=== PATIENT | female | born 2000 | race Caucasian/White ===

== ENCOUNTER 2021-12-30 17:34 | Emergency (ER) | payer BC, SELFPAY ==
[2021-12-30 17:37] VITALS: BP 95/60; PULSE 93; RESP 16; TEMP 36.8; O2SAT 97; BMI 21.6
--- NOTE | 2021-12-30 17:56 | ED_ITS ---
HPI - General Adult General Time Seen by Provider: 17:58 Date Seen: 12/30/21 Chief complaint: Skin/Abscess/Foreign Body Stated complaint: Perianal Abcess Time Seen by Provider: 12/30/21 17:55 Source: patient and RN notes reviewed Mode of arrival: ambulatory Limitations: no limitations History of Present Illness HPI narrative: Patient is a 21-year-old female with Crohn's disease coming in with concern of a perianal cyst. She has been dealing with a hemorrhoid and has been using [id number] products. The hemorrhoid really is not bothering her that much. She started to feel some increased pain in the rectal area and started to feel around. She felt a small cyst area just to her right of the hemorrhoid. She states about 4 years ago she had to have a cyst drained that she let go for a while and was almost grapefruit size in the perineal area. She states this was a bit closer to the vaginal area. She has not had any fevers or chills. She is on the control patch and is currently menstruating. Related Data Home Medications Medication Instructions Recorded Confirmed cyanocobalamin (vitamin B-12) 1,000 mcg 12/30/21 1,000 mcg/mL injection solution ergocalciferol (vitamin D2) 1,250 50,000 unit 12/30/21 mcg (50,000 unit) capsule mercaptopurine 50 mg tablet 50 mg 12/30/21 norelgestromin 150 mcg-e.estradiol 1 patch 12/30/21 35 mcg/24 hr weekly transderm patch (Xulane) Allergies Allergy/AdvReac Type Severity Reaction Status Date / Time No Known Drug Allergies Allergy Verified 12/30/21 17:41 Review of Systems Status of ROS: Reports: 6 or more systems reviewed and unremarkable except as noted in History and below [facility] Medical History (Updated 12/30/21 @ 19:13 by Renate Sanchez MD) Crohn's disease Exam Const: Vital Signs, click to edit/add: Vital Signs - 24 hr 12/30/21 17:37 Temperature 98.2 F Pulse Rate [Right Pulse Oximeter] 93 Respiratory Rate 16 Blood Pressure [Ri ght Upper Arm] 95/60 Pulse Oximetry 97 Oxygen Delivery Me thod Room Air Documenting provider has reviewed patient's vital signs: yes Common normals: no apparent distress, average body habitus, oriented x3, no limitations, healthy appearing and alert General appearance: cooperative, comfortable and well kempt HENMT: Common normals: normocephalic, head/scalp atraumatic and hearing grossly normal bilaterally Head and scalp: normocephalic and atraumatic Eye: Common normals: PERRL, EOMs intact bilaterally, conjunctivae normal and no scleral icterus Conjunctiva: conjunctiva(e) normal Pupil: PERRL Resp: Common normals: normal respiratory effort, no retractions, no use of accessory muscles and clear to auscultation bilaterally Auscultation: clear to auscultation bilaterally Cardio: Common normals: regular rate, regular rhythm, S1 normal heart sound, S2 normal heart sound, no gallops, no clicks and no murmurs Rate: regular rate Rhythm: regular rhythm Heart sounds: S1 normal and S2 normal GI: Common normals: Normal to inspection, nondistended, normoactive bowel sounds present, soft to palpation, non-tender, no hepatosplenomegaly and no masses Palpation: soft and no hepatosplenomegaly : Other: Anus is visualized, erythematous hemorrhoid right about 12 o'clock position, no purplish discoloration, really is not that tender for patient. She states it is really not bothering her. Just to patient's right about 1/2 cm from the anal verge about 5 o'clock position is a small raised tender area. Neuro: Common normals: oriented x3 Sensorium/orientation: alert Psych: Appearance: well kempt Course Vital Signs Vital signs: Initial Vital Signs Temperature 98.2 F 12/30/21 17:37 Temperature Source Temporal Artery Scan 12/30/21 17:37 Pulse Rate 93 12/30/21 17:37 Respiratory Rate 16 12/30/21 17:37 Blood Pressure 95/60 12/30/21 17:37 Blood Pressure Mean 71 12/30/21 17:37 Blood Pressure Position Sitting 12/30/21 17:37 Pulse Oximetry 97 12/30/21 17:37 Oxygen Delivery Method 12/30/21 17:37 Vital Signs Temperature 98.2 F 12/30/21 17:37 Pulse Rate 93 12/30/21 17:37 Respiratory Rate 16 12/30/21 17:37 Blood Pressure 95/60 12/30/21 17:37 Pulse Oximetry 97 12/30/21 17:37 Oxygen Delivery Method 12/30/21 17:37 Temperature 98.2 F 12/30/21 17:37 Pulse Rate 93 12/30/21 17:37 Respiratory Rate 16 12/30/21 17:37 Blood Pressure 95/60 12/30/21 17:37 Pulse Oximetry 97 12/30/21 17:37 Oxygen Delivery Method 12/30/21 17:37 Critical Care Time Critical Care Time Critical Care Time: No Discharge Plan Discharge Clinical Impression: Abscess, perianal Condition: Stable Instructions: Sitz Bath (DC), Rectal Abscess (ED) Additional Instructions: Recommend sitting in the tub twice a day or as needed to help clean herself. Start Augmentin and take as prescribed. May need to use a pad is this may drain for a few days. Contact your neurocritical care physician tomorrow and let them know of your complication. Should you develop fever, have increasing swelling or pain in the perineum or perirectal area, do recommend re-evaluation. Activity Level: Activity as Tolerated Prescriptions: No Action mercaptopurine 50 mg tablet 50 mg ergocalciferol (vitamin D2) 1,250 mcg (50,000 unit) capsule 50,000 unit Label Comments: TAKE 1 CAPSULE BY MOUTH EVERY WEEK FOR 8 WEEKS cyanocobalamin (vitamin B-12) 1,000 mcg/mL solution 1,000 mcg Xulane 150-35 mcg/24 hr patch weekly 1 patch Label Comments: APPLY 1 PATCH BY TRANSDERMAL ROUTE EVERY WEEK Follow Up/Referrals: Provider,Not a Local [Primary Care Provider] - Stand Alone Forms: [facility] Info Instructions Procedures I/D Type: abscess (Perianal) Details: simple Site: josie-rectal Pre procedure diagnosis: Perianal abscess Post procedure diagnosis: Same Site marking: not applicable Verification/time out: correct patient, correct site, correct procedure and time out performed Name of person performing procedure: Renate Sanchez Local Anesthetic: lidocaine 1% and with epi Amount of anesthesia used (mL): 3 Technique: other (15 blade used for incision, as close to anal verge as possible) Amount of fluid expressed (mL): 2 Packing used?: none Estimated blood loss (if any): other (specify) (Minimal oozing of blood) Complications: pain Conclusion: patient tolerated procedure (Did review complication fistula was with these abscesses)
[2021-12-30] MEDS: lidocaine HCL 2 % JELLY (TOP) STERILE 6 ML TOPICAL (18:30)
== END 2021-12-30 19:30 | disposition home or self-care (01) ==
PROVIDERS: Emergency Provider Family Medicine
DX: K61.0 Anal abscess (principal)
CPT/HCPCS: 10060; 99283

== ENCOUNTER 2022-07-25 16:07 | Inpatient (IN) | payer BC, SELFPAY ==
--- NOTE | 2022-07-25 | CRLHL7_ITS ---
For Patients: As a result of the Century Cures Act, medical imaging exams and procedure reports are released immediately into your electronic medical record. You may view this report before your referring provider. If you have questions, please contact your health care provider. Indication: HIP GROIN PAIN LT SIDE Technique: Pelvis and left hip 3 views Comparison: None Findings: Bones: Alignment is normal. No fractures or bone lesions. Joint spaces: Joint spaces are preserved. No degenerative changes. Soft tissues: Unremarkable. Impression: No findings to explain pain. Dictated by Amilcar La MD @ 07/25/2022 7:48:20 PM (Electronically Signed)
[2022-07-25 16:45] VITALS: BP 92/62; PULSE 104; RESP 14; TEMP 36.8; O2SAT 97; BMI 17.9
--- NOTE | 2022-07-25 17:36 | ED_ITS ---
HPI - Extremity Injury (Lower) General Time Seen by Provider: 17:36 Date Seen: 07/25/22 Chief Complaint: Extremity Pain/Injury, Lower Stated Complaint: L thigh shooting pain, very painful Time Seen by Provider: 07/25/22 17:36 Source: patient, RN notes reviewed and old records reviewed Mode of arrival: ambulatory Limitations: no limitations History of Present Illness HPI Narrative: Patient is a very pleasant 21-year-old female with a history of malnutrition secondary to Crohn's disease who comes to the emergency room with complaints of left leg pain. Patient notes that in March of this year she began experiencing numbness on the outside of her left thigh. She notes that she was told that it would go way but it did not. She states over the past 2 weeks it has now changed in to pain and is quite intense. She notes that she cannot get comfortable. 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 She states that she has difficulty walking and driving. She has tried heat and ice but this only worsens the pain. She does not think there is any weakness on that side and she denies hip or back pain. She cannot recall any injury. In May patient was tapered off of steroids after a flare of her Crohn's. She was very anemic and malnourished at that time. And she was hospitalized. She normally sees Nini samaniego. She is due for ENTYVIO injection in August. She notes that she is also lactose tolerant is very limited on her food intake. She notes that her Crohn's is ?not doing well and ?. Patient denies any discomfort or numbness extending past the knee. Again, cannot recall any trauma. Has not used any pain medication for this. Related Data Home Medications Medication Instructions Recorded Confirmed cyanocobalamin (vitamin B-12) 1,000 mcg subcut .QMONTH 12/30/21 07/25/22 1,000 mcg/mL injection solution ergocalciferol (vitamin D2) 1,250 50,000 unit PO QWEEK 12/30/21 07/25/22 mcg (50,000 unit) capsule mercaptopurine 50 mg tablet 50 mg PO 12/30/21 Allergies Allergy/AdvReac Type Severity Reaction Status Date / Time No Known Drug Allergies Allergy Verified 12/30/21 17:41 Review of Systems Status of ROS: Reports: 10 or more systems reviewed and unremarkable except as noted in History and below Const: Reports: change in weight and fatigue; Denies: fever or chills Eyes: Denies: change in vision ENMT: Denies: throat pain, neck pain, throat swelling or difficulty swallowing Cardio: Denies: chest pain or shortness of breath with exertion Resp: Denies: shortness of breath or cough GI: Denies: abdominal pain, nausea, vomiting, diarrhea or difficulty swallowing : Denies: painful urination Musculo: Reports: extremity pain; Denies: back pain, neck pain, extremity swelling or joint pain Integ/Breast: Denies: rash Neuro: Denies: headache Endo: Reports: fatigue; Denies: excessive urination Allergy/Immuno: Denies: throat swelling PFSH PFSH Medical History (Updated 07/25/22 @ 22:10 by Gin Reynolds MD) Crohn's disease ?K50.90 - Crohn's disease, unspecified, without complications (ICD-10) Protein-calorie malnutrition, moderate ?E44.0 - Moderate protein-calorie malnutrition (ICD-10) Surgical History (Updated 07/25/22 @ 21:54 by Gin Reynolds MD) Do-rectal abscess ?K61.1 - Rectal abscess (ICD-10) H/O ileostomy ?Z98.890 - Other specified postprocedural states (ICD-10) Family History (Updated 07/25/22 @ 21:24 by Gin Reynolds MD) Other Do-rectal abscess Social History (Updated 07/25/22 @ 21:29 by Gin Reynolds MD) Narrative: lives in , single. Never . no children. vapes nicotine/THC. smokes THC prn nausea. no regular alcohol. Smoking Status: Never smoker Do you use any of these nicotine containing products: None Second hand tobacco smoke exposure: No How often do you have a drink containing alcohol: never How many standard drinks containing alcohol do you have on a typical day: 1 or 2 How often do you have six or more drinks on one occasion: Never AUDIT-C Alcohol total score: 0 Non-prescribed substance use: marijuana (any form) Caffeine: No service: No Exam Narrative: Exam Narrative: Patient is alert and oriented. Presents here with a family member I believe. She is pale in appearance. EOM is full. No respiratory distress. Palpation down lumbar spine and buttock including sciatic notch without discomfort. No pain over the greater trochanter. Pain appears to be left lateral thigh over the iliotibial tibial band. No evidence of asymmetry of thighs. Hip flexion knee extension and flexion as well abduction and adduction all within normal limits. Point tenderness noted over the iliotibial band. She is able to walk on her toes. When walking on her heels it seems like she has slight decreased ability to keep her foot up on the left. Plantar flexion bilaterally equal possibly subtle decreased dorsiflexion on the left. DTRs 0 on the left knee and 1+ on the right. Equal at the ankles. Const: Vital Signs, click to edit/add: Vital Signs - 24 hr 07/25/22 16:45 07/25/22 20:02 07/25/22 20:28 Temperature 98.3 F 98.5 F Pulse Rate [Left R adial] 82 Pulse Rate [Right Pulse Oximeter] 104 H 89 Respiratory Rate 14 18 20 Blood Pressure [Ri ght Arm] 103/50 L Blood Pressure [Ri ght Upper Arm] 92/62 89/56 L Pulse Oximetry 97 100 98 Oxygen Delivery Me thod Room Air Room Air Room Air 07/25/22 20:28 Temperature Pulse Rate [Left R adial] Pulse Rate [Right Pulse Oximeter] Respiratory Rate 18 Blood Pressure [Ri ght Arm] Blood Pressure [Ri ght Upper Arm] Pulse Oximetry 98 Oxygen Delivery Me thod Room Air Documenting provider has reviewed patient's vital signs: yes Course Course Hospital Course: Differential diagnosis includes ileal ability ill band injury, radicular pain, malnutrition. Will draw blood to include CBC, comprehensive, sed rate, CRP, magnesium, thigh min, B12. Will also obtain x-rays of the lumbar spine and femur. Reevaluation(s) Reevaluation #1: Patient noted to have a potassium of 2.7. Upon further discussion she notes that she has had increasing loose stools recently. States that she is unable to keep anything down. Will place an IV and give her 1 L of normal saline, 10 mEq bumps of potassium for a total of 4. Will also attempt p.o. replacement although this likely will induce diarrhea. Patient does not know of history of leukocytosis with her Crohn's in the past. Vital Signs Vital signs: Initial Vital Signs Temperature 98.3 F 07/25/22 16:45 Temperature Source Temporal Artery Scan 07/25/22 16:45 Pulse Rate 104 H 07/25/22 16:45 Respiratory Rate 14 07/25/22 16:45 Blood Pressure 92/62 07/25/22 16:45 Blood Pressure Mean 72 07/25/22 16:45 Blood Pressure Position Sitting 07/25/22 16:45 Pulse Oximetry 97 07/25/22 16:45 Oxygen Delivery Method Room Air 07/25/22 16:45 Vital Signs Temperature 98.3 F 07/25/22 16:45 Pulse Rate 104 H 07/25/22 16:45 Respiratory Rate 14 07/25/22 16:45 Blood Pressure 92/62 07/25/22 16:45 Pulse Oximetry 97 07/25/22 16:45 Oxygen Delivery Method Room Air 07/25/22 16:45 Temperature 98.5 F 07/25/22 20:28 Pulse Rate 82 07/25/22 20:28 Respiratory Rate 18 07/25/22 20:28 Blood Pressure 103/50 L 07/25/22 20:28 Pulse Oximetry 98 07/25/22 20:28 Oxygen Delivery Method Room Air 07/25/22 20:28 MDM - Extremity Injury (Lower) MDM Narrative Medical decision making narrative: 1. Left leg pain-x-rays do not show any abnormality. Will treat with Toradol 15 mg IV. 2. Crohn's with malnutrition -IV will be placed. Further medications per inpat ient physician. Leukocytosis noted but no significant pain with abdominal exam. Patient does note history of perirectal abscess and does have a C tongue in place at this time. She notes no increased problems with this or excessive discomfort. 3. Hypokalemia-oral potassium 50 mEq plus 10 mEq riders have been ordered. Patient does worn me that she may be able to drink potassium but it will ?go r ight through her?. Zofran 4 mg IV x1. 4. Relative hypomagnesemia-current value 1.8 but probably represents overall body depletion. 1 g ordered IV. 5. Disposition-admit to the floor under the care of Dr. Reynolds. Do not have all of our tests ordered nor results returned. Given high patient volume have expedited patient's moved to the floor. Medical Records Attestation: I reviewed the patient's medical records. Lab Data Attestation: I reviewed the patient's lab results. Labs: Lab Results 07/25/22 Range/Units 18:08 WBC 16.04 H (4.50-11.00) K/uL RBC 4.64 (4.00-5.20) m/uL Hgb 12.5 (12.0-16.0) gm/dL Hct 37.7 (33.0-51.0) % MCV 81 (80-100) fL MCH 27 (26-34) pg MCHC 33 (32-36) gm/dL RDW Coeff of Moises 15.1 (11.5-15.5) % Plt Count 562 H (140-440) K/uL Neut % (Auto) 78.9 H (42.0-72.0) % Lymph % (Auto) 12.7 L (20-44) % [place] % (Auto) 6.6 (0.0-11.0) % Eos % (Auto) 1.4 (0.0-7.0) % Baso % (Auto) 0.1 (0.0-3.0) % Neut # (Auto) 12.70 H (1.7-7.0) K/uL Lymph # (Auto) 2.00 (0.90-2.90) K/uL [place] # (Auto) 1.10 H (0.00-0.90) K/UL Eos # (Auto) 0.20 (0.00-0.50) K/uL Baso # (Auto) 0.00 (0.00-0.30) K/uL ESR 53 H (2-20) mm/hr Sodium 131 L (135-149) mmol/L Potassium 2.7 L* (3.6-5.1) mmol/L Chloride 95 L (96-114) mmol/L Carbon Dioxide 30 (20-32) mmol/L BUN 7 (5-24) mg/dL Creatinine 0.5 (0.5-1.5) mg/dL Estimated Creat Clear 128.72 Estimated GFR 137 ml/min Glucose 91 (60-115) mg/dL Calcium 8.1 L (8.4-10.6) mg/dL Phosphorus 3.7 (2.5-4.5) mg/dL Magnesium 1.8 (1.5-2.6) mg/dL Total Bilirubin 0.4 (0.1-1.5) mg/dL AST 19 (12-35) U/L ALT 13 (4-35) U/L Alkaline Phosphatase 139 (40-150) U/L C-Reactive Protein 8.7 H (0.5-1.0) mg/dL Total Protein 6.9 (6.0-8.3) g/dL Albumin 2.8 L (3.3-5.0) g/dL Vitamin B12 815 (243-894) pg/mL Procalcitonin 38.90 H (<0.50) ng/mL TSH 2.080 (0.270-4.20) uIU/mL Free T4 2.35 H (0.70-1.85) ng/dL Imaging Data Lumbar spine: Attestation: I have reviewed the pertinent imaging results. My impression: No obvious abnormalities Radiologist's impression: Bones: Alignment is normal.? No fractures or significant bone lesions. Joints: Disc spaces and facets are unremarkable. Soft tissues: Unremarkable. Femur x-ray: Attestation: I have reviewed the pertinent imaging results. My impression: No obvious abnormalities Radiologist's impression: Bones: Alignment is normal. No fractures or bone lesions. Joint spaces: Joint spaces are preserved. No degenerative changes. Soft tissues: Unremarkable. Impression: No findings to explain pain. Chest x-ray: Attestation: I have reviewed the pertinent imaging results. My impression: No infiltrates. Radiologist's impression: Cardiovascular and mediastinum:? Heart size and vasculature are normal in caliber and appearance.? Mediastinum is within normal limits.? Lungs and pleural spaces:? Lungs are clear.? No sign of infiltrate or mass. ?No sign of pleural effusion.? No pneumothorax.? Bones and soft tissues:? No significant findings. Discharge Plan Discharge Clinical Impression: Acute pain of left thigh, Crohn's disease, Hypokalemia Patient Disposition: Admitted As Inpatient Condition: Improved
--- NOTE | 2022-07-25 17:47 | CRLHL7_ITS ---
For Patients: As a result of the Cures Act, medical imaging exams and procedure reports are released immediately into your electronic medical record. You may view this report before your referring provider. If you have questions, please contact your health care provider. INDICATION: Left lateral leg pain. TECHNIQUE: Lumbar spine 2 view. COMPARISON: None. FINDINGS: Bones: Alignment is normal. No fractures or significant bone lesions. Joints: Disc spaces and facets are unremarkable. Soft tissues: Unremarkable. Dictated by Shravan Garcia MD @ 07/25/2022 7:44:30 PM (Electronically Signed)
--- NOTE | 2022-07-25 17:47 | CRLHL7_ITS ---
For Patients: As a result of the Cures Act, medical imaging exams and procedure reports are released immediately into your electronic medical record. You may view this report before your referring provider. If you have questions, please contact your health care provider. Indication: Left lateral leg pain, dorsiflexion weakness Technique: Two views Comparison: None Findings/Impression: Bones: Alignment is normal. No fractures or bone lesions. Joint spaces: Unremarkable. Soft tissues: Unremarkable. Dictated by Alden Solis MD @ 07/25/2022 7:47:08 PM (Electronically Signed)
[2022-07-25 18:17] LABS: Basophils Percent Auto 0.1 % (0.0-3.0); Eosinophils Percent Auto 1.4 % (0.0-7.0); Hematocrit 37.7 % (33.0-51.0); Hemoglobin* 12.5 gm/dL (12.0-16.0); Immature Granulocytes Pct Auto 0.3 %; Lymphocytes Percent Auto 12.7 % (20-44); Mean Corpuscular HGB Conc 33 gm/dL (32-36); Mean Corpuscular Hemoglobin 27 pg (26-34); Mean Corpuscular Volume 81 fL (80-100); Monocytes Percent Auto 6.6 % (0.0-11.0); Neutrophils Percent Auto 78.9 % (42.0-72.0); Platelet Count* 562 K/uL (140-440); RDW Coefficient of Variation % 15.1 % (11.5-15.5); Red Blood Count 4.64 m/uL (4.00-5.20); White Blood Count* 16.04 K/uL (4.50-11.00)
[2022-07-25 18:30] LABS: Albumin* 2.8 g/dL (3.3-5.0); Chloride* 95 mmol/L (96-114); Slide Review Reflex No; Sodium* 131 mmol/L (135-149)
[2022-07-25 18:32] LABS: Bilirubin Total* 0.4 mg/dL (0.1-1.5); Creatinine* 0.5 mg/dL (0.5-1.5); Est. Creatinine Clearance* 128.72; Estimated Glomerular Filt Rate 137 ml/min
[2022-07-25 18:33] LABS: Alanine Aminotransferase* 13 U/L (4-35); Alkaline Phosphatase* 139 U/L (40-150); Aspartate Amino Transferase* 19 U/L (12-35); Blood Urea Nitrogen* 7 mg/dL (5-24); Carbon Dioxide* 30 mmol/L (20-32); Glucose* 91 mg/dL (60-115); Total Protein* 6.9 g/dL (6.0-8.3)
[2022-07-25 18:34] LABS: Calcium* 8.1 mg/dL (8.4-10.6); Magnesium* 1.8 mg/dL (1.5-2.6)
[2022-07-25 18:35] LABS: Potassium* 2.7 mmol/L (3.6-5.1)
--- NOTE | 2022-07-25 18:35 | ED.NURSE ---
call from lab, winnie Wright MD notified.
[2022-07-25 18:36] LABS: C Reactive Protein* 8.7 mg/dL (0.5-1.0)
--- NOTE | 2022-07-25 18:44 | CRLHL7_ITS ---
For Patients: As a result of the Century Cures Act, medical imaging exams and procedure reports are released immediately into your electronic medical record. You may view this report before your referring provider. If you have questions, please contact your health care provider. Indication: Leukocytosis. Technique: Chest 2 views Comparison: None Findings/Impression: Cardiovascular and mediastinum: Heart size and vasculature are normal in caliber and appearance. Mediastinum is within normal limits. Lungs and pleural spaces: Lungs are clear. No sign of infiltrate or mass. No sign of pleural effusion. No pneumothorax. Bones and soft tissues: No significant findings. Dictated by Alden Solis MD @ 07/25/2022 7:46:08 PM (Electronically Signed)
[2022-07-25 19:22] LABS: Vitamin B12* 815 pg/mL (243-894)
[2022-07-25 19:26] LABS: Erythrocyte SedimentationRate* 53 mm/hr (2-20)
[2022-07-25] MEDS: 0.9 % SODIUM CHLORIDE 1000 ml 1,000 ML IV (19:43)
[2022-07-25] MEDS: KETOROLAC 15 MG/ML inj IVP (19:45)
[2022-07-25] MEDS: POTASSIUM CHLORIDE 10 MEQ/100 ML PIGGYBACK 100 MEQ IVPB ×2 (19:45→21:36)
[2022-07-25] MEDS: ONDANSETRON 2 MG/ML inj 4 MG IVP (19:45)
[2022-07-25 20:02] VITALS: BP 89/56; PULSE 89; RESP 18; O2SAT 100
--- OUTSIDE RECORDS SUMMARY | 2022-07-25 20:05 | XMS_ITS | Continuity of Care Document ---
Author Name Unknown Organization [facility] Address [address] [address] [place] [address] Phone Care Team Providers Care Certified Dialysis Technician Name Role Phone Patricio Velasco MD Unavailable Unavailable Allergies, Adverse Reactions, Alerts Substance Reaction Status Criticality No Known Allergies Active No Inform ation Medications Medication Instructions Dosage Effective Dates (start - stop) Status Comments mercaptopurine 50 mg tablet TAKE 1 TABLET BY MOUTH EVERY DAY - Active Entyvio 300 mg intravenous solution Administer Entyvio 300 mg every six weeks, infuse by IV route - Active syringe with needle 1 mL 25 gauge x 1 Use as directed for vitamin B12 injections. - Active Vitamin D2 1,250 mcg (50,000 unit) capsule take 1 capsule by oral route every week for 8 weeks - Active cyanocobalamin (vit B-12) 1,000 mcg/mL injection solution inject 1 milliliter by intramuscular route once a week for 4 weeks then once a month thereafter - Active Valtrex 500 mg tablet take 1 tablet by o ral route every day as needed 500 MG - Active Calcium 600 600 mg calcium (1,500 mg) tablet take 1 by oral route 2 times every day 1 - Active Chewable-Guy tablet take [address] e every day - Active iron 325 mg (65 mg iron) tablet take 3 tablet by ORAL route every day 975 MG - Active Vitamin D3 5,000 unit tablet take 1 Tablet by Oral route every day 1 Tablet - Active Procedures Procedure Date Offic/outpt E&m Estab Low-mod 3 Entyvio - vedolizumab Iv Infus Therap/dx-by Phys; To Routine Serum Collection Medical nutrition therapy, initial, each 15 minutes Entyvio - vedolizumab Iv Infus Therap/dx-by Phys; To 23 Offic/outpt E&m Estab Minor Offic/outpt E&m Estab Mod-hi 2 23 Routine Serum Collection Subsqt Hosp-da E&m Minr Compl 3 Subsqt Hosp-da E&m Minr Compl 3 Colonoscopy Flex; W/bx 1/mx Subsqt Hosp-da E&m Minr Compl 3 Init Inpt Cons New/est Mod-hi 3 Entyvio - vedolizumab Iv Infus Therap/dx-by Phys; To 23 Vit B-12 Cyanocobalamin -1000 M 023 Therap/dx Inj; Subq/im Offic/outpt E&m Estab Mod-hi 2 22 Entyvio - vedolizumab Iv Infus Therap/dx-by Phys; To 22 Routine Serum Collection Offic/outpt E&m Estab Mod-hi 2 22 Immuniz Admin; 1/combo Vacc/to Flucelvax Quad 0.5 ML Iv Infus Therap/dx-by Phys; To Entyvio - vedolizumab Offic/outpt E&m Estab Vit B-12 Cyanocobalamin -1000 M 022 Therap/dx Inj; Subq/im Offic/outpt E&m Estab Low-mod 2 Routine Serum Collection Iv Infus Therap/dx-by Phys; To Entyvio - vedolizumab Iv Infus Therap/dx-by Phys; To Entyvio - vedolizumab Routine Serum Collection Iv Infus Therap/dx-by Phys; To Entyvio - vedolizumab Iv Infus Therap/dx-by Phys; To Entyvio - vedolizumab Routine Serum Collection Offic/outpt E&m Estab Offic/outpt E&m Estab Low-mod 2 Routine Serum Collection Entyvio - vedolizumab Iv Infus Therap/dx-by Phys; To Iv Infus Therap/dx-by Phys; To Entyvio - vedolizumab Iv Infus Therap/dx-by Phys; To Entyvio - vedolizumab Routine Serum Collection Established Level 4 Routine Serum Collection Offic/outpt E&m Estab Mod-hi 2 Offic/outpt E&m Estab Low-mod 1 Routine Serum Collection Glutamyltransferase Gamma Hepatitis C Antibody; Hepatic Function Panel Routine Serum Collection Immuniz Admin; 1/combo Vacc/to Pneumococcal Polysacch Vac-aicha Bld Ct; Hg/pltlt Ct Auto/compl Iron Iron Binding Capacity Folic Acid; Serum Ferritin Cyanocobalamin Vitamin D; 25 Hydroxy Hepatic Function Panel Established Level 4 Immuniz Admin; 1/combo Vacc/to Hep A-hep B Vaccine Adult Dose Routine Serum Collection Immuniz Admin; 1/combo Vacc/to Hep A-hep B Vaccine Adult Dose FilmArray GI Panel Offic/outpt E&m Estab Mod-hi 2 Routine Serum Collection Immuniz Admin; 1/combo Vacc/to Influenza vaccine-quadrivalent 0.5 ML No Immuniz Admin; 2/> Sing/comb V [id number] Vaccine Ag-immunoassay; Hep B Surface 0 Gg; Iga, Igd, Igg, Igm, Ea Bld Ct; Hg/pltlt Ct Auto/compl Sed Rate, Erythrocyte; Auto C-reactive Prot Comp Metabolic Panel Ferritin Folic Acid; Serum Glutamyltransferase Gamma Hepatitis A Antibody; Igg & Ig Hep B Core Antibody Hepatitis B Surface Antibody Iron Iron Binding Capacity Cyanocobalamin Vitamin D; 25 Hydroxy Bilirubin; Direct Routine Serum Collection Offic/outpt E&m Estab Mod-hi 2 Sep-15-[address] Hg/pltlt Ct Auto/compl 20 C-reactive Prot Comp Metabolic Panel Cyanocobalamin Routine Serum Collection Hepatic Function Panel Routine Serum Collection Offic/outpt E&m Estab Mod-hi [address] Hg/pltlt Ct Auto/compl Prothrombin Time Hepatic Function Panel Routine Serum Collection Hepatic Function Panel Gg; Iga, Igd, Igg, Igm, Ea Routine Serum Collection Ag-immunoassay; Hep B Surface 0 Hepatitis C Antibody; Prothrombin Time Gg; Iga, Igd, Igg, Igm, Ea Routine Serum Collection Bld Ct; Hg/pltlt Ct Auto/compl 20 Sed Rate, Erythrocyte; Auto C-reactive Prot Hepatic Function Panel Routine Serum Collection Bld Ct; Hg/pltlt Ct Auto/compl 19 Sed Rate, Erythrocyte; Auto C-reactive Prot Comp Metabolic Panel Offic/outpt E&m Estab Low-mod 9 Immuniz Admin; 1/combo Vacc/to 19 Influenza vaccine-quadrivalent 0.5 ML No Routine Serum Collection Hepatic Function Panel Bld Ct; Hg/pltlt Ct Auto/compl 19 Routine Serum Collection Hepatic Function Panel Bld Ct; Hg/pltlt Ct Auto/compl 19 Routine Serum Collection Offic/outpt E&m Estab Mod-hi [address] Hg/pltlt Ct Auto/compl 19 C-reactive Prot Comp Metabolic Panel Ferritin Iron Iron Binding Capacity Cyanocobalamin Vitamin D; 25 Hydroxy Offic/outpt E&m Estab Iv Infus Therap/dx-by Phys; To 18 Stelara Infusion Routine Serum Collection Init Hosp-da E&m Mod Severity 8 Subsqt Hosp-da E&m Minr Compl 8 Subsqt Hosp-da E&m Minr Compl 8 Subsqt Hosp-da E&m Sig Compl 3 18 Routine Serum Collection Bld Ct; Hg/pltlt Ct Auto/compl 18 Comp Metabolic Panel Offic/outpt E&m Estab Mod-hi 2 18 Routine Serum Collection Bld Ct; Hg/pltlt Ct Auto/compl 18 Hepatic Function Panel Offic/outpt E&m Estab Low-mod 8 Routine Serum Collection C-reactive Prot Bld Ct; Hg/pltlt Ct Auto/compl 18 Sed Rate, Erythrocyte; Auto Comp Metabolic Panel Routine Serum Collection Phosphorus Inorganic Bilirubin; Direct Comp Metabolic Panel Bld Ct; Hg/pltlt Ct Auto/compl 18 Routine Serum Collection Phosphorus Inorganic Basic Metabolic Panel Routine Serum Collection Offic/outpt E&m Estab Mod-hi [address] Hg/pltlt Ct Auto/compl 18 Phosphorus Inorganic Cyanocobalamin C-reactive Prot Comp Metabolic Panel Routine Serum Collection Bld Ct; Hg/pltlt Ct Auto/compl 18 Sed Rate, Erythrocyte; Auto C-reactive Prot Vitamin D; 25 Hydroxy Comp Metabolic Panel Routine Serum Collection Bld Ct; Hg/pltlt Ct Auto/compl 18 Routine Serum Collection Routine Serum Collection Offic/outpt E&m Estab Mod-hi 2 18 Cyanocobalamin C-reactive Prot Comp Metabolic Panel Bld Ct; Hg/pltlt Ct Auto/compl 18 Sed Rate, Erythrocyte; Auto Routine Serum Collection C-reactive Prot Vitamin D; 25 Hydroxy Comp Metabolic Panel Bld Ct; Hg/pltlt Ct Auto/compl 17 Sed Rate, Erythrocyte; Auto Offic/outpt E&m Estab Low-mod 7 Routine Serum Collection Urea Nitro; Uziel Creatinine; Bld Ag-immunoassay; Hep B Surface 6 Hepatic Function Panel Bld Ct; Hg/pltlt Ct Auto/compl 16 Routine Serum Collection Offic/outpt E&m Estab Mod-hi [address] Hg/pltlt Ct Auto/compl 16 Comp Metabolic Panel Offic/outpt E&m Estab Mod-hi 2 16 Subsqt Hosp-da E&m Minr Compl 6 Subsqt Hosp-da E&m Minr Compl 6 Subsqt Hosp-da E&m Minr Compl 6 Subsqt Hosp-da E&m Minr Compl 6 Subsqt Hosp-da E&m Minr Compl 6 Subsqt Hosp-da E&m Minr Compl 6 Subsqt Hosp-da E&m Minr Compl 6 Subsqt Hosp-da E&m Minr Compl 6 Offic/outpt E&m Estab Mod-hi 2 15 Subsqt Hosp-da E&m Minr Compl 5 Init Hosp-da E&m Mod Severity 5 Subsqt Hosp-da E&m Minr Compl 5 C. Difficile Toxin Gene, SALINA Routine Serum Collection Bld Ct; Hg/pltlt Ct Auto/compl 15 C-reactive Prot Comp Metabolic Panel Offic/outpt E&m Estab Mod-hi 2 15 Offic/outpt E&m Estab Mod-hi 2 15 Offic/outpt E&m Estab Mod-hi 2 15 Offic/outpt E&m Estab Mod-hi 2 15 Offic/outpt E&m Estab Mod-hi 2 14 Routine Serum Collection Ua Dip Stik/tablet; Wo Micro A 14 Sed Rate, Erythrocyte; Auto Cyanocobalamin C-reactive Prot Comp Metabolic Panel Iron Iron Binding Capacity Bilirubin; Direct Bld Ct; Hg/pltlt Ct Auto/compl 14 Offic/outpt E&m Estab Mod-hi 2 13 Routine Serum Collection Bld Ct; Hg/pltlt Ct Auto/compl 13 Sed Rate, Erythrocyte; Auto Ag-immunoassay; Hep B Surface 3 C-reactive Prot Comp Metabolic Panel Offic/outpt E&m Estab Low-mod 2 Routine Serum Collection G8447 Bld Ct; Hg/pltlt Ct Auto/compl 12 Sed Rate, Erythrocyte; Auto Cyanocobalamin C-reactive Prot Comp Metabolic Panel Offic/outpt E&m Estab Mod-hi 2 12 [id number] Ugi Endo; W/bx 1/mx Colonoscopy Flex; W/bx 1/mx Offic Cons New/estab Mod Routine Serum Collection G8447 Bld Ct; Hgb Iron Iron Binding Capacity Advance Directives Directive Yes / No Effective Date File Name No Information Encounters Encounter Description Practice Location Reason(s) For Visit Diagnoses Date Provider Providers Copied on Encounter [facility], [address] [address], [facility] [place], [id number], [place] tel:[phone] [facility] Crohn's disease of small intestine without complications 3 Krista Curry. [address] [facility], [address], [id number], [place]. tel:[phone] Referring Provider: Referral Self. Offic/outpt E&m Estab Low-mod [facility], [address] [address], [place], [address], [place] tel:[phone] [facility] GI Symptoms or Concerns (chief complaint) Abnormal LFTs 3 Jessa Ellis. [address], [id number], [place]. tel:[phone] Referring Provider: Referral Self. [facility], [address] [address], [facility] [place], [address], [place] tel:[phone] [facility] Crohn's disease of small intestine without complications 3 Jessa Ellis. [address], [id number], [place]. tel:[phone] Referring Provider: Referral Self. [facility], [address] [address], [facility] [place], [address], [place] tel:[phone] [facility] Crohn's disease of small intestine without complications 3 Marianna Tran. [address] [facility], [address], [place], [address], [place]. tel:[phone] [facility], [address] [address], [place], [address], [place] tel:[phone] [facility] Crohn's disease of small intestine without complications 3 Marianna Tran. [address], [id number], [place]. tel:[phone] Referring Provider: Referral Self. [facility], [address] [address], [place], [address], [place] tel:[phone] [facility] GI Symptoms or Concerns (chief complaint) Weight lossFatty liver disease, nonalcoholicDi etary counseling and surveillance 3 Laney Loco. [address], [id number], [place]. tel:[phone] Referring Provider: Referral Self. [facility], [address] [address], [place], [address], [place] tel:[phone] [facility] Crohn's disease of small intestine without complications 3 Rishabh Adams. [address] [facility] [address], [place], [id number], [place]. tel:[phone] Referring Provider: Referral Self. Offic/outpt E&m Estab Minor [facility], [address] [address], [place], [address], [place] tel:[phone] [facility] GI Symptoms or Concerns (chief complaint) Fatty liver disease, nonalcoholicEl evated liver function tests 3 Marianna Tran. [facility] [address], [id number], [place]. tel:[phone] Referring Provider: Referral Self. [facility], [address] [address], [place], [address], [place] tel:[phone] [facility] Crohn's disease of small intestine without complication 3 Krista Curry. [address] [facility], [facility] [address], [place], [place], [address], [place]. tel:[phone] Offic/outpt E&m Estab Mod-hi 2 [facility], [address] [address], [place], [place], [address], [place] tel:[phone] [facility] Comment (chief complaint) Crohn's disease of small intestine without complicationPe rianal Crohn's disease, with fistulaStrictu re of small intestineLow serum albuminAbnorma l liver enzymesFatty liver disease, nonalcoholic 3 Krista Curry. [address] [facility], [facility], [place], [place], [address], [place]. tel:[phone] Referring Provider: Referral Self. [facility] [place], [address] [address], [place], [place], [address], [place] tel:[phone] [facility] No Information 3 Zachery Santamaria. [address] [facility], [facility], [place], [place], [address], [place]. tel:[phone] Subsqt Hosp-da E&m Minr Compl [facility], [address] [address], [place], [place], [address], [place] tel:[phone] [facility] No Information 3 Zachery VILLASEÑOR Hina. [address] [facility], [facility] [address], [place], [address], [place]. tel:[phone] Referring Provider: Patricio Velasco MD, [address] [facility] [address], [place], [address] . tel:[phone] Subsqt Hosp-da E&m Minr Compl [facility], [address] [address], [place], [place], [address], [place] tel:[phone] [facility] No Information 3 Art Katz. [address] [place] [address], [address], [id number], [place]. tel:[phone] Referring Provider: Sterling Cordova MD, [address] [facility] [address], [place], [address] . tel:[phone] Init Inpt Cons New/est Mod-hi [facility], [address] [address], [place], [address], [place] tel:[phone] [facility] No Information 3 Zachery Santamaria. [address] [facility], [address], [place], [place], [address], [place]. tel:[phone] Referring Provider: Sterling Cordova MD, [address] [facility] [address], [place], [address] . tel:[phone] [facility], [address] [address], [place], [address], [place] tel:[phone] [facility] Crohn's disease of small intestine without complicationsN ight sweatsWeight loss 3 Rishabh Adams. [address] [facility], [address], [place], [place], [address], [place]. tel:[phone] Referring Provider: Referral Self. [facility], [address] [address], [place], [address], [place] tel:[phone] [facility] Crohn's disease of small intestine with other complicationVi tamin B12 deficiency 3 Jacquie Gabriel. [address] [facility], [address], [place], [place], [address], [place]. tel:[phone] Referring Provider: Referral Self. [facility], [address] [address], [place], [address], [place] tel:[phone] [facility] Abnormal liver enzymesFatty liver disease, nonalcoholic 2 Marianna Tran. [address] [facility], [address], [place], [place], [address], [place]. tel:[phone] [facility], [address] [address], [place], [address], [place] tel:[phone] [facility] Crohn's disease of small intestine without complications 2 Marianna Tran. [address], [id number], [place]. tel:[phone] Offic/outpt E&m Estab Mod-hi 2 [facility], [address] [address], [place], [address], [place] tel:[phone] [facility] GI Symptoms or Concerns (chief complaint) Elevated alkaline phosphatase level 2 Marianna Tran. [address], [id number], [place]. tel:[phone] Referring Provider: Referral Self. [facility], [address] [address], [place], [address], [place] tel:[phone] [facility] Crohn's disease of small intestine without complications 2 Quique Morales. [address], [id number], [place]. tel:[phone] Referring Provider: Referral Self. [facility], [address] [address], [place], [id number], [place] tel:[phone] [facility] Crohn's disease of small intestine without complications 2 Krista Curry. [address], [id number], [place]. tel:[phone] Referring Provider: Referral Self. [facility], [address] [address], [place], [address], [place] tel:[phone] [facility] Crohn's disease of small intestine without complications 2 Krista Curry. [address], [id number], [place]. tel:[phone] Offic/outpt E&m Estab Mod-hi 2 [facility], [address] [address], [place], [id number], [place] tel:[phone] [facility] GI Symptoms or Concerns (chief complaint) Crohn's disease of small intestine without complicationsL ower abdominal painNausea and vomiting in adultHeartburn Constipation, unspecified constipation typeAlkaline phosphatase elevation 2 Krista Curry. [address] [facility], [address], [id number], [place]. tel:[phone] Referring Provider: Referral Self. [facility], [address] [address], [place], [address], [place] tel:[phone] [facility] No Information 2 Krista Curry. [address] [facility], [address], [id number], [place]. tel:[phone] [facility], [address] [address], [place], [id number], [place] tel:[phone] [facility] Crohn's disease of small intestine without complications 2 Krista Curry. [address] [facility], [facility] [address], [place], [address], [place]. tel:[phone] [facility], [address] [address], [place], [address], [place] tel:[phone] [facility] Crohn's disease of both small and lg int w/o complications 2 Rishabh Adams. [address] [facility], [facility] [address], [place], [address], [place]. tel:[phone] Referring Provider: Referral Self. Offic/outpt E&m Estab [facility], [address] [address], [place], [address], [place] tel:[phone] [facility] GI Symptoms or Concerns (chief complaint) Vitamin B12 deficiencyCroh n's disease of both small and large intestine without complication 2 Joel Ferguson. [address] [facility], [facility] [address], [place], [address], [place]. tel:[phone] Referring Provider: Referral Self. [facility], [address] [address], [place], [id number], [place] tel:[phone] [facility] Deficiency of other specified B group vitamins Nov-0 2 Krista Curry. [address] [facility], [place] [address], [place], [place], [address], [place]. tel:[phone] Referring Provider: Referral Self. [facility], [address] [address], [place], [id number], [place] tel:[phone] [facility] No Information Nov-0 [address]a Crury. [address] [place] [address], [address], [id number], [place]. tel:[phone] Offic/outpt E&m Estab Low-mod [facility], [address] [address], [place], [address], [place] tel:[phone] [facility] GI Symptoms or Concerns (chief complaint) Crohn's disease of small intestine without complicationsA lkaline phosphatase elevationVitam in B12 deficiency Nov-0 2 Krista Curry. [address] [place] [address], [address], [id number], [place]. tel:[phone] [facility], [address] [address], [place], [id number], [place] tel:[phone] [facility] Crohn's disease of both small and lg int w/o complications 2 Navi Ruano. [address] [facility], [address], [id number], [place]. tel:[phone] Referring Provider: Referral Self. [facility], [address] [address], [place], [id number], [place] tel:[phone] [facility] Crohn's disease of both small and lg int w/o complications 2 Jessa Ellis. [address] [facility], [address], [id number], [place]. tel:[phone] [facility], [address] [address], [place], [address], [place] tel:[phone] [facility] Crohn's disease of small intestine with other complicationAb normal levels of other serum enzymes 0 2 Jacquie Gabriel. [address], [id number], [place]. tel:[phone] Referring Provider: Referral Self. [facility], [address] [address], [place], [address], [place] tel:[phone] [facility] Crohn's disease of both small and lg int w/o complications 2 Marla Brandt. [address], [id number], [place]. tel:[phone] [facility], [address] [address], [place], [address], [place] tel:[phone] [facility] Abnormal liver enzymes 2 Rhoda Yeboah. [address], [id number], [place]. tel:[phone] [facility], [address] [address], [place], [address], [place] tel:[phone] [facility] Crohn's disease of both small and lg int w/o complications 2 Quique Moralse. [address] [facility], [address], [id number], [place]. tel:[phone] Referring Provider: Referral Self. [facility], [address] [address], [place], [address], [place] tel:[phone] [facility] Crohn's disease of small intestine with other complication 2 Jacquie Gabriel. [address] [facility], [address], [id number], [place]. tel:[phone] Referring Provider: Referral Self. Offic/outpt E&m Estab [facility], [address] [address], [place], [id number], [place] tel:[phone] [facility] B12 deficiency 2 Von VILLASEÑOR Gin. [address] [facility], [address], [id number], [place]. tel:[phone] Referring Provider: Referral Self. [facility], [address] [address], [place], [id number], [place] tel:[phone] [facility] Vitamin B12 deficiency 2 Renato Fisher. [address] [place] [address], [address], [address], [place]. tel:[phone] Offic/outpt E&m Estab Low-mod [facility], [address] [address], [place], [id number], [place] tel:[phone] [facility] GI Symptoms or Concerns (chief complaint) Crohn's disease of small intestine without complications 2 Renato Fisher. [address] [facility], [address], [id number], [place]. tel:[phone] Referring Provider: Referral Self. [facility], [address] [address], [place], [id number], [place] tel:[phone] [facility] No Information 1 John Serra. [address] [place] [address], [address], [id number], [place]. tel:[phone] Referring Provider: Referral Self. [facility], [address] [address], [place], [address], [place] tel:[phone] [facility] Crohn's disease of both small and lg int w/o complications 1 Marianna Guerrier. [address] [facility], [address], [id number], [place]. tel:[phone] Referring Provider: Referral Self. [facility], [address] [address], [place], [address], [place] tel:[phone] [facility] Crohn's disease of both small and lg int w/o complications 1 Marianna Guerrier. [address] [facility], [address], [place], [place], [address], [place]. tel:[phone] Referring Provider: Referral Self. [facility], [address] [address], [place], [id number], [place] tel:[phone] [facility] Crohn's disease of small intestine with other complication 1 Jacquie Gabriel. [address] [facility], [facility] [address], [place], [address], [place]. tel:[phone] Referring Provider: Referral Self. Established Level 4 [facility], [address] [address], [place], [id number], [place] tel:[phone] [facility] GI Symptoms or Concerns (chief complaint) Crohn's disease of small intestine with other complication 1 Jacquie Gabriel. [address] [facility] [address], [place], [id number], [place]. tel:[phone] Referring Provider: Referral Self. [facility], [address] [address], [place], [id number], [place] tel:[phone] [facility] No Information 1 Nuzhat Hurst. [address] [facility] [address], [place], [id number], [place]. tel:[phone] Offic/outpt E&m Estab Mod-hi 2 [facility], [address] [address], [place], [id number], [place] tel:[phone] [facility] GI Symptoms or Concerns (chief complaint) Crohn's disease of both small and large intestine without complication 1 Nuzhat Hurst. [address] [facility], [place], [place], [id number], [place]. tel:[phone] Referring Provider: Referral Self. [facility], [address] [address], [place], [id number], [place] tel:[phone] [facility] No Information Nov-0 1 Marianna CHARLEEN Chelsea. [address], [id number], [place]. tel:[phone] Offic/outpt E&m Estab Low-mod [facility], [address] [address], [place], [id number], [place] tel:[phone] [facility] GI Symptoms or Concerns (chief complaint) Elevated alkaline phosphatase level 1 Marianna CHARLEEN Chelsea. [address] [place] [address], [id number], [place]. tel:[phone] Referring Provider: Referral Self. [facility], [address] [address], [place], [id number], [place] tel:[phone] [facility] No Information 1 Krista Curry. [address] [place] [address], [id number], [place]. tel:[phone] [facility], [address] [address], [place], [id number], [place] tel:[phone] [facility] Crohn's disease of small intestine without complicationsI raymond deficiency anemia, unspecified iron deficiency anemia typeVitamin B12 deficiency Jun- 1 Krista Curry. [address] [place] [address], [id number], [place]. tel:[phone] [facility], [address] [address], [place], [id number], [place] tel:[phone] [facility] Crohn's disease of small intestine without complications Jun- 1 Krista Curry. [address] [place] [address], [id number], [place]. tel:[phone] Referring Provider: Referral Self. Established Level 4 [facility], [address] [address], [place], [id number], [place] tel:[phone] [facility] GI Symptoms or Concerns (chief complaint) Crohn's disease of small intestine without complicationsD iarrhea, unspecified typeAlkaline phosphatase elevation May-0 9202 1 Krista Curry. [address], [id number], [place]. tel:[phone] Referring Provider: Referral Self. [facility], [address] [address], [place], [id number], [place] tel:[phone] [facility] No Information 6-202 0 Olga Ferguson. [address] [place] [address], [id number], [place]. tel: [phone] [facility], [address] [address], [place], [address], [place] tel:[phone] [facility] Alkaline phosphatase elevation Dec- 0-202 0 Krista Curry. [address] [place] [address], [id number], [place]. tel:[phone] [facility], [address] [address], [place], [address], [place] tel:[phone] [facility] No Information 0 9 0 Krista Curry. [address] [place] [address], [id number], [place]. tel:[phone] Referring Provider: Referral Self. [facility], [address] [address], [place], [id number], [place] tel:[phone] [facility] No Information 0 8-202 0 Krista Curry. [address] [place] [address], [id number], [place]. tel: [phone] [facility], [address] [address], [place], [address], [place] tel:[phone] [facility] Abnormal levels of other serum enzymes 1-202 0 Krista Curry. [address] [place] [address], [id number], [place]. tel:[phone] Referring Provider: Referral Self. [facility], [address] [address], [place], [place], [id number], [place] tel:[phone] [place] [address] Alkaline phosphatase elevation Nov- 0-202 0 Krista Curry. [address], [id number], [place]. tel:[phone] [facility], [address] [address], [place], [place], [id number], [place] tel:[phone] [place] [address] No Information 4-202 0 Krista Curry. [address], [id number], [place]. tel:[phone] Referring Provider: Referral Self. Offic/outpt E&m Estab Mod-hi 2 [facility], [address] [address], [place], [place], [id number], [place] tel:[phone] [place] [address] GI Symptoms or Concerns (chief complaint) Crohn's disease of small intestine without complicationsD iarrhea, unspecified typeLower abdominal painCrohn's disease of small intestine with other complication 3 0 Krista Curry. [address], [id number], [place]. tel:[phone] [facility], [address] [address], [place], [place], [address], [place] tel:[phone] [place] [address] No Information 2-202 0 Olga Ferguson. [address], [id number], [place]. tel:[phone] Offic/outpt E&m Estab Mod-hi 2 [facility], [address] [address], [place], [place], [address], [place] tel:[phone] [facility] GI Symptoms or Concerns (chief complaint) Additional Narrative (chief complaint) Crohn's disease of both small and lg int w/o complicationsN onspec elev of levels of transamns & lactic acid dehydrgnse 0 No Information Referring Provider: Referral Self. [facility], [address] [address], [place], [id number], [place] tel:[phone] [facility] Crohn's disease of small intestine with other complication 0 No Information [facility], [address] [address], [place], [id number], [place] tel:[phone] [facility] Crohn's disease of small intestine with other complicationNo nspec elev of levels of transamns & lactic acid dehydrgnse 0 No Information [facility], [address] [address], [place], [address], [place] tel:[phone] [facility] Nonspec elev of levels of transamns & lactic acid dehydrgnse 0 No Information Offic/outpt E&m Estab Mod-hi 2 [facility], [address] [address], [place], [id number], [place] tel:[phone] [facility] GI Symptoms or Concerns (chief complaint) Additional Narrative (chief complaint) Nonspec elev of levels of transamns & lactic acid dehydrgnseCroh n's disease of small intestine without complications 0 No Information [facility], [address] [address], [place], [id number], [place] tel:[phone] [facility] Crohn's disease of small intestine with other complication 0 No Information [facility], [address] [address], [place], [address], [place] tel:[phone] [facility] Nonspec elev of levels of transamns & lactic acid dehydrgnse 0 No Information [facility], [address] [address], [place], [id number], [place] tel:[phone] [facility] Elevated ALT measurement 0 No Information [facility], [address] [address], [place], [address], [place] tel:[phone] [facility] GI Symptoms or Concerns (chief complaint) Additional Narrative (chief complaint) Crohn's disease of small intestine with other complicationEl evated ALT measurement 0- 0 No Information [facility], [address] [address], [place], [id number], [place] tel:[phone] [facility] Crohn's disease of both small and large intestine w abscess 0 Darren CLINIC BUSINESS MANAGER Nilsa. [address], [id number], [place]. tel:[phone] Referring Provider: Referral Self. [facility], [address] [address], [place], [id number], [place] tel:[phone] [facility] Crohn's disease of both small and large intestine w abscess 9 Darren AMOR Nilsa. [address], [id number], [place]. tel:[phone] [facility], [address] [address], [place], [id number], [place] tel:[phone] [facility] Crohn's disease of small intestine with other complication 9 Darren AMOR Nilsa. [address], [id number], [place]. tel:[phone] Referring Provider: Referral Self. Offic/outpt E&m Estab Low-mod [facility], [address] [address], [place], [id number], [place] tel:[phone] [facility] GI Symptoms or Concerns (chief complaint) Additional Narrative (chief complaint) Crohn's disease of small intestine with other complication 9 Darren CLINIC BUSINESS MANAGER Nilsa. [address], [id number], [place]. tel:[phone] [facility], [address] [address], [place], [id number], [place] tel:[phone] [facility] Crohn's disease of both small and lg int w/o complications 9 No Information [facility], [address] [address], [place], [id number], [place] tel:[phone] [facility] Crohn's disease of both small and lg int w/o complications 9 No Information [facility], [address] [address], [place], [id number], [place] tel:[phone] [facility] Crohn's disease of small intestine without complications 9 No Information Referring Provider: Referral Self. Offic/outpt E&m Estab Mod-hi 2 [facility], [address] [address], [place], [id number], [place] tel:[phone] [facility] GI Symptoms or Concerns (chief complaint) Additional Narrative (chief complaint) Crohn's disease of small intestine without complications 9 No Information Offic/outpt E&m Estab [facility], [address] [address], [place], [id number], [place] tel:[phone] [facility] GI Symptoms or Concerns (chief complaint) Additional Narrative (chief complaint) Crohn's disease of both small and large intestine w abscess 9 No Information [facility], [address] [address], [place], [id number], [place] tel:[phone] [facility] Crohn's disease of small intestine with other complication 8 Wm Cardona. [address] [facility] [address], [place], [place], [address], [place]. tel:[phone] [facility], [address] [address], [place], [id number], [place] tel:[phone] [facility] Crohn's disease of both small and lg int w/o complications 8 No Information Referring Provider: Referral Self. [facility], [address] [address], [place], [id number], [place] tel:[phone] [facility] Crohn's disease of small intestine with other complication 8 No Information Init Hosp-da E&m Mod Severity [facility], [address] [address], [place], [id number], [place] tel:[phone] [facility] No Information 8 Jluis Chanel. [address] [facility] [address], [place], [place], [address], [place]. tel:[phone] Offic/outpt E&m Estab Mod-hi 2 [facility], [address] [address], [place], [id number], [place] tel:[phone] [facility] GI Symptoms or Concerns (chief complaint) Additional Narrative (chief complaint) Crohn's disease of small intestine with other complication 8 No Information [facility], [address] [address], [place], [id number], [place] tel:[phone] [facility] Crohn's disease of small intestine without complications 8 No Information [facility], [address] [address], [place], [address], [place] tel:[phone] [facility] Crohn's disease of both small and large intestine w abscess 8 Darren Ash. [address] [facility] [address], [place], [place], [id number], [place]. tel:[phone] Offic/outpt E&m Estab Low-mod [facility], [address] [address], [place], [address], [place] tel:[phone] [facility] GI Symptoms or Concerns (chief complaint) Crohn's disease of both small and large intestine w abscess 8 Darren Ash. [address] [address], [place], [place], [id number], [place]. tel:[phone] [facility], [address] [address], [place], [address], [place] tel:[phone] [facility] Crohn's disease of both small and lg int w/o complications 8 No Information [facility], [address] [address], [place], [id number], [place] tel:[phone] [facility] Crohn's disease of small intestine without complicationsC rohn's disease of both small and lg int w/o complications 8 No Information [facility], [address] [address], [place], [id number], [place] tel:[phone] [facility] Crohn's disease of both small and lg int w/o complications 8 No Information Offic/outpt E&m Estab Mod-hi 2 [facility], [address] [address], [place], [id number], [place] tel:[phone] [facility] GI Symptoms or Concerns (chief complaint) Crohn's disease of small intestine without complications 8 No Information [facility], [address] [address], [place], [id number], [place] tel:[phone] [facility] Crohn's disease of both small and large intestine w abscess 8 No Information [facility], [address] [address], [place], [id number], [place] tel:[phone] [facility] Crohn's disease of small intestine without complications 8 No Information [facility], [address] [address], [place], [id number], [place] tel:[phone] [facility] Crohn's disease of both small and large intestine w abscess 8 Rodolfo Silver. [address] [facility] [address], [place], [place], [id number], [place]. tel:[phone] [facility], [address] [address], [place], [id number], [place] tel:[phone] [facility] Crohn's disease of both small and lg int w/o complications 8 No Information [facility], [address] [address], [place], [id number], [place] tel:[phone] [facility] Crohn's disease of small intestine without complications 0 8 No Information Offic/outpt E&m Estab Mod-hi 2 [facility], [address] [address], [place], [id number], [place] tel:[phone] [facility] GI Symptoms or Concerns (chief complaint) Crohn's disease of small intestine without complications 8 No Information Referring Provider: Referral Self. [facility], [address] [address], [place], [id number], [place] tel:[phone] [facility] Crohn's disease of both small and large intestine w abscess 7 Eric Millan. [address] [facility] [address], [place], [place], [address], [place]. tel:[phone] [facility], [address] [address], [place], [id number], [place] tel:[phone] [facility] Crohn's disease of both small and large intestine with abscess 7 No Information [facility], [address] [address], [place], [id number], [place] tel:[phone] [facility] Crohn's disease of both small and lg int w/o complications 7 No Information Offic/outpt E&m Estab Low-mod [facility], [address] [address], [place], [id number], [place] tel:[phone] [facility] GI Symptoms or Concerns (chief complaint) Crohn's disease of small intestine without complications 7 No Information Referring Provider: Referral Self. [facility], [address] [address], [place], [id number], [place] tel:[phone] [facility] Crohn's disease of both small and lg int w/o complicationsC rohn's disease of small intestine without complications 6 No Information [facility], [address] [address], [place], [address], [place] tel:[phone] [facility] Crohn's disease of small intestine without complications 6 No Information [facility], [address] [address], [place], [id number], [place] tel:[phone] [facility] Crohn's disease of both small and large intestine without complication 6 No Information Offic/outpt E&m Estab Mod-hi 2 [facility], [address] [address], [place], [id number], [place] tel:[phone] [facility] GI Symptoms or Concerns (chief complaint) Crohn's disease of both small and large intestine without complication 6 No Information Offic/outpt E&m Estab Mod-hi 2 [facility], [address] [address], [place], [id number], [place] tel:[phone] [facility] GI Symptoms or Concerns (chief complaint) Additional Narrative (chief complaint) Crohn's disease of both small and large intestine without complication 6 No Information Subsqt Hosp-da E&m Minr Compl [facility], [address] [address], [place], [id number], [place] tel:[phone] [facility] No Information 6 Benoit Dunn. [address], [id number], [place]. tel:[phone] Subsqt Hosp-da E&m Minr Compl [facility], [address] [address], [place], [id number], [place] tel:[phone] [facility] No Information 6 Benoit Dunn. [address], [id number], [place]. tel:[phone] Subsqt Hosp-da E&m Minr Compl [facility], [address] [address], [place], [id number], [place] tel:[phone] [facility] No Information 6 No Information [facility], [address] [address], [place], [id number], [place] tel:[phone] [facility] Crohn's disease of both small and large intestine with abscess 5 No Information Offic/outpt E&m Estab Mod-hi 2 [facility], [address] [address], [place], [id number], [place] tel:[phone] [facility] GI Symptoms or Concerns (chief complaint) Additional Narrative (chief complaint) Crohn's disease of both small and large intestine with abscessCrohn's disease of both small and large intestine without complication 5 No Information Subsqt Hosp-da E&m Minr Compl [facility], [address] [address], [place], [id number], [place] tel:[phone] [facility] No Information 5 Serjio Burgess. [address], [id number], [place]. [phone] Init Hosp-da E&m Mod Severity [facility], [address] [address], [place], [id number], [place] tel:[phone] [facility] No Information 5 Rodolfo Silver. [address] [facility] [address], [place], [id number], [place]. tel:[phone] [facility], [address] [address], [place], [address], [place] tel:[phone] [facility] No Information Nov-2 5 No Information [facility], [address] [address], [place], [id number], [place] tel:[phone] [facility] No Information Nov- 5 No Information [facility], [address] [address], [place], [id number], [place] tel:[phone] [facility] Crohn's IleitisCrohn's disease of small intestine without complications 5 No Information Offic/outpt E&m Estab Mod-hi 2 [facility], [address] [address], [place], [id number], [place] tel:[phone] [facility] GI Symptoms or Concerns (chief complaint) Crohn's Ileitis 5 Darren Ash. [address] [facility] [address], [place], [place], [id number], [place]. tel:[phone] Offic/outpt E&m Estab Mod-hi 2 [facility], [address] [address], [place], [id number], [place] tel:[phone] [facility] GI Symptoms or Concerns (chief complaint) Crohn's Ileitis 5 No Information Referring Provider: Referral Self. [facility], [address] [address], [place], [id number], [place] tel:[phone] [facility] Crohn's Ileitis 5 No Information [facility], [address] [address], [place], [id number], [place] tel:[phone] [facility] Crohn's Ileitis 5 No Information [facility], [address] [address], [place], [id number], [place] tel:[phone] [facility] Crohn's Ileitis 5 No Information Offic/outpt E&m Estab Mod-hi 2 [facility], [address] [address], [place], [id number], [place] tel:[phone] [facility] GI Symptoms or Concerns (chief complaint) Crohn's Ileitis 5 No Information [facility], [address] [address], [place], [id number], [place] tel:[phone] [facility] Crohn's Ileitis 5 No Information Offic/outpt E&m Estab Mod-hi 2 [facility], [address] [address], [place], [id number], [place] tel:[phone] [facility] GI Symptoms or Concerns (chief complaint) Crohn's IleitisCrohn's disease of small intestine without complications 5 No Information Referring Provider: Referral Self. Offic/outpt E&m Estab Mod-hi 2 [facility], [address] [address], [place], [id number], [place] tel:[phone] [facility] GI Symptoms or Concerns (chief complaint) Crohn's IleitisDiarrhe a 4 Rodolfo Silver. [address] [place] [address], [facility] [address], [place], [address], [place]. tel:[phone] Referring Provider: Referral Self. [facility], [address] [address], [place], [id number], [place] tel:[phone] [facility] Crohn's Ileitis 4 Rodolfo Silver. [address] [place] [address], [place], [id number], [place]. tel:[phone] [facility], [address] [address], [place], [id number], [place] tel:[phone] [facility] Abd Pain Generalized 4 No Information [facility], [address] [address], [place], [id number], [place] tel:[phone] [facility] Crohn's Ileitis 4 No Information Offic/outpt E&m Estab Mod-hi 2 [facility], [address] [address], [place], [id number], [place] tel:[phone] [facility] Crohn's IleitisFailure To Thrive Pediatrics 3 No Information Offic/outpt E&m Estab Low-mod [facility], [address] [address], [place], [id number], [place] tel:[phone] [facility] Crohns (chief complaint) Crohn's Ileitis 2 No Information Offic/outpt E&m Estab Mod-hi 2 [facility], [address] [address], [place], [id number], [place] tel:[phone] [facility] Crohns (chief complaint) Crohn's Ileitis 2 No Information [facility], [address] [address], [place] [place], [id number], [place] tel:[phone] [facility] Procedures No Information 2 No Information Offic Cons New/estab Mod [facility], [address] [address], [place], [id number], [place] tel:[phone] [facility] Diarrhea (chief complaint) Abnormal lab values (chief complaint) DiarrheaAbd Pain GeneralizedIro n Deficiency AnemiaFailure To Thrive Pediatrics 2 No Information Family History Family Member Type Diagnosis Age At Onset Half brother (P) Problem (finding) asthma Half brother (M) Problem (finding) Alive and well Half sister (P) Problem (finding) Alive and well Mother Problem (finding) Alive and well Maternal grandmother Problem (finding) Thyroid disorde r Father Problem (finding) Alive and well Half brother (P) Problem (finding) Alive and well Paternal grandfather Problem (finding) Liver Gallbladd er Disease Problem (finding) Family history of colit is Immunizations Vaccine Date Status Comments Influenza, injectable, [place] Canine Kidney, preservative free, quadrivalent administered Note: [facility] bi-direct ional interface ; Source: Other Registry Influenza, injectable, quadrivalent, MDCK, preservative and antibiotic free, 0.5 mL dosage, Flucelvax Quad administered Source: New Imm unization Record Pneumovax 23 administered Note: [facility] bi-d irectional interface ; Source: Other Registry Pneumo (2 yrs or older)(PPV) administered Source: New Immunization Record Twinrix administered Note: [facility] bi-d irectional interface ; Source: Other Registry Hep A and Hep B administered Source: New Immunization Record Twinrix administered Note: [facility] bi-d irectional interface ; Source: Other Registry Hep A and Hep B administered Source: New Immunization Record Influenza, injectable, MDCK, preservative free Flucelvax Quad Y not administered Source: New Immuniza tion Record Afluria Qd administered Note: M [facility] bi-directional interface ; Source: Other Registry Afluria Qd administered Source: New Immunization Record Pneumococcal conjugate PCV 13 administere d Source: New Immunization Record Afluria Qd administered Note: M [facility] bi-directional interface ; Source: Other Registry Afluria Qd administered Note: M [facility] bi-directional interface ; Source: Other Registry Fluzone Quad 6mo or older administered Source: New Immuniza tion Record Influenza, injectable, MDCK, preservative free Flucelvax Quad Y administered Source: Other Provid er meningococcal polysaccharide (groups A, C, Y and W-135) diphtheria toxoid conjugate vaccine (MCV4P) administered Note: [facility] bi-direct ional interface ; Source: Other Registry varicella virus vaccine administered Note : [facility] bi-directional interface ; Source: Other Registry tetanus toxoid, reduced diphtheria toxoid, and acellular pertussis vaccine, adsorbed administered Note: [facility] bi-direct ional interface ; Source: Other Registry diphtheria, tetanus toxoids and acellular pertussis vaccine administered Note: [facility] bi-direct ional interface ; Source: Other Registry measles, mumps and rubella virus vaccine administered Note: [facility] bi-direct ional interface ; Source: Other Registry varicella virus vaccine administered Note : [facility] bi-directional interface ; Source: Other Registry measles, mumps and rubella virus vaccine administered Note: [facility] bi-direct ional interface ; Source: Other Registry poliovirus vaccine, inactivated administered Note: [facility] bi-direct ional interface ; Source: Other Registry Pneumovax administered Note: [facility] bi-d irectional interface ; Source: Other Registry diphtheria, tetanus toxoids and acellular pertussis vaccine administered Note: [facility] bi-direct ional interface ; Source: Other Registry Haemophilus influenzae type b vaccine, PRP-T conjugate administered Note: [facility] bi-d irectional interface ; Source: Other Registry Energix Pediatric administered Note: [facility] bi-directional interface ; Source: Other Registry poliovirus vaccine, inactivated administered Note: [facility] bi-direct ional interface ; Source: Other Registry Pneumovax administered Note: [facility] bi-d irectional interface ; Source: Other Registry diphtheria, tetanus toxoids and acellular pertussis vaccine administered Note: [facility] bi-direct ional interface ; Source: Other Registry Haemophilus influenzae type b vaccine, HbOC conjugate administered Note: [facility] bi-di rectional interface ; Source: Other Registry Energix Pediatric administered Note: [facility] bi-directional interface ; Source: Other Registry diphtheria, tetanus toxoids and acellular pertussis vaccine administered Note: [facility] bi-direct ional interface ; Source: Other Registry poliovirus vaccine, inactivated administered Note: [facility] bi-direct ional interface ; Source: Other Registry Haemophilus influenzae type b vaccine, HbOC conjugate administered Note: [facility] bi-di rectional interface ; Source: Other Registry Pneumovax administered Note: [facility] bi-d irectional interface ; Source: Other Registry Energix Pediatric administered Note: [facility] bi-directional interface ; Source: Other Registry poliovirus vaccine, inactivated administered Note: [facility] bi-direct ional interface ; Source: Other Registry diphtheria, tetanus toxoids and acellular pertussis vaccine administered Note: [facility] bi-direct ional interface ; Source: Other Registry Pneumovax administered Note: [facility] bi-d irectional interface ; Source: Other Registry Haemophilus influenzae type b vaccine, HbOC conjugate administered Note: [facility] bi-di rectional interface ; Source: Other Registry Payers Payer name Insurance type Covered republican ID Authoriza tion(s) [employer] [place] [id number] [employer] [place] [id number] [employer] [place] [id number] [employer] [place] [id number] [employer] [place] BL [id number] [employer] [place] [id number] [employer] CI [id number] [employer] [id number] Social History Type Description Quantity Date Captured Comments Alcohol Use Details Unknown Caffeine Use Details Unknown Tobacco Use Status No Information Smoking Status No Information Sex Female Chief Complaint And Reason For Visit No Information Reason For Referral Reason For Referral No Information Plan Of Treatment Date Type Action Status Referral Ordered: referred to Oncology night sweats, cough, weight loss, dec ap Appointment date/timeframe: 04/23/2022 ordered Referral Ordered: referred to Infectious Disease night sweats, cough, weight loss, dec ap Appointment date/timeframe: 04/23/2022 ordered Referral Ordered: FibroScan With CAP Appointment date/timeframe: 02/28/2023 ordered Referral Ordered: Liver Biopsy With Ultrasound Guidance Appointment date/timeframe: 02/15/2022 ordered Referral Ordered: CT Enterography WITH Contrast Appointment date/timeframe: 01/31/2022 ordered Referral Ordered: CT Abdomen And Pelvis WITH Contrast Appointment date/timeframe: 01/02/2021 ordered Referral Ordered: Administer 2 doses of 750mg Injectafer by IV route at least 7 days apart over at least 15 minutes ordered Referral Ordered: Vit B-12 Cyanocobalamin -1000 M Appointment date/timeframe: -today ordered Referral Ordered: Iron/TIBC Appointment date/timeframe: 06/28/2020 ordered Referral Ordered: Stool Test Panel, Comprehensive Appointment date/timeframe: 07/12/2020 ordered Referral Ordered: Folic Acid Appointment date/timeframe: 06/28/2020 ordered Referral Ordered: Ferritin Appointment date/timeframe: 06/28/2020 ordered Referral Ordered: follow-up visit with Rhonda Germain MD ordered Referral Ordered: MRCP Biliary/Pancreatic Ducts WITHOUT Contrast Appointment date/timeframe: 02/23/2020 ordered Referral Ordered: Antimitochondrial Ab (AMA), Qn Appointment date/timeframe: 01/26/2020 ordered Referral Ordered: Administer Stelara 90mg/mL every 4 weeks by subcutaneous route ordered Referral Ordered: Hep B Core Ab, Tot Appointment date/timeframe: -today ordered Referral Ordered: MRCP Biliary/Pancreatic Ducts WITH Contrast Appointment date/timeframe: 04/09/2019 ordered Referral Ordered: Xray Abdomen Complete Appointment date/timeframe: 03/18/2015 ordered Referral Ordered: CBC Appointment date/timeframe: 12/23/2014 ordered Referral Ordered: MRI Enterography WITH Contrast Appointment date/timeframe: 12/23/2014 ordered Referral Ordered: follow-up visit with Marcelina Frazier MD 3 Months Appointment date/timeframe: 3 Months ordered Appointment Surekha Briseno BOOKED Appointment Surekha Briseno BOOKED Future Order: Lab Order Antimito chondrial Ab (AMA), Qn ([id number]), Body Site: Right Arm, Ordered on: Ordered Future Order: Lab Order Antimito chondrial Ab (AMA), Qn ([id number]), Body Site: Left Antecubital Fossa, Appointment on: Ordered History Of Present Illness Encounter Date Complaint History Of Prese nt Illness GI Symptoms or Concerns Surekha Briseno is a 21-year-old female who presents for followup regarding elevated alkaline phosphatase level. Please refer to prior note for further details. The patient has been managed by Dr. Velsaco for history of Crohn's ileocolitis, which was initially diagnosed in 2011. She has been maintained on 6-mercaptopurine and Entyvio. She did have surgery in 2017 for treatment of an abscess and had an ileocecectomy at that time. Dating back to 2018, the patient was found to have an elevated alkaline phosphatase level. Her other liver function tests have mostly been within normal limits until early 2021, and early 2012 when she has been found to have an elevated ALT level x2-3 ULN. Interestingly, most recent labs 05/2022 showed normal LFT's with AST 10, ALT 11, and ALK 124. She did have fractionated alkaline phosphatase in January 2020, which showed an alkaline phosphatase of 201, bone fraction of 43, intestinal fraction of 4, and liver fraction of 53. Complete serology work up of chronic liver disease negative. An MRCP was completed in February 2020, which was normal with no evidence of primary sclerosing cholangitis. A liver biopsy was completed on February 20, 2022. That showed small to intermediate sized droplet steatosis characterized by moderate 50% steatosis, no inflammatory activity and no abnormal fibrosis. The path was negative for any biliary tract disease or autoimmune hepatitis.The patient reports that she is overall feeling well. Her appetite is good and her weight has been stable. She does not have any icterus or jaundice, or pruritus. There is no known family history of liver disease. She rarely drinks alcohol. GI Symptoms or Concerns Nutritio n Assessment - New patientAnthropometric dataCBW 113.8 lbUBW 125-130 lbHospital weight 101 lbOther Supplementscalcium, vitamin D, B12 injectionsEnsure Clear (180 kcal/8 gm pro); twice daily Food/Exercise HistorySurekha shares her recent weight loss of 20 lb over a 1 month period, during this time a week long hospital stay with extensive IVF and is currently on prednisone with 2 weeks left of prescription. Overall she is feeling okay, she eats a very well balanced diet, most meals prepared from scratch, she limited highly processed foods, limits high sugary foods and beverages. She has some lactose intolerance but does use Lactaid milk. She stays hydrated. She admits high fiber foods tend to cause her GI symptoms to increase, she can handle small amounts of brown rice, regular breads/pastas, she has found which fruits/vegetables are tolerated. 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 She has been able to about 13 pounds since her hospital admission and would like to gain at least 10+ more. She has been tolerated the Ensure Clear better than the chalkier/milky versions and continues to have one twice daily.Diet Recall:B: slovak muffin w/jam, pork sausage, hard boiled egg, lactaid milk, fruitSnack: pretzels or carrots/hummus, Ensure ClearL: sandwich (ham/cheese, chx salad) or veggie chicken nuggetsSnack: Ensure ClearD: variety of protein (chicken, salmon, tilapia, turkey burger), stir bowling (carrots/zucch/chx), homemade noodles, hard boiled eggBev: water, gatorade Estimated Energy and Nutrient [id number] kcal/kg1.0-1.3 gm/kgNutrition DiagnosisInadequate energy intake related to inability to consume enough calories as evidenced by 20% wt loss in 1 monthNutrition Discussion and EducationSince she has found what foods she tolerates in reference to her Crohns and in general unable to tolerate much in the form of fiber, reinforced an overall healthy well balanced diet, continue to limit highly processed foods/high sugary foods/beverages, continue to eat regular meals and snacks; suggested additional of a healthy fat/protein with carb snacks, encouraged her to continue with nutritional supplement drink of choice (2-3x daily) for additional calories/protein to help with weight gain. In regards to fatty liver, she is clearly eating a healthy diet, stays active at work (could incorporate strength training in a few times weekly) and she actually is requiring some weight gain. Suggested adding a moderate calories to each meal/snack and/or add another supplement drink until UBW is maintained. Overall she is doing well, encouraged to reach out with any additional questions as needed.Note: patient was scheduled for a virtual visit, did not log on, contacted patient, she was unable to get link to work even after it was resent so visit continued as a televisit. GI Symptoms or Concerns Surekha Briseno is a 21-year-old female who presents for followup regarding elevated alkaline phosphatase level. The patient has been managed by Dr. Velasco for history of Crohn's ileocolitis, which was initially diagnosed in 2011. She has been maintained on 6-mercaptopurine for many years and is currently on Entyvio. She did have surgery in 2017 for treatment of an abscess and had an ileocecectomy at that time. I last saw the patient in January 2022 for the same complaint.Dating back to 2018, the patient was found to have an elevated alkaline phosphatase level. Her other liver function tests have mostly been within normal limits until recently when she has been found to have an elevated ALT level of 61 on March 25, 2022 laboratories. Her alkaline phosphatase at that time was 228. Of note, she also had low albumin of 2.2. She did have fractionated alkaline phosphatase in January 2020, which showed an alkaline phosphatase of 201, bone fraction of 43, intestinal fracti Comment The patient is a 21-year-old female who had a in-person visit today for followup of Crohn's disease. I last saw the patient in GI Clinic on January 21, 2022. She was diagnosed with Crohn's disease involving the terminal ileum in 2011. She has a history of prior perianal abscess as well. She had a prior perianal abscess approximately 2 years ago that was treated with surgical drainage. She subsequently developed another perineal abscess a couple of months ago and this was drained in the ER at [facility]. She subsequently was admitted to the hospital in March. She has had a perianal fistula and a seton was placed by the colorectal surgeon. She thinks was Dr. Arvizu who placed the seton. The patient had a colposcopy on March 30 in the hospital. This showed an ulceration at the ileocolonic anastomosis and inflammation throughout the colon. Biopsies revealed mild inflammation throughout the colon. She was started on IV steroids in the hospital and is currently on a pre GI Symptoms or Concerns Surekha Briseno is a 21-year-old female who presents for followup regarding elevated alkaline phosphatase level. The patient has been managed by Dr. Velasco for history of Crohn's ileocolitis, which was initially diagnosed in 2011. She was started on Stelara in 2017 and remains on that medication at this time. She has also been maintained on 6-mercaptopurine for many years. She did have surgery in 2016 for treatment of an abscess and had an ileocecectomy at that time. I last saw the patient in July 2020 for the same complaint.Dating back to 2018, the patient was found to have an elevated alkaline phosphatase level. Her other liver function tests have been within normal limits. Most recent blood work on January 24 showed an alkaline phosphatase of 174. She did have a fractionated alkaline phosphatase in January 2020 which showed an alkaline phosphatase of 201, bone fraction of 43, intestinal fraction of 4, and liver fraction of 53. She has previously been tested for a GI Symptoms or Concerns The kalina cervantes is a 21-year-old female who had an in-person visit today for followup of Crohn's ileitis diagnosed in 2011. I last saw the patient on November 18 of this year. She had been on prior Pentasa, Remicade, Humira, mercaptopurine and Stelara and eventually switched to Entyvio and mercaptopurine 50 mg daily. She had an MR enterography in November that revealed moderate to severe inflammation involving 30 cm of terminal ileum, not significantly changed in her prior scan. We started the process to increase the Entyvio to 300 mg every 4 weeks, but her insurance would only want us increase it to 300 mg every 6 weeks. This was approved on January 08. She has not yet received the every 6-week dosing interval. She is due for this as soon as possible. I reviewed her laboratories from November 21. These were significant for a low vitamin B12 and a low vitamin D. On December 30, she developed some perianal pain and went to the ER, was found to have a perianal abscess that was GI Symptoms or Concerns Surekha Briseno is a 21-year-old female who presented today for teaching on her vitamin B12 injections. The patient has a history of Crohn's ileitis that was diagnosed in 2011, and is a patient of Dr. Velasco. The patient is currently on Entyvio and mercaptopurine 50 mg daily. The patient reports that her last vitamin B was low and this was due to a lapse in her prescription refill. Vitamin B12 from 04/11/2021 was 199, from 11/21/2021 level was 141. The patient has been prescribed to restart on vitamin B12 injection replacements at 1 ml intramuscular weekly x4 and then switching to monthly after that. GI Symptoms or Concerns The kalina cervantes is a 21-year-old female who had an in-person visit today for followup of Crohn's ileitis diagnosed in 2011. She had been on prior Pentasa and Remicade, Humira and 6-MP and Stelara. She continued to have active inflammation on her most recent CT scan in December 2020, which showed approximately 30 cm of joseluis TI inflammation. She was eventually switched to Entyvio and mercaptopurine 50 mg daily. She is currently on those treatments now. She does have a history of an ileocecectomy in the past. She was last seen in GI Clinic by Dr. Gross in March of this year and was doing overall well. She reports overall she has continued to do well. She reports that she had a couple of days about a month ago where she thinks she had food poisoning and had 2 days of diarrhea and rectal bleeding, but this subsequently resolved and now she is feeling back to normal. She denies any current diarrhea or abdominal pain or rectal bleeding or nausea. She reports 3 formed bowel movements per day. 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 She was seen in Liver Clinic for elevated alkaline phosphatase, but has not followed up with them. GI Symptoms or Concerns GI Symptoms or Concerns Ms. Eri masters presents for followup of her ileal Crohn's disease that was diagnosed in 2011. Off therapy, she had a flare of her Crohn's and was started on Entyvio and mercaptopurine a few months ago. She reports that this combination has been working very well for her. She typically has 2 stools daily. Her abdomen feels much less active and is only a little bit uncomfortable. This discomfort tends to go away after she has a stool in the evening. She also feels less bloated. She has changed her diet and is eating less red meat and fewer foods that have seeds. She does not have to get up in the middle of the night to have a bowel movement. She is having no fevers or night sweats. Associated with the 1st Entyvio infusion, she had some upper respiratory or cold-type symptoms. This has not happened again. She also has restarted taking vitamin B12 monthly. GI Symptoms or Concerns This is a 20-year-old female with a significant flare of Crohn's ileitis that she has had since February 2012 with previous ileal cecal resection in 2017 for abscess. She was seen in clinic last week after being off Stelara for 9 months, was having a severe flare requiring prednisone. We have been trying to get her back on Stelara, but in review even when she was on the Stelara every 4 weeks, she was having significant symptoms and the Stelara was only lasting about 2 weeks. Initially when she started Stelara back in 2018, it was working well, but it lost effectiveness over time and she bumped up the timing of the dose a few times. Recently, she has had nausea, vomiting, and diarrhea 6 times a day or more plus nocturnal stooling and about 10 pounds weight loss. She comes in to discuss options.In the past, she has been on Pentasa, Remicade worked for a few years and then stopped, Humira worked for a few years, but eventually stopped after increasing doses. The 6-MP was mell GI Symptoms or Concerns Surekha Briseno is a 19-year-old female who presents to clinic for evaluation of diarrhea and vomiting.Surekha has had a 1 week history of vomiting and diarrhea. She is having approximately 2-3 episodes of vomiting and at least 6 diarrhea episodes daily. She has had nocturnal fecal incontinence episodes for the past three nights. Associated symptoms include headache, fatigue, right sided abdominal pain, and hot/cold flashes. She has been following a bland diet and trying to stay hydrated, however will often vomit within a hour of eating. She reports her symptoms feel similar to when she has had a Crohn's flare in the past. She denies fevers, joint pain, rash, or blood in the stool. She has no recent sick contacts.The patient has been followed by Dr. Velasco for a history of Crohn's disease. She was initially diagnosed with Crohn's ileitis in 2011. She was previously followed by [facility]. She was started on Stelara in 2017, however stopped taking in March 2020 due to changes in her insurance. She did have surgery in 2016 for treatment of an abscess and had an ileocecectomy. MR enterography in December 2019 revealed [id number] Crohn's disease involving 30 cm of the terminal ileum. GI Symptoms or Concerns Surekha Briseno is a 19-year-old female who presents to clinic for consultation regarding elevated alkaline phosphatase. The patient is managed by Dr. Velasco for a history of Crohn's disease. She was initially diagnosed with Crohn's ileitis in 2011. She was previously followed by [facility]. She was started on Stelara in 2017 and remains on that medication at this time. She did have surgery in 2016 for treatment of an abscess and had an ileocecectomy. MR enterography in December 2019 revealed [id number] Crohn's disease involving 30 cm of the terminal ileum.Dating back to 2018, the patient was found to have an elevated alkaline phosphatase level. Her other liver function tests are within normal limits. Most recent blood work on June 28 showed an alkaline phosphatase of 146. Upper limit of normal is 116. She did have a fractionated alkaline phosphatase in January 2020, which showed an alkaline phosphatase of 201, bone fraction of 43, intestinal fraction of 4, GI Symptoms or Concerns The kalina ent is a 19-year-old female who had a virtual visit performed today for followup of Crohn's ileitis diagnosed in 2011. Patient was previously followed by Dr. Ronnell Frazier in Pediatrics. I last saw her on January 18, 2020. She has been on prior Pentasa and Remicade and Humira and mercaptopurine. She had surgery in 2016 for an abscess and had an ileocecectomy. She was switched to Stelara after hospitalization in 2017. She had an MR enterography in December that revealed [id number] Crohn's disease involving 30 cm of the terminal ileum. At our last GI visit in January, we decided to increase her Stelara to every 4 weeks. She reports she has overall been doing Stelara every 4 weeks, but did miss one dose due to some coverage issues with her mother's insurance. She reports her mother is currently paying around $7000 out of pocket for the monthly Stelara. It appears our biologic counselors are working on this issue. I reviewed her labs from January 17. She had a hem GI Symptoms or Concerns The kalina ent is a 19-year-old female who had an in-person visit today for followup of Crohn's ileitis diagnosed in 2011. The patient has previously been followed by Dr. Marcelina Frazier in our pediatric GI clinic. She was last seen by Dr. Frazier on November 30, 2019. The patient was diagnosed with Crohn's ileitis in 2011. She has been on prior Pentasa and budesonide and Remicade and Humira. She was switched to Stelara after hospitalization in January 2018. She did have surgery in March 2016 for an abscess and had an ileocecectomy at that time. She was also on prior mercaptopurine. Her Stelara was increased to every 6 weeks in May 2019. She reports that she has not really noticed much of an improvement after switching to every 6-week frequency dosing of Stelara. The patient reports that she typically has 6 to 7 bowel movements per day, which are typically watery to loose. She reports intermittent lower abdominal cramping. She reports rare blood in her stool. She reports Additional Narrative 1. Diagnosis: diagnosed with terminal ileal Crohns in 2011 after presenting with abdominal pain, weight loss and diarrhea and poor growth.2. Treatment:--2011: Pentasa and budesonide--01/2013: remicade started due to increased symptoms--01/2014: increased frequency of remicade to q4 weeks and 10/kg--09/2014: ongoing symptoms, low ifx level and increased ab so changed to humira--11/2015: hospitalized with increased TI disease and humira moved to qweek--03/2016: hospitalized with abscess, abx and ileocecectomy, continued humira--2017: increased ab's to humira so 6MP added at 25 mg--05/2017: continued humira but increased 6MP to 50 mg due to flare requiring hospitalization (low Ca/low Mg)--08/2017: reinduced Humira stayed at qweek--01/2018 started Stellara after hospitalization for perianal abscess with poorly controlled disease. She was at every 8 weeks, but with breakthrough symptoms, increased to every 6 weeks on . Procedure hx--EGD/colonoscopy at diagnosis in 2011--ileocecectomy 03/2016--drainage of perianal abscess with seton placement ([facility]) 01/2018)4. 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 Healthcare:--elevated transaminases associated with hospitalization in 08/2017--normalized--again elevated early 2019.--02/2016: negative quantiferon--10/2015: negative Hep B--02/02-Elevated transaminases--started to decrease at the beginning of Apr 2019--TPMT 01/2013 normal--recurrent cold sore started prophylactic valtrex 04/2019 GI Symptoms or Concerns Surekha is unaccompanied today. She is a 19-year-old, seen for followup of Crohn''s disease. Her last office visit was in April. At that time, we discussed increasing her Stelara to every 6 weeks. She had been having a low-grade chronic flare with occasional increases in symptoms at that time. Since increasing her Stelara to every 6 weeks, she feels that things are overall better. She still has occasional stomach cramping. This is across her upper abdomen. She is stooling about 3 to 4 times daily. She is waking once at night to stool. Stools are loose. She has tried cleaning up her diet thinking that this may help. Unfortunately, it has not changed her stooling. Her weight has been stable at 119 pounds. She is otherwise well. She is making it to work daily. She works at [employer] as well as [employer].She has a history of chronic recurrent oral herpes. She was on Valtrex intermittently for several months. She has been off of this for the last month or so, and her symptoms hav GI Symptoms or Concerns Surekha is unaccompanied today. She is an 18-year-old, seen for followup of Crohn's disease. She was last seen in the office about 1 month ago. We have been following closely as her disease seems poorly controlled as suggested by right lower quadrant tenderness on exam in March and an MRI in February showing inflammation at her anastomotic site. We had proposed increasing her Stelara to every 6 weeks. Her insurance company is asking for a Stelara trough level before considering this dose change. We are thus waiting till her next dose is due in May to obtain this level.Additionally, her transaminases have been elevated at least to some degree since December 2018 when her ALT was 108. It peaked in March at 300 and at the end of March it was down to 215. Other laboratory studies included a negative hepatitis B and C. Her total IgG level is only mildly elevated at 1701. LKM antibody is 1.1. Her EBV titers showed previous disease. CMV was negative. Ceruloplasmin was 36. Additional Narrative 1. Diagnosis: diagnosed with terminal ileal Crohns in 2011 after presenting with abdominal pain, weight loss and diarrhea and poor growth.2. Treatment:--2011: Pentasa and budesonide--01/2013: remicade started due to increased symptoms--01/2014: increased frequency of remicade to q4 weeks and 10/kg--09/2014: ongoing symptoms, low ifx level and increased ab so changed to humira--11/2015: hospitalized with increased TI disease and humira moved to qweek--03/2016: hospitalized with abscess, abx and ileocecectomy, continued humira--2016: increased ab's to humira so 6MP added at 25 mg--05/2017: continued humira but increased 6MP to 50 mg due to flare requiring hospitalization (low Ca/low Mg)--08/2017: reinduced Humira stayed at qweek--01/2018 started Stellara after hospitalization for perianal abscess with poorly controlled disease. Currently at every 8 weeks injection3. Procedure hx--EGD/colonoscopy at diagnosis in 2011--ileocecectomy 03/2016--drainage of perianal abscess with seton placement ([facility]) 01/2018)4. Imaging:--MRE 08/2017 with long segment terminal ileal inflammation--03/0411-UAM-qnxugbhph inflammation at the anastamotic site5. Healthcare:--elevated transaminases associated with hospitalization in 08/2017--normalized--02/2016: negative quantiferon--10/2015: negative Hep B--02/02-Elevated transaminases--started to decrease at the beginning of Apr 2019--TPMT 01/2013 normal--recurrent cold sore started prophylactic valtrex 04/2019 Additional Narrative 1. Diagnosis: diagnosed with terminal ileal Crohns in 2011 after presenting with abdominal pain, weight loss and diarrhea and poor growth.2. Treatment:2011: Pentasa and qjskpuizsl94/2013: remicade started due to increased gkbrelgv46/2014: increased frequency of remicade to q4 weeks and 10/kg09/2014: ongoing symptoms, low ifx level and increased ab so changed to humira11/2015: hospitalized with increased TI disease and humira moved to qweek03/2016: hospitalized with abscess, abx and ileocecectomy, continued [id number]: increased ab's to humira so 6MP added at 25 mg05/2017: continued humira but increased 6MP to 50 mg due to flare requiring hospitalization (low Ca/low Mg)08/2017: reinduced Humira stayed at qweek01/2018 started Stellara after hospitalization for perianal abscess with poorly controlled disease3. Procedure hxEGD/colonoscopy at diagnosis in 2011ileocecectomy 03/2016drainage of perianal abscess with seton placement ([facility]) 01/2018)4. 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 Healthcare:elevated transaminases associated with hospitalization in 08/2017--hoytgfsvbo37/2016: negative quantiferon10/2015: negative Hep B104/04-Elevated transaminasesTPMT 01/2013 normal GI Symptoms or Concerns Surekha is unaccompanied to the office today, though mother attends the visit by speakerphone. She is an 18 year old with Crohns Disease seen for follow up of MRE with inflammation and with recently noted elevated transaminases. She reports feeling quite well. There is no abdominal pain. She is stooling three times daily without blood. She denies joint pain, mouth sores or perianal pain. She has a perianal tract from a previous seton but there is no pain or drainage from that site. There is no nausea. Her energy level is good. She is currently working two jobs ([employer] and [employer]). She is planning on attending [employer] in the Fall to get her generals and then plans on applying to college to study nursing. GI Symptoms or Concerns Surekha is an 18-year-old, who presents alone to clinic today. She is here today for followup regarding her Crohn's diagnosis.Surekha is followed through this clinic for her Crohn's diagnosis typically by Dr. Frazier. She is here today for followup. She is currently on Stelara every 8 weeks for management of her disease. She has been doing relatively well since she started this a year ago. Her laboratory screenings more recently have shown elevated transaminases. This is continuing to be trended and there has been some decrease in the ALT over time. She denies any significant abdominal pain, although on exam today, she has some tenderness in her lower quadrants. She is stooling twice a day and is typically diarrhea, which is her normal. She denies any blood in her stool. She will often wake at least one time at night to pass stool. Her growth has been stable. She is taking a gap year between high school and college to work at [employer]. She denies any reflux, nausea, or vomi Additional Narrative 1. Diagnosis: diagnosed with terminal ileal Crohns in 2011 after presenting with abdominal pain, weight loss and diarrhea and poor growth.2. Treatment:2011: Pentasa and symiidxhvl23/2013: remicade started due to increased nzwhdajj87/2014: increased frequency of remicade to q4 weeks and 10/kg09/2014: ongoing symptoms, low ifx level and increased ab so changed to humira11/2015: hospitalized with increased TI disease and humira moved to qweek03/2016: hospitalized with abscess, abx and ileocecectomy, continued [id number]: increased ab's to humira so 6MP added at 25 mg05/2017: continued humira but increased 6MP to 50 mg due to flare requiring hospitalization (low Ca/low Mg)08/2017: reinduced Humira stayed at qweek01/2018 started Stellara after hospitalization for perianal abscess with poorly controlled disease3. Procedure hxEGD/colonoscopy at diagnosis in 2011ileocecectomy 03/2016drainage of perianal abscess with seton placement ([facility]) 01/2018)4. Imaging:MRE 08/2017 with long segment terminal ileal issoqxujdsto25/19-MRE-5. Healthcare:elevated transaminases associated with hospitalization in 08/2017--bzlaqmlpdr62/2016: negative quantiferon10/2015: negative Hep B104/04-Elevated transaminases GI Symptoms or Concerns Surekha is accompanied by her mother. She is a 17-year-old, seen for follow up of ileal Crohn's disease. She was last seen in the office in December, but had a subsequent hospitalization in January. At that time, she was noted to have quite active disease with perianal disease requiring drainage of a perianal abscess and seton placement. She was subsequently switched from Humira to Stelara. She tells me that she feels much better on the Stelara. She did not realize how ill she felt on chronic basis prior to initiating the Stelara. She offers no complaints today. She denies abdominal pain, diarrhea, or perianal pain. She tells me that her seton was removed 3 to 4 weeks ago, and she has had no recurrence of her abscess. She is paying more attention to her diet and is eating healthier foods with less fast food and less sugar. She offers no complaints today. Additional Narrative 1. Diagnosis: diagnosed with terminal ileal Crohns in 2011 after presenting with abdominal pain, weight loss and diarrhea and poor growth.2. Treatment:2011: Pentasa and fjdykbixxy35/2013: remicade started due to increased zjafsrek09/2014: increased frequency of remicade to q4 weeks and 10/kg09/2014: ongoing symptoms, low ifx level and increased ab so changed to humira11/2015: hospitalized with increased TI disease and humira moved to qweek03/2016: hospitalized with abscess, abx and ileocecectomy, continued [id number]: increased ab's to humira so 6MP added at 25 mg05/2017: continued humira but increased 6MP to 50 mg due to flare requiring hospitalization (low Ca/low Mg)08/2017: reinduced Humira stayed at qweek01/2018 started Stellara after hospitalization for perianal abscess with poorly controlled disease3. Procedure hxEGD/colonoscopy at diagnosis in 2011ileocecectomy 03/2016drainage of perianal abscess with seton placement ([facility]) 01/2018)4. Imaging:last MRE 08/2017 with long segment terminal ileal inflammation5. Healthcare:elevated transaminases associated with hospitalization in 08/2017--xcirkepouz34/2016: negative quantiferon10/2015: negative Hep B GI Symptoms or Concerns Additional Narrative Surekha is here today accompanied by her mother for instruction on the Stelara injections. She received her initial infusion 8 weeks ago. They report that she is asymptomatic at this time since receiving the infusions. Surekha has been on Humira previous for her IBD so she feels comfortable with injections. The step by strep process was both discussed and demonstrated today in detail. The patient was able to administer the injection without difficulty.She was monitored in clinic for 15 minutes following injection without difficulty.The patient and mother are aware she is due for her maintenance dose every 8 weeks. Suggested setting a calander reminder as it may be easy to forget given the length in between injections. She will follow the lab protocol for Stelara. Suggested follow up with Dr. Frazier in 2-3 months. Additional Narrative 1. Diagnosi s: diagnosed with terminal ileal Crohns in 2011 after presenting with abdominal pain, weight loss and diarrhea and poor growth.2. Treatment:2011: Pentasa and ezwisikszs38/2013: remicade started due to increased veujnzxc39/2014: increased frequency of remicade to q4 weeks and 10/kg09/2014: ongoing symptoms, low ifx level and increased ab so changed to humira11/2015: hospitalized with increased TI disease and humira moved to qweek03/2016: hospitalized with abscess, abx and ileocecectomy, continued [id number]: increased ab's to humira so 6MP added at 25 mg05/2017: continued humira but increased 6MP to 50 mg due to flare requiring hospitalization (low Ca/low Mg)08/2017: reinduced Humira stayed at qweek3. Procedure hxEGD/colonoscopy at diagnosis in 2011ilececectomy 03/20164. Imaging:last MRE 08/2017 with long segment terminal ileal inflammation5. Healthcare:elevated transaminases associated with hospitalization in 08/2017--qaftqsazwz14/2016: negative quantiferon10/2015: negative Hep B GI Symptoms or Concerns Surekha is accompanied by her mother. She is a 17 year old see for follow up of ileal Crohns Disease. She tells me that she is currently feeling well, but had abdominal and perianal pain about 3-4 weeks ago. She was started on hydrocortisone supps at that time which she feels helped. She is stooling 4-5 times daily with one of those often being nocturnal. She is frequently seeing blood in her stool. After her Humira was reinduced over the summer, she felt that she improved. She gained good weight but still has frequent stooling. She remains on weekly Humira. There have been issues with compliance in the past, but she feels that she is doing better with regards to this at the present time.She denies fevers, joint pain, or mouth sores. There is no vomiting. She and her mother feel she is eating fairly well. GI Symptoms or Concerns Surekha is a 16-year-old accompanied to clinic today by her mother. She is here today for a followup regarding her Crohn's disease diagnosis.Surekha is followed by Dr. Frazier for her Crohn's disease. It was diagnosed initially in 2011 with predominantly ileal disease. She also had gastritis and duodenitis. She was put on Remicade in 2013 due to increased symptoms. She had acceleration of symptoms in 2014 and was switched to Humira. At that point, she had active terminal ileal disease and developed an intraabdominal abscess and underwent an ileal cecectomy in March of 2015. Her last visit was in June of 2017. There was some question about compliance with Humira. She has been in a flare with abdominal pain, cramping, and diarrhea for several months. She had lost quite a bit of weight as well starting in February 2017. She was restarted on Entocort and she had elevated antibodies to Humira and her Humira level was quite low. She was started on 6-MP at 25 mg daily and thi GI Symptoms or Concerns Surekha is accompanied by her mother. She is a 16-year-old, seen for followup of Crohn's disease. Surekha was diagnosed with Crohn's disease in 2011 with predominantly ileal disease. There was also gastritis and duodenitis. She was started on Remicade in 2013 due to increased symptoms. With accelerating symptoms in 2014, she was switched to Humira. At that point, her terminal ileal disease remained quite active, she developed an intra-abdominal abscess and underwent ileocecectomy in March 2015. At the time of her last visit in March, mother wondered if Surekha was compliant with her Humira injections. She had developed a flare characterized by abdominal pain, cramping, and diarrhea several months prior to that visit. She was started on Entocort, but did not continue taking this. At the time of our last visit, she had lost about 10 pounds. We restarted the Entocort and checked Humira levels and antibodies. Her antibodies were elevated and her Humira level was low. She was GI Symptoms or Concerns Surekha is accompanied by her mother. She is a 16-year-old, seen for followup of Crohn's disease. Surekha was diagnosed with Crohn's disease in 2011 with predominantly terminal ileal disease. There was also some gastritis and duodenitis. She was started on Remicade in 2013 due to increased symptoms. She continued to have symptoms intermittently particularly in 2014 when she was switched to Humira. At that point, her terminal ileal disease remained quite active based on symptoms, laboratory studies, and she ultimately developed an intra-abdominal abscess and underwent ileocecal checked me in March 2015. She is supposed to be on Humira 40 mg every other week. She does these injections herself and notes that she has only missed one injection. However, mother is not so sure that she remembers her injections on time or at all at some points. This past fall, Surekha developed flare symptoms including abdominal cramping and diarrhea. She was started on Entocort 9 mg daily and was GI Symptoms or Concerns Surekha is accompanied by her mother. She is a 15-year-old seen for followup of Crohn's disease. Surekha was diagnosed with Crohn's disease in 2011. At that time, she had predominantly terminal ileal disease, but also had gastritis and duodenitis. Due to increasing symptoms at the beginning of 2013, she was started on Remicade. Her disease persisted intermittently symptomatic throughout 2014. She was switched to Humira in the summer of 2014 as her terminal ileal disease remained active based on symptoms and laboratory studies showing a persistently elevated sedimentation rate and CRP. Her albumin was also chronically low. She ultimately developed intra-abdominal abscess formation and underwent ileocecectomy in March of 2015. She has done well since her surgery. She continues on Humira 40 mg every two weeks.She currently offers no complaints. She has started doing her Humira by herself. She has only rarely done her injection late. She has not noticed any changes in her s GI Symptoms or Concerns Surekha is accompanied by her mother. She is a 14-year-old seen for followup of Crohn's disease. She was last seen in the office in April. She is currently on Humira taking 40 mg every two weeks. She reports feeling very well. She denies abdominal pain, diarrhea, constipation, vomiting, or loud stomach noises. Her energy level is good. She has just finished school for the year. She does not have any specific summer plans.Rosenda Crohn's disease was diagnosed in late 2011 with predominantly terminal ileal disease. She also had gastritis and duodenitis. Due to increasing symptoms at the beginning of 2013, she was started on Remicade. Her disease persisted intermittently symptomatic through 2014. She was subsequently switched to Humira in the summer of 2014 due to ongoing terminal ileal disease. She was hospitalized in March of 2015 with abscess formation at the terminal ileum, which required drain and subsequently ileocecectomy. She has been doing quite well since he Additional Narrative Crohn's dis ease was diagnosed in late 2011. She was noted to have predominantly terminal ileal disease, but also gastritis and duodenitis with some blunting of villi. She was started on Pentasa and budesonide initially. With an increase in symptoms at the beginning of 2013, she was started on Remicade. She did well for about the first six months on Remicade. MRE showed long segment TI disease at the end of 2013. It appears the Remicade was stopped and she went back on Pentasa and budesonide. Due to ongoing issues in early 2014, Remicade was restarted at a dose of 10 mg per kg monthly. Due to poor response, she was switched to Humira in Summer 2014. She was hospitalized in March 2015 with abscess which required draining and subsequent ileocecectomy GI Symptoms or Concerns Surekha is accompanied by her mother. She is a 14-year-old seen for followup of ileocecal Crohn's disease. Surekha was hospitalized last month with her disease. She required drainage of an abscess and subsequent ileocecectomy. She has done well in the postop period. She has restarted her Humira. Her current dosing is 40 mg every two weeks. She will be due again for this tomorrow. She reports feeling well. She denies fevers, vomiting, or diarrhea. There is no abdominal pain. She is eating well and sleeping well. She is back to school on a regular basis and is almost caught up in her classes. GI Symptoms or Concerns Surekha is accompanied by her mother. She is a 14-year-old seen for followup of Crohn's disease. She was hospitalized last week due to a flare of her disease. She comes in today on 60 mg of prednisone daily as well as a low-residue diet. There was a question of whether her Humira should be changed to weekly. She continues to have some fatigue. She has, however, returned to school. Her abdominal pain has decreased. Her appetite is fairly low, though she has also frustrated by the low-residue diet and is not finding foods that she would care to eat. Mother reports that Surekha feels less well if she eats sugary foods, thus Surekha is on a low-sugar diet as well. Additional Narrative Crohn's dis ease was diagnosed in late 2011. She was noted to have predominantly terminal ileal disease, but also gastritis and duodenitis with some blunting of villi. She was started on Pentasa and budesonide initially. With an increase in symptoms at the beginning of 2013, she was started on Remicade. She did well for about the first six months on Remicade. MRE showed long segment TI disease at the end of 2013. It appears the Remicade was stopped and she went back on Pentasa and budesonide. Due to ongoing issues in early 2014, Remicade was restarted at a dose of 10 mg per kg monthly. Due to poor response, she was switched to Humira in Summer 2014. She was hospitalized with flare of disease presenting with abdominal pain and fatigue. Humira was increased to weekly and she was started on a tapering course of steroid. GI Symptoms or Concerns Surekha is a 14-year-old accompanied to clinic today by her parents. She is here today for Humira teaching. She is a patient of Dr. Garces.Surekha was maintained on Remicade for a short period of time to treat her Crohn's disease. There is ongoing disease seen on MRI study despite Remicade; therefore, she was switched to Humira. Surekha continues on Pentasa and Entocort as well. GI Symptoms or Concerns Surekha is accompanied by her mother. She is a 13-year-old seen for followup of terminal ileal Crohn's disease. Crohn's disease was diagnosed in 2011. She was last seen for followup in the office in June. She has been on Remicade in the past. Last fall, she had an MR enterography, which showed an increase or persistent terminal ileal disease. It appears that the Remicade was stopped and budesonide and Pentasa were started. She had ongoing symptoms despite this and Remicade was restarted in March. She is on a monthly Remicade at the present time. Her last infusion was yesterday. Surekha reports feeling overall well. She denies abdominal pain, diarrhea, or constipation. She is eating well. Mother feels that she is not as energetic as she has been in the distant past. Her other current medications include Pentasa 1 g twice daily. She remains on iron 65 mg once daily and budesonide 9 mg daily. Laboratory studies done at her infusion yesterday showed her hemoglobin to be improv GI Symptoms or Concerns Surekha is accompanied by her mother. She is a 13-year-old seen for followup of Crohn's disease. Surekha is known to have terminal ileal Crohn's disease. She has been on Remicade in the past. Last fall, she had an MR enterography and apparently the Remicade was stopped and budesonide and Pentasa were started. She had ongoing symptoms despite this change. We restarted Remicade in March. Surekha herself reports feeling well at the present time. She denies abdominal pain. She tells me her energy level is good. Her mother reports that after each Remicade infusion Surekha will be well for a couple of weeks and then starts having increased problems. She will develop abdominal pain and fullness. She will occasionally try to force herself to vomit to relieve the discomfort. Her last Remicade infusion was on June 22. At that time, laboratory studies were done. Her CRP was 14.6. Her sedimentation rate was 70. Her hemoglobin was 7.9. Labs prior to that showed hemoglobin of 9.3, sedim GI Symptoms or Concerns Surekha is accompanied by her mother. She is a 13-year-old with a history of Crohn's disease seen for followup. Crohn's disease was diagnosed in late 2011. She was noted to have mostly terminal ileal disease. She was started on Pentasa initially. Last year with an increase in symptoms, she was started on Remicade. She did well for about the first six months on Remicade. Late last fall, she started to have an increase in symptoms. She was seen for followup and an MRI enterography was obtained. This showed a long segment of terminal ileal inflammation. Mother reports that she was told to stop the Remicade and restart budesonide and Pentasa. She is currently taking Pentasa 1 g twice daily as well as 9 mg of Entocort once daily. She has fairly persistent lower abdominal pain. It has not improved with these changes. She is not having any fevers or back pain. There is no diarrhea. She is eating well. She is making to school most days. She has missed some, but is able to keep up for GI Symptoms or Concerns I had th e pleasure of seeing Surekha for followup. She has previously been seen by my partner, Dr. Givens. She has Crohn's ileitis, diagnosed in November of 2011. She has been on Remicade every eight weeks. Her last dose was on January 05, approximately two weeks late. She comes in with her father because she is having increased symptoms. Since Friday, she has developed vomiting and then increased diarrhea on Friday. Sometimes it has even her hurt to walk on occasion. She has stools every day to two times per day and sometimes gets up overnight. Her abdominal pain can be generalized, but also in the right lower and left lower quadrants. She reports that this is similar to previous flares of disease. Also, eating seems to bring on the pain. It seems that she is minimizing the amount of intake because of symptoms. She has been off of meds other than Remicade for the last six to seven months. She denies any current fevers, oral ulcers, or rash. She is having gradual weight lo Functional Status Date Functional Assessmen t No Information Instructions Date Instruction Additional Infor romel Nice to meet with jag centeno today.1. Continue to eat a well balanced diet, rich in quality protein sources, suggest addition of a healthy fat/protein with your snacks, adding extra calories in at each meal/snack to help with weight gain.2. Continue supplementing your diet with Ensure Clear (or other) 2-3x daily to help with weight gain.3. Should any additional questions or concerns arise, please reach out through patient coordinator (Karina at [phone] ext [phone]) or schedule a follow up visit if needed. Related to Weight loss -Patient has follow- up in [facility] scheduled for next month Related to Fatty liver disease, nonalcoholic -Has follow-up sched uled with colorectal surgeon tomorrow Related to Perianal Crohn's disease, with fistula -Labs as orderedCont inue entyvio 300 mg IV every 6 weeks (has only received 1 dose at 6 week interval)-Continue 6MP 50 mg daily-Continue prednisone taper to off (will be done in approximately 6 weeks)-Consider repeat abdominal imaging in 4-6 months, or sooner if having recurrence of significant GI symptoms-Low residue/low fiber diet-Avoid NSAIDs-Calcium and vitamin D-Continue vitamin B12 [id number]-[id number] in 3 months Related to Crohn's disease of small intestine without complication -Boost or ensure 2-3 times daily-[employer] 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 Related to Low serum albumin -Start omeprazole 40 mg daily to see if this helps Related to Nausea and vomiting in adult -Schedule entyvio in next available slot and then every 6 weeks thereafter-Continue 6MP 50 mg daily-Start budesonide taper for treatment of GI symptoms and active ileitis seen on 11/2021 MRE-CT enterography [id number] to check for partial bowel obstruction-If CTE does not show bowel obstruction, then can start miralax once daily and adjust miralax dose and/or frequency as needed-Flu shot today-Avoid NSAIDs-Calcium and vitamin D-Continue iron sulfate-Continue vitamin B12 [id number]-[id number] in 3 months Related to Crohn's disease of small intestine without complications -Follow-up in Liver Clinic for further evaluation of elevated alk phos - appointment scheduled on 01/29/22 Related to Alkaline phosphatase elevation 1. Vitamin D replace ment as prescribed: weekly x 4 doses and then monthly injections. 2. Follow-up with Dr. Velasco as recommended for your Crohn's. 3. Please call with any questions or concerns. Please feel free to reach me through the patient portal or call my patient rn home care at [phone] and then Lucia at RAD. [phone]. Thank you for trusting me with your healthcare! Related to Vitamin B12 deficiency -Follow-up in Liver Clinic for further evaluation of elevated alk phos Related to Alkaline phosphatase elevation -Labs as ordered-Con tinue entyvio 300 mg IV every 8 weeks and 6MP 50 mg daily-Avoid NSAIDs-Calcium and vitamin D-Continue iron sulfate-MR enterography to reassess Crohn's disease [id number]-[id number] in 3 months Related to Crohn's disease of small intestine without complications We discussed restart ing Stelara plus combination therapy to help antibody formation versus switching to an alternate biologic. Options for Crohn's treatment or Cimzia or Entyvio, but I think we should try a new class. We talked about risks and benefits of Entyvio. It may not be as good for penetrating disease, but we have to try to get her disease under control. She is currently on prednisone, but would add combination therapy with low-dose 6-MP 50 mg per day, which she has tolerated in the past. She will need close followup in clinic. Related to Crohn's disease of small intestine with other complication 1) Lab tests today2) CT scan as soon as possible.3) Will contact you with results.4) Please go into the ER if your symptoms worsen or if you feel as though you are unable to manage symptoms at home. 5) Follow up with IBD provider to discuss alternative treatment options for your IBD. Related to Crohn's disease of both small and large intestine without complication -Appointment in Live r Clinic for further evaluation of elevated alk phos Related to Alkaline phosphatase elevation -Labs as ordered-[facility] ol infectious panel-Continue stelara 90 mg SQ every 4 weeks - will have biologics team clarify problems with coverage-Avoid NSAIDs-Calcium and vitamin D-Pneumovax booster-Continue iron sulfate 325 mg three times daily for now-Repeat MR enterography in 3 [id number]-[id number]-hg in 3 months, after MRE Related to Crohn's disease of small intestine without complications -Labs as ordered-[facility] ol infectious studies-Will increase stelara to 90 mg SQ every 4 weeks - if this does not help, then would consider switch to enytvio-Avoid NSAIDs-Calcium and vitamin D-Flu shot and prevnar vaccination today-Pneumovax booster after 8 weeks-Consider repeat MR enterography in 6 months - will order at next GI clinic [id number]-[id number]-[id number] in 3 months Related to Crohn's disease of small intestine without complications --check labs today l ooking at inflammatory markers and blood count and liver numbers. --if liver numbers are still elevated, will rethink liver biopsy--continue current Stelara--probably can continue on the valtrex, but lets look at labs first--if all appears to be controlled based on labs, will start cholestyramine (binds bile salts and works well but doesn't taste good)--follow up in 6 months--will probably get a MRI with that visit--if distention persists, we will check this sooner--we discussed transition to adult GI by 21 years of age Related to Nonspec elev of levels of transamns & lactic acid dehydrgnse 1. We will recheck L FTs today.2. If they are starting to increase, we would reconsider liver biopsy, which could be arranged in the next week or two. If they seem to be decreasing, I would wait until her lab draw next month and repeat these labs.3. We will check a Stelara level prior to her next injection and again discuss with her insurance company whether this dose may be increased.4. If there is no option for increasing the dose, we may need to try a different medication.5. Followup will be arranged in 4 months, but we will follow up with her as lab results are available. Related to Nonspec elev of levels of transamns & lactic acid dehydrgnse 1. Screening labs to day as noted2. We discussed the possible need for liver biopsy3. consider altering medication: potentially increasing Stelara, or adding 6MP for added synergistic effect. 4. We will be in contact with Surekha once labs have been received and reviewed to decide on next steps. Related to Elevated ALT measurement 1. Lab work in 3 wee ks, and we will continue to trend the transaminases.2. MR enterography.3. Flu shot.4. Continue iron supplements for her anemia.5. Continue Stelara.6. Follow up with Dr. Frazier in 6 months.Thank you for the referral. Related to Crohn's disease of small intestine with other complication 1. We will check rou lucrecia screening labs including iron studies as she remains on iron. We will also check her vitamin D level as she is currently on supplemental vitamin D.2. We will see her for followup in 6 months. It may be reasonable at that point to consider repeat imaging to make sure that her inflammation is well controlled. Related to Crohn's disease of small intestine without complications 1. Next injection in 8 weeks2. Follow up with Dr. Frazier in 2-3 months3. Call back with concerns. Related to Crohn's disease of both small and large intestine w abscess 1. I would like to c heck levels of 6MP and Humira. If there is any room to optimize these medications, we will pursue that. If however, that is not possible, we may need to switch to a different biologic medication targeting a different oracle e business developer (such as Stellara)2. We discussed Total Enteral Nutrition, as an option but Surekha is not interested in considering this approach3. We will start budesonide today. She has responded to this well in the past. I am not sure it is sufficient to get her disease under control but may allow us some time to work on our plan Related to Crohn's disease of small intestine with other complication 1. Lab work as outli sg below.2. Trial of Cortifoam nightly for the next 2 weeks.3. Next steps will be based on her response to Cortifoam, laboratory results and discussions with Dr. Frazier, who is her primary care provider.4. Follow up with Dr. Frazier in 4 months.5. I will call the family in followup once we get all of her laboratory results back and I am able to discuss with Dr. Frazier. Thank you for the referral. Related to Crohn's disease of both small and large intestine w abscess 1. Continue weekly H umira.2. Continue current 6-MP at a dose of 50 mg once daily.3. We will slowly wean her Entocort as she appears slightly cushingoid. She will go down to two capsules daily for a week, then one capsule daily for a week and then stop.4. We will decrease her potassium to once daily. 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 She remains on Phos-NaK. We will continue this for the time being, but I imagine we will be able to wean her off this over time as well.6. Routine labs will be checked today.7. We will see her for followup in two months to make sure this plan is moving forward okay. She will also schedule a followup visit in six months. Related to Crohn's disease of small intestine without complications 1. Restart Entocort 9 mg daily and continue this until her followup visit in one month with Nilsa Banks.2. We will check screening labs today.3. We will consider prednisone depending on lab results and course on Entocort.4. We will check Humira levels and antibodies next week and adjust therapy as needed.5. Follow up visit in one month and then two months later. Related to Crohn's disease of small intestine without complications 1. We will rearrange her lab schedule such that she will be due for a lab visit and office visit in six months. At the present time, her lab schedule is disconnected from her office visit schedule.2. We will decrease iron to just one tablet daily. If her hemoglobin remain stable on this, we may be able to discontinue it altogether.3. I encouraged her to get a flu shot sometime this week. Related to Crohn's disease of small intestine without complications QuantiFERON Client Incubated 1. Continue current Humira every two weeks.2. She is currently on iron and we will check labs today to determine if she needs to continue on this iron.3. Routine screening labs will be done today.4. Follow up in six months. Related to Crohn's disease of both small and large intestine without complication 1. She will continue Humira 40 mg every two weeks.2. She will stay on iron for now, but we will reassess that after her labs which are due in June.3. Follow up in three to four months. Related to Crohn's disease of both small and large intestine without complication 1. We will continue Humira at a dose of 40 mg every week.2. A prednisone wean was written out for Surekha. She will wean by 10 mg a week until she gets down to 20 mg, and then wean by 5 mg weekly.3. We will check an MR enterography in a couple of weeks. We will also check screening labs at that time.4. If no improvement is seen over the next couple of weeks either clinically, laboratory-thompson, or on her MRI, we will again discuss the possibility of surgical intervention for her terminal ileal disease.5. We have discussed surgery in the past and again spent some time discussing surgery today. She will be referred for surgery if no improvement is seen.6. She will complete two weeks of ciprofloxacin and metronidazole for the small fluid collections seen at the time of her CT scan when she was an inpatient.7. She will also continue iron 65 mg of elemental iron three times daily. Related to Crohn's disease of both small and large intestine with abscess Albumin Sed rate C-Reactive Protein CBC MRI Enterography WITH Contrast Please see tee schmitt.Parents verbalized understanding of plan and will call with questions or concerns. Related to Crohn's Ileitis 1. If her Remicade l evel is good and antibody level is low, we will check an MR enterography to see if there is any forward progress on the inflammation. If there is apparent improvement, we will stay the course with the current Remicade infusions. If there is no improvement, we will re-discuss the surgical approach to her terminal ileal Crohn's disease.2. If she does have antibodies and/or a low Remicade level, we would consider switching to Humira. If we switch, I would want her on this for several months before reinvestigating her disease. Related to Crohn's Ileitis 1. Will increase dos e of Remicade to 10 mg per kg2. If problems persist despite this increase, we may need to consider surgical intervention. We discussed this briefly including the need for ongoing therapy even after surgery to prevent relapse.3. She is scheduled for an iron infusion this afternoon for her low hemoglobin of 7.9. We will continue to follow that as well. She will get another infusion with her next Remicade. Additionally, she will try to be more compliant with her oral iron.4. We discussed that while poor compliance with her medications is not the sole reason for increased problems, being more compliant is something within her power to help herself as best as possible. Related to Crohn's Ileitis We will restart the Remicade which she will receive every 4 weeks. I will also go up on her dose from 5 mg per kg to 10 mg per kg. She will be seen for follow up in 3 months. If there is improvement, we will continue this course. She will remain on Pentasa and Entocort for now, but if improvement is seen, these will be decreased. We also discussed possibly using Humira instead of Remicade if there is no improvement. Surgery was also discussed. Related to Crohn's Ileitis Remicade (infliximab) Related to Crohn's Ileitis Surekha has Crohn's ileitis and this appears to be flaring. I would like to start by obtaining labs and urinalysis because of some possible flank pain on exam. I would also like to check stool for C. difficile and a fecal calprotectin. I told Surekha that we can use this moving forward to help guide therapy. I also recommend starting a burst of prednisone, for five days. In the past, she had used both Entocort and Pentasa, and I may consider restarting those after the steroid burst depending on her response. Finally, I think imaging her with MR enterography would be indicated as she may be developing enough small bowel disease that some of her symptoms could be due to fibrotic/fibrostenosing disease. Because of the pain with movement sometimes, I recommend going to the emergency room if this worsens or if the pain becomes severe. We do have to be on the lookout for appendicitis even though her symptoms are more likely to be due to her primary Crohn's disease. Because her Remicade was on the , I am not reintroducing this earlier, but that may be helpful to consider at the four-week migdalia. She will discuss this further with Dr. Givens depending on the results of our current evaluation and her response to steroid.Thank you for allowing me to participate in her care. Related to Crohn's Ileitis MRI Enterography Wit h Pelvis WITHOUT And WITH Contrast Related to Crohn's Ileitis Assessments Type Assessment Date assessment Crohn's disease of small intesti ne without complications Patient Care Teams Name Effective Dates (start - stop) Status Members No Information
[2022-07-25] MEDS: POTASSIUM BICARB 25 MEQ EFFERVESCENT TAB 50 MEQ PO (20:09)
--- NOTE | 2022-07-25 20:11 | ED.NURSE ---
Report to RN on Med Surg. Patient updated with admission. She is agreeable.
--- NOTE | 2022-07-25 20:19 | P.IMHP_ITS ---
Hospitalist- H&P: HPI History of Present Illness Date Seen: 07/25/22 Chief complaint: L thigh shooting pain, very painful Narrative: ADMISSION HISTORY AND PHYSICAL - HOSPITALIST Chief Complaint: my leg is killing me HPI: 21-year-old white female with a longstanding history of severe Crohn's disease presents with left leg pain. Her symptoms began in March. She said it began with a left lateral proximal thigh numbness and has progressed both in the intensity of the neuropathy and worsening pain. She states it is a sharp and stabbing discomfort from her lateral hip down to her distal femur. No injury. No skin changes. No swelling. No bruising. No history of back pain. The pain just has escalated to the point of needing evaluation today. While being assessed for this leg pain she relates her long standing issues with Crohn's disease. She is currently in a subacute exacerbation. She states that she is followed by GI closely and has had multiple trials of biologics. She has had an intestinal resection. She has had two anal fistulas with abscess, currently has a seton drain. She is losing weight. She has chronic diarrhea. She is to see her GI doc in 5 days. No fever. Intermittent blood per rectum. Intermittent nausea without hemoptysis. Current weight is 91 lb. Her goal weight is 105-110 lb. ER COURSE: Lumbar spine, hip, knee and chest x-rays were all reviewed and are negative. Labs reveal a white count, increased CRP, severe hypokalemia, hyponatremia. CODE STATUS:FULL CODE EMERGENCY CONTACT PLAN: Baltazar Garner, I've updated the PFSH, medications and allergies in the [facility] tabs. INVESTIGATIONS: LABS/MICRO/ECG/IMAGING Systolic around 90, over diastolic 50s Pulse 89-104 Respiratory rate 14 to 18, unlabored Pulse ox is 100, room air Weight is 45.8 kilos, our last weight recorded was 12/30/2021 of 57.2 kilos CBC reflects a leukocytosis of 16 K, 78% neutrophils, 12% lymphocytes. Hemoglobin is 12.5. Platelet count is reactive at 562. CRP 8.7. B12 normal at 815. Sodium 131 Potassium 2.7 Calcium 8.1 Magnesium 1.8 Normal renal function. Glucose 91. Normal LFTs Chest x-ray normal Lumbar spine x-ray normal Left knee normal Hip x-ray normal Last GI note from [facility] (good summary) The patient has been managed by Dr. Velasco for history of Crohn's ileocolitis, which was initially diagnosed in 2011. She has been maintained on 6- mercaptopurine and Entyvio. She did have surgery in 2017 for treatment of an abscess and had an ileocecectomy at that time. Dating back to 2018, the patient was found to have an elevated alkaline phosphatase level. Her other liver function tests have mostly been within normal limits until early 2021, and early 2012 when she has been found to have an elevated ALT level x2-3 ULN. Interestingly, most recent labs 05/2022 showed normal LFT's with AST 10, ALT 11, and ALK 124. She did have fractionated alkaline phosphatase in January 2020, which showed an alkaline phosphatase of 201, bone fraction of 43, intestinal fraction of 4, and liver fraction of 53. Complete serology work up of chronic liver disease negative. An MRCP was completed in February 2020, which was normal with no evidence of primary sclerosing cholangitis. A liver biopsy was completed on February 20, 2022. That showed small to intermediate sized droplet steatosis characterized by moderate 50% steatosis, no inflammatory activity and no abnormal fibrosis. The path was negative for any biliary tract disease or autoimmune hepatitis.The patient reports that she is overall feeling well. Her appetite is good and her weight has been stable. She does not have any icterus or jaundice, or pruritus. There is no known family history of liver disease. She rarely drinks alcohol. REVIEW OF SYSTEMS: 12-point ROS completed with patient and negative unless otherwise stated in HPI or below. PHYSICAL EXAM: CONSTITUTIONAL: Conversive, good historian. A/O. thin-appearing. VITAL SIGNS: see record. HEENT: Normocephalic, atraumatic. PERRL, EOMI, conjunctivae pink, no scleral icterus. Ears and nose externally normal. Pharynx normal. NECK: No JVD. No carotid bruit, no thyromegaly, no adenopathy. CHEST: Clear to auscultation bilaterally ABDOMEN: soft. normal bowel sounds. HEART: S1 and S2 normal. No harsh murmurs. MUSCULOSKELETAL: No gross joint deformity or swelling. specifically: left leg - not warm. good range of motion. pain to palpation. neuro intact. NEURO: Cranial nerves intact. Grossly intact. No asymmetric findings. SKIN: No rashes, petechiae, concerning changes PSYCHIATRIC: Euthymic. ADMIT TO MEDSURG: FLOOR CARE DVT: ambulation GI: PO intake Time spent: 70 minutes examining patient, conferring with family and patient, care staff, developing care plan [facility] Medical History (Updated 07/25/22 @ 22:10 by Gin Reynolds MD) Crohn's disease ?K50.90 - Crohn's disease, unspecified, without complications (ICD-10) Protein-calorie malnutrition, moderate ?E44.0 - Moderate protein-calorie malnutrition (ICD-10) Surgical History (Updated 07/25/22 @ 21:54 by Gin Reynolds MD) Do-rectal abscess ?K61.1 - Rectal abscess (ICD-10) H/O ileostomy ?Z98.890 - Other specified postprocedural states (ICD-10) Family History (Updated 07/25/22 @ 21:24 by Gin Reynolds MD) Other Do-rectal abscess Social History (Updated 07/25/22 @ 21:29 by Gin Reynolds MD) Narrative: lives in , single. Never . no children. vapes nicotine/THC. smokes THC prn nausea. no regular alcohol. Smoking Status: Never smoker Do you use any of these nicotine containing products: None Second hand tobacco smoke exposure: No How often do you have a drink containing alcohol: never How many standard drinks containing alcohol do you have on a typical day: 1 or 2 How often do you have six or more drinks on one occasion: Never AUDIT-C Alcohol total score: 0 Non-prescribed substance use: marijuana (any form) Caffeine: No service: No Meds Home Medications and Allergies Home Medications Medication Instructions Recorded Confirmed Type cyanocobalamin (vitamin B-12) 1,000 mcg subcut .QMONTH 12/30/21 07/25/22 History 1,000 mcg/mL injection solution ergocalciferol (vitamin D2) 1,250 50,000 unit PO QWEEK 12/30/21 07/25/22 History mcg (50,000 unit) capsule mercaptopurine 50 mg tablet 50 mg PO 12/30/21 History Allergies Allergy/AdvReac Type Severity Reaction Status Date / Time No Known Drug Allergies Allergy Verified 12/30/21 17:41 Exam Const: Vital Signs, click to edit/add: Vital Signs - 24 hr 07/25/22 16:45 07/25/22 20:02 Temperature 98.3 F Pulse Rate [Right Pulse Oximeter] 104 H 89 Respiratory Rate 14 18 Blood Pressure [Ri ght Upper Arm] 92/62 89/56 L Pulse Oximetry 97 100 Oxygen Delivery Me thod Room Air Room Air Hospitalist - H&P: Result Labs Labs: Short CBC 07/25/22 Range/Units 18:08 WBC 16.04 H (4.50-11.00) K/uL Hgb 12.5 (12.0-16.0) gm/dL Hct 37.7 (33.0-51.0) % Plt Count 562 H (140-440) K/uL BMP 07/25/22 18:08 Sodium 131 L Potassium 2.7 L* Chloride 95 L Carbon Dioxide 30 BUN 7 Creatinine 0.5 Glucose 91 Calcium 8.1 L Liver Function 07/25/22 Range/Units 18:08 Total Bilirubin 0.4 (0.1-1.5) mg/dL AST 19 (12-35) U/L ALT 13 (4-35) U/L Alkaline Phosphatase 139 (40-150) U/L Albumin 2.8 L (3.3-5.0) g/dL Assessment and Plan Assessment and plan (1) Hypokalemia: Problem comment: -getting oral and IV replacement. following -likely from chronic diarrhea Status: Acute (2) Peripheral neuropathy: Problem comment: -trial of gabapentin 300mg BID -lumbar MRI in the am -may need EMG outpatient -could there be a connection between crohn's, rectal abscess, lateral nerve impingement? consider adding pelvic mri with lumbar. (blood cultures drawn) Status: Acute (3) Exacerbation of Crohn's disease: Problem comment: -IVF, thiamine, folic acid, mag, potassium. solu-medrol IV tonight; start PO prednisone in am. discuss with her GI doc - transfer? get budesonide (Entocort EC) for her? d/w pharmacy options vs transfer. -dx age 10. multiple drug trials of biologics; followed by Dr. Velasco at [facility]. hx of ileocecal resection current: Entyvio every 6 weeks, daily mercaptuprine, monthly B12 complicated by poor response; rectal abscess; malnutrition Status: Acute (4) Protein-calorie malnutrition, moderate: Problem comment: best weight 128 (age 19); good weight is 105-109. now 91# - lowest it has been as an adult. Status: Acute (5) Hyponatremia: Problem comment: fluids; following. Status: Acute (6) Do-rectal abscess: Problem comment: seton drain placed x 2, currently has drain in place per patient Status: Inactive
[2022-07-25 20:28] VITALS: BP 103/50; PULSE 82; RESP 18; RESP 20; TEMP 36.9; O2SAT 98; BMI 16.2
[2022-07-25 21:33] LABS: Phosphorus* 3.7 mg/dL (2.5-4.5)
[2022-07-25 21:51] LABS: Free T4 Free Thyroxine* 2.35 ng/dL (0.70-1.85)
[2022-07-25] MEDS: PANTOPRAZOLE SODIUM 40 MG INJ IVP (22:10)
[2022-07-25] MEDS: 5 % DEX/0.9 SOD CHL+KCL 20 mEq 1,000 ML 150 ML IV (22:10)
[2022-07-25] MEDS: THIAMINE 250 MG in 0.9 % SODIUM CHLORIDE 100 ml 100 ML 102.5 MG IVPB (22:10)
[2022-07-25] MEDS: OXYCODONE 5 MG TABLET PO (22:11)
[2022-07-25] MEDS: GABAPENTIN 300 MG CAPSULE PO (22:11)
[2022-07-25] MEDS: METHYLPREDNISOLONE SOD SUCC 62.5 MG/ML (125) 125 MG IVP (22:11)
[2022-07-25 22:54] LABS: Appearance Urine Cloudy (Clear); Bilirubin Urine 1+ (Negative); Blood Urine Negative (Negative); Color Urine Yellow (Yellow); Glucose Urine Negative (Negative); Ketones Urine Trace (Negative); Leukocyte Esterase Urine Trace (Negative); Nitrite Urine Negative (Negative); Protein Urine 1+ (Negative); Urobilinogen Urine 0.2 (0.2-1.0)
[2022-07-25 22:58] LABS: HCG Qualitative* Negative (Negative)
[2022-07-25 23:00] VITALS: BP 98/61; PULSE 88; RESP 18; TEMP 36.8; O2SAT 97
[2022-07-25 23:07] LABS: Amphetamine Screen Urine Negative (Negative); Barbiturate Screen Urine Negative (Negative); Benzodiazepines Screen Urine Negative (Negative); Cannabinoid Screen Urine POSITIVE (Negative); Cocaine Screen Urine Negative (Negative); Methadone Screen Urine Negative (Negative); Methamphetamines Screen Urine Negative (Negative); Opiate Screen Urine Negative (Negative); Oxycodone Screen Urine Negative (Negative); Phencyclidine Screen Urine Negative (Negative); Tricyclic Antidepressant Urine Negative (Negative)
[2022-07-25 23:46] LABS: Amorphous Sediment Urine Moderate; Bacteria Urine Moderate; Mucus Urine Moderate; Squamous Epithelial Cell Urine Moderate (None-Few)
[2022-07-26] VITALS (8 sets, daily range): BP systolic 83–112; BP diastolic 51–71; PULSE 57–80; RESP 16–18; TEMP 35.9–36.6; O2SAT 98–99; BMI 17.1
[2022-07-26] MEDS: POTASSIUM CHLORIDE 10 MEQ/100 ML PIGGYBACK 100 MEQ IVPB (00:47)
[2022-07-26] MEDS: OXYCODONE 5 MG TABLET PO ×4 (02:05→20:20)
[2022-07-26] MEDS: 5 % DEX/0.9 SOD CHL+KCL 20 mEq 1,000 ML 150 ML IV (05:48)
--- NOTE | 2022-07-26 06:38 | PC.NURSE ---
ADMISSION NOTE: Pt A&O, very pleasant, cooperative. Pain 8/10, order received and given for oxycodone. VSS on RA. Afebrile. Denies SOB, CP, and N/V. Up independent and tolerating well. Pt tolerating regular diet.
[2022-07-26 06:44] LABS: Ionized Calcium* 1.09 mmol/L (1.11-1.30); Lactate* 1.3 mmol/L (0.5-1.9)
[2022-07-26 06:54] LABS: Eosinophils Percent Auto 0.1 % (0.0-7.0); Hematocrit 28.3 % (33.0-51.0); Hemoglobin* 9.1 gm/dL (12.0-16.0); Immature Granulocytes Pct Auto 1.6 %; Mean Corpuscular HGB Conc 32 gm/dL (32-36); Mean Corpuscular Hemoglobin 27 pg (26-34); Mean Corpuscular Volume 85 fL (80-100); Monocytes Percent Auto 1.5 % (0.0-11.0); Neutrophils Percent Auto 89.8 % (42.0-72.0); Platelet Count* 388 K/uL (140-440); RDW Coefficient of Variation % 15.6 % (11.5-15.5); Red Blood Count 3.35 m/uL (4.00-5.20); White Blood Count* 17.21 K/uL (4.50-11.00)
--- NOTE | 2022-07-26 07:00 | CRLHL7_ITS ---
For Patients: As a result of the Century Cures Act, medical imaging exams and procedure reports are released immediately into your electronic medical record. You may view this report before your referring provider. If you have questions, please contact your health care provider. Indication: neuropathy, left lateral leg Technique: Noncontrast sagittal and axial T1, T2, and sagittal STIR sequences are provided. Comparison: Lumbar radiographs 07/25/2022 Findings: Normal lumbar spine alignment. Vertebral heights are maintained. No fractures. No prevertebral or paraspinal edema. No aggressive osseous lesions. The conus medullaris is normal in signal and location. T12-L1: Normal disc and facet joints. No significant spinal canal stenosis or neural foramen narrowing. L1-2: Normal disc and facet joints. No significant spinal canal stenosis or neural foramen narrowing. L2-3: Normal disc and facet joints. No significant spinal canal stenosis or neural foramen narrowing. L3-4: Normal disc and facet joints. No significant spinal canal stenosis or neural foramen narrowing. L4-5: Normal disc and facet joints. No significant spinal canal stenosis or neural foramen narrowing. L5-S1: Mild annular bulge. Normal facet joints. No significant spinal canal stenosis or neural foramen narrowing. Impression: 1. Normal alignment. No acute osseous abnormality. 2. At L5-S1, there is a mild annular bulge. No significant spinal canal stenosis or neural foramen narrowing. 3. Otherwise unremarkable MRI lumbar spine. Dictated by Amilcar Mccarthy MD @ 07/26/2022 1:52:40 PM (Electronically Signed)
[2022-07-26 07:03] LABS: Albumin* 2.1 g/dL (3.3-5.0); Chloride* 104 mmol/L (96-114); Sodium* 134 mmol/L (135-149)
[2022-07-26 07:04] LABS: Potassium* 3.6 mmol/L (3.6-5.1)
[2022-07-26 07:06] LABS: Creatinine* 0.5 mg/dL (0.5-1.5); Est. Creatinine Clearance* 123.24; Estimated Glomerular Filt Rate 137 ml/min; Lipase* 65 U/L (23-300)
[2022-07-26 07:07] LABS: Blood Urea Nitrogen* 5 mg/dL (5-24); Calcium* 7.4 mg/dL (8.4-10.6); Carbon Dioxide* 25 mmol/L (20-32); Glucose* 189 mg/dL (60-115); Magnesium* 2.3 mg/dL (1.5-2.6)
[2022-07-26 07:10] LABS: C Reactive Protein* 7.3 mg/dL (0.5-1.0)
[2022-07-26 07:17] LABS: Slide Review Reflex Yes
[2022-07-26] MEDS: predniSONE 20 MG TABLET 40 MG PO (07:42)
[2022-07-26] MEDS: POTASSIUM BICARB 25 MEQ EFFERVESCENT TAB PO ×2 (07:42→18:59)
--- NOTE | 2022-07-26 07:55 | PC.NURSE ---
END OF SHIFT NOTE: PT PLEASANT AND COOPERATIVE WITH CARES. PT DENIES CP, SOB, N/V. AMBULATES INDEPENDENTLY WITHIN ROOM. VSS ON RA, BP'S SOFT 90s/60s ASYMPTOMATIC; AFEBRILE. TELE READS NSR. PT REPORTS LEFT LEG PAIN WITH RELIEF FROM PRN PAIN RELIEVER (SEE EMAR). SETON DRAIN IN PLACE ON RECTUM. ORTHOSTATIC BP'S COMPLETED. PT IS A&Ox4. ABDOMEN TENDER TO PALPATION. CHRONIC DIARRHEA. CALL LIGHT WITHIN PT?S REACH.?
[2022-07-26 08:37] LABS: Slide Review Acceptable Review (Acceptable)
[2022-07-26] MEDS: MULTIVITAMIN/MINERALS 1 TABLET 1 TAB PO (08:47)
[2022-07-26] MEDS: GABAPENTIN 300 MG CAPSULE PO ×2 (08:47→20:22)
[2022-07-26] MEDS: FOLIC ACID 1 MG TABLET PO (08:47)
[2022-07-26] MEDS: THIAMINE 250 MG in 0.9 % SODIUM CHLORIDE 100 ml 100 ML 102.5 MG IVPB ×3 (10:06→21:05)
--- NOTE | 2022-07-26 14:40 | P.IMPN_ITS ---
Progress Note: A&P Assessment and plan (1) Hypokalemia: Problem details: -getting oral and IV replacement. following -likely from chronic diarrhea Status: Acute Assessment and Plan: Potassium 2.7 on admission. After supplementation improved to 3.6. Recheck potassium in the morning. (2) Peripheral neuropathy: Problem details: -trial of gabapentin 300mg BID - tolerating, and may be having noticeable improvement in symptoms already. -lumbar MRI, entirely normal -may need EMG outpatient -most likely has nerve impingement from significant weight loss and paucity of adipose tissue. Status: Acute Assessment and Plan: Continue with current gabapentin. (3) Exacerbation of Crohn's disease: Problem details: -IVF, thiamine, folic acid, mag, potassium. solu-medrol IV tonight; start PO prednisone in am. Already notice significant improvement after 1 day of steroids. -dx age 10. multiple drug trials of biologics; followed by Dr. Velasco at [facility]. hx of ileocecal resection current: Entyvio every 6 weeks, daily mercaptuprine, monthly B12 complicated by poor response; rectal abscess; malnutrition Status: Acute Assessment and Plan: Continue with prednisone 40 mg daily. Continue on the same until she has a follow-up appointment with her human resources partner. I asked patient to call Dr. Velasco's office for an appointment in the outpatient setting. (4) Protein-calorie malnutrition, moderate: Problem details: best weight 128 (age 19); good weight is 105-109. now 91# - lowest it has been as an adult. Status: Acute Assessment and Plan: 1. She spoke with our cpa tax. 2. Continue with treatment for Crohn's exacerbation. 3. Address her anxiety and depression with initiation of mirtazapine 7.5 mg once daily. This will have the dual benefit of addressing her mood stabilization efforts as well as an appetite stimulant. (5) Hyponatremia: Problem details: fluids; following. Status: Acute Assessment and Plan: Saline lock IV. Recheck sodium in the morning. (6) Do-rectal abscess: Problem details: seton drain placed x 2, currently has drain in place per patient Status: Inactive Assessment and Plan: Continue with current treatment plan. (7) Adjustment reaction with mixed emotional features: Problem details: Depression and anxiety associated with her chronic medical illness. She will c giftyue to work closely with her human resources partner in regard to the Crohn's disease. She will initiate mirtazapine 7.5 mg once daily for now and consider dose adjustments over time. Status: Acute Plan 1. Plan as specified above 2. If doing well in the morning consider discharge home with follow-up with her human resources partner as planned. 3. Patient agreeable to above stated plans and recommendations. Time Spent With Patient Total time spent: 50 minutes Subjective Time Seen by Provider: 10:00 Date Seen: 07/26/22 Interval history: Hospital day 2. 21-year-old woman presents to the emergency department principally for concern of evolving L4-L5 dermatomal numbness and pain. Has had Crohn's disease since age 10. Has been treated with multiple different types of medications over the years. Recently felt a sense of depression and hopelessness and the stop taking all of her medicines to treat her Crohn's. Subsequently had an exacerbation of her Crohn's with frequent loose stools throughout the day. In the process has lost a great deal of weight. Previously weighed between 100 and 120 lb. More recently weighing about 90 lb. The L4 and L5 dermatomal numbness and pain started in March of this year. It has steadily evolved since then. She denies any focal motor neurologic deficits. Denies weakness. Pain exacerbated by certain movements and weight- bearing. Pain became so intense that she present to the emergency department yesterday for help. On admission she was given methylprednisolone 125 mg IV and then started on oral prednisone 40 mg daily subsequently. She has already notices marked improvement in her loose stools. Her loose stools have stopped already. She feels some g leans in her stomach like she is actually processing food compared to previously when the food that she ate past right through her. She is pleased with this response. Exam Narrative: Exam Narrative: Appears comfortable in no acute distress. Thin with gaunt face. Alert, oriented to self, place, time, situation. Friendly, cooperative, articulate. Thoughtful. Lungs are clear to auscultation. Heart tones with regular rhythm. Abdomen with active bowel sounds, soft, nontender. Very thin abdomen. Independent transfer, station, and gait. No tremor, asterixis, or ataxia. Strength is equal and symmetric bilateral lower extremities. Const: Vital Signs, click to edit/add: Vital Signs - 24 hr 07/25/22 16:45 07/25/22 20:02 07/25/22 20:28 Temperature 98.3 F 98.5 F Pulse Rate Pulse Rate [Left R adial] 82 Pulse Rate [Pulse Oximeter] Pulse Rate [Right Pulse Oximeter] 104 H 89 Pulse Rate [orthos tatic lying] Pulse Rate [orthos tatic sitting] Pulse Rate [orthos tatic standing] Respiratory Rate 14 18 20 Blood Pressure [Ri ght Arm] 103/50 L Blood Pressure [Ri ght Upper Arm] 92/62 89/56 L Blood Pressure [or thostatic lying] Blood Pressure [or thostatic sitting] Blood Pressure [or thostatic standing ] Pulse Oximetry 97 100 [facility] 07/25/22 20:28 07/25/22 23:00 07/25/22 23:00 Temperature 98.3 F Pulse Rate Pulse Rate [Left R adial] Pulse Rate [Pulse Oximeter] 88 88 Pulse Rate [Right Pulse Oximeter] Pulse Rate [orthos tatic lying] Pulse Rate [orthos tatic sitting] Pulse Rate [orthos tatic standing] Respiratory Rate 18 18 18 Blood Pressure [Ri ght Arm] 98/61 Blood Pressure [Ri ght Upper Arm] Blood Pressure [or thostatic lying] Blood Pressure [or thostatic sitting] Blood Pressure [or thostatic standing ] Pulse Oximetry 98 97 Oxygen Delivery [facility] Room Air Room Air 07/26/22 03:00 07/26/22 05:28 07/26/22 05:54 Temperature 97.3 F L Pulse Rate 77 Pulse Rate [Left R adial] Pulse Rate [Pulse Oximeter] 80 Pulse Rate [Right Pulse Oximeter] Pulse Rate [orthos tatic lying] 57 L Pulse Rate [orthos tatic sitting] 66 Pulse Rate [orthos tatic standing] 75 Respiratory Rate 16 Blood Pressure [Ri ght Arm] 98/62 Blood Pressure [Ri ght Upper Arm] Blood Pressure [or thostatic lying] 83/54 L Blood Pressure [or thostatic sitting] 88/60 L Blood Pressure [or thostatic standing ] 103/68 Pulse Oximetry 98 [facility] 07/26/22 07:00 07/26/22 07:00 07/26/22 07:00 Temperature 97.3 F L Pulse Rate 73 Pulse Rate [Left R adial] Pulse Rate [Pulse Oximeter] 69 69 Pulse Rate [Right Pulse Oximeter] Pulse Rate [orthos tatic lying] Pulse Rate [orthos tatic sitting] Pulse Rate [orthos tatic standing] Respiratory Rate 16 16 Blood Pressure [Ri ght Arm] 87/51 L Blood Pressure [Ri ght Upper Arm] Blood Pressure [or thostatic lying] Blood Pressure [or thostatic sitting] Blood Pressure [or thostatic standing ] Pulse Oximetry 99 Oxygen Delivery Me thod Room Air Documenting provider has reviewed patient's vital signs: yes Labs Labs: Laboratory Results - last 24 hr 07/25/22 07/25/22 07/25/22 18:08 21:05 22:39 WBC 16.04 H RBC 4.64 Hgb 12.5 Hct 37.7 MCV 81 MCH 27 MCHC 33 RDW Coeff of Moises 15.1 Plt Count 562 H Neut % (Auto) 78.9 H Lymph % (Auto) 12.7 L [place] % (Auto) 6.6 Eos % (Auto) 1.4 Baso % (Auto) 0.1 Neut # (Auto) 12.70 H Lymph # (Auto) 2.00 [place] # (Auto) 1.10 H Eos # (Auto) 0.20 Baso # (Auto) 0.00 Diff Slide Review ESR 53 H Sodium 131 L Potassium 2.7 L* Chloride 95 L Carbon Dioxide 30 BUN 7 Creatinine 0.5 Estimated Creat Clear 128.72 Estimated GFR 137 Glucose 91 Lactate Calcium 8.1 L Ionized Calcium Tien Phosphorus 3.7 Magnesium 1.8 Total Bilirubin 0.4 AST 19 ALT 13 Alkaline Phosphatase 139 C-Reactive Protein 8.7 H Total Protein 6.9 Albumin 2.8 L Lipase Vitamin B12 815 Procalcitonin 38.90 H TSH 2.080 Free T4 2.35 H HCG, Qual Urine Color Yellow Urine Appearance Cloudy A Urine pH 6.0 Ur Specific [place] 1.020 Urine Protein 1+ A Urine Glucose (UA) Negative Urine Ketones Trace A Urine Blood Negative Urine Nitrite Negative Urine Bilirubin 1+ A Urine Urobilinogen 0.2 Ur Leukocyte Esterase Trace A Urine RBC 2-5 A Urine WBC 2-5 Ur Squamous Epith Cells Moderate A Amorphous Sediment Moderate A Urine Bacteria Moderate A Urine Mucus Moderate A Urine Opiates Screen Negative Ur Oxycodone Screen Negative Urine Methadone Screen Negative Ur Propoxyphene Screen Negative Ur Barbiturates Screen Negative U Tricyclic Antidepress Negative Ur Phencyclidine Scrn Negative Ur Amphetamines Screen Negative U Methamphetamines Scrn Negative U Benzodiazepines Scrn Negative Urine Cocaine Screen Negative U Marijuana (THC) Screen POSITIVE A* Ur Drug Screen Comment See Note Lab Acknowledgement Test Added 07/25/22 07/25/22 07/26/22 22:40 Unknown 06:02 WBC 17.21 H RBC 3.35 L Hgb 9.1 L Hct 28.3 L MCV 85 MCH 27 MCHC 32 RDW Coeff of Moises 15.6 H Plt Count 388 Neut % (Auto) 89.8 H Lymph % (Auto) 7.0 L [place] % (Auto) 1.5 Eos % (Auto) 0.1 Baso % (Auto) 0.0 Neut # (Auto) 15.50 H Lymph # (Auto) 1.20 [place] # (Auto) 0.30 Eos # (Auto) 0.00 Baso # (Auto) 0.00 Diff Slide Review Acceptable Review ESR Sodium 134 L Potassium 3.6 Chloride 104 Carbon Dioxide 25 BUN 5 Creatinine 0.5 Estimated Creat Clear 123.24 Estimated GFR 137 Glucose 189 H Lactate 1.3 Calcium 7.4 L Ionized Calcium Tien 1.09 L Phosphorus Magnesium 2.3 Total Bilirubin AST ALT Alkaline Phosphatase C-Reactive Protein 7.3 H Total Protein Albumin 2.1 L Lipase 65 Vitamin B12 Procalcitonin 21.90 H TSH Free T4 HCG, Qual Negative Cancelled Urine Color Urine Appearance Urine pH Ur Specific [place] Urine Protein Urine Glucose (UA) Urine Ketones Urine Blood Urine Nitrite Urine Bilirubin Urine Urobilinogen Ur Leukocyte Esterase Urine RBC Urine WBC Ur Squamous Epith Cells Amorphous Sediment Urine Bacteria Urine Mucus Urine Opiates Screen Ur Oxycodone Screen Urine Methadone Screen Ur Propoxyphene Screen Ur Barbiturates Screen U Tricyclic Antidepress Ur Phencyclidine Scrn Ur Amphetamines Screen U Methamphetamines Scrn U Benzodiazepines Scrn Urine Cocaine Screen U Marijuana (THC) Screen Ur Drug Screen Comment Lab Acknowledgement Imaging MRI lumbosacral spine: Attestation: I have reviewed the pertinent imaging results. Radiologist's impression: Findings: Normal lumbar spine alignment. Vertebral heights are maintained. No fractures. No prevertebral or paraspinal edema. No aggressive osseous lesions. The conus medullaris is normal in signal and location. T12-L1: Normal disc and facet joints. No significant spinal canal stenosis or neural foramen narrowing. L1-2: Normal disc and facet joints. No significant spinal canal stenosis or neural foramen narrowing. L2-3: Normal disc and facet joints. No significant spinal canal stenosis or neural foramen narrowing. L3-4: Normal disc and facet joints. No significant spinal canal stenosis or neural foramen narrowing. L4-5: Normal disc and facet joints. No significant spinal canal stenosis or neural foramen narrowing. L5-S1: Mild annular bulge. Normal facet joints. No significant spinal canal sten osis or neural foramen narrowing. Impression: 1. Normal alignment. No acute osseous abnormality. 2. At L5-S1, there is a mild annular bulge. No significant spinal canal stenosis or neural foramen narrowing. 3. Otherwise unremarkable MRI lumbar spine.
--- NOTE | 2022-07-26 19:39 | PC.NURSE ---
End of shift: Pt A&O, very pleasant, cooperative. Pain managed w/oxy. VSS on RA. Afebrile. Denies SOB, CP, and N/V. Up independent and tolerating well. Pt tolerating regular diet.
[2022-07-26] MEDS: MIRTAZAPINE 15 MG TABLET 7.5 MG PO (20:21)
[2022-07-26] MEDS: SODIUM CHLORIDE 0.9 % (FLUSH) 10 ML SYRINGE 5 ML IVF (22:13)
[2022-07-27 03:20] VITALS: BP 110/80; PULSE 62; RESP 16; TEMP 36.3; O2SAT 100
[2022-07-27] MEDS: OXYCODONE 5 MG TABLET PO ×2 (03:26→10:26)
[2022-07-27 06:48] LABS: Hematocrit 30.4 % (33.0-51.0); Hemoglobin* 9.7 gm/dL (12.0-16.0); Mean Corpuscular HGB Conc 32 gm/dL (32-36); Mean Corpuscular Hemoglobin 27 pg (26-34); Mean Corpuscular Volume 85 fL (80-100); Platelet Count* 455 K/uL (140-440); Red Blood Count 3.56 m/uL (4.00-5.20); White Blood Count* 20.17 K/uL (4.50-11.00)
[2022-07-27 06:52] LABS: Slide Review Reflex No
[2022-07-27 07:00] VITALS: BP 104/63; PULSE 64; RESP 16; TEMP 36.5; O2SAT 100
[2022-07-27 07:06] LABS: Iron* 40 ug/dL (37-170)
[2022-07-27 07:07] LABS: Chloride* 109 mmol/L (96-114); Potassium* 4.3 mmol/L (3.6-5.1); Sodium* 136 mmol/L (135-149)
[2022-07-27 07:10] LABS: Blood Urea Nitrogen* 5 mg/dL (5-24); Carbon Dioxide* 26 mmol/L (20-32); Creatinine* 0.5 mg/dL (0.5-1.5); Est. Creatinine Clearance* 128.72; Estimated Glomerular Filt Rate 137 ml/min
[2022-07-27 07:11] LABS: Calcium* 8.2 mg/dL (8.4-10.6); Glucose* 102 mg/dL (60-115); Magnesium* 2.1 mg/dL (1.5-2.6); Phosphorus* 3.5 mg/dL (2.5-4.5)
[2022-07-27 07:13] LABS: C Reactive Protein* 4.8 mg/dL (0.5-1.0)
[2022-07-27 07:15] LABS: Percent Iron Saturation 41 % (20-50); Total Iron Binding Capacity 98 ug/dL (265-497)
--- NOTE | 2022-07-27 07:38 | PC.NURSE ---
Pt up independently, rates pain 1-7/10 in abdomen and left thigh. Denies use of cold or heat to thigh. Oxycodone per MAR given with relief.
[2022-07-27] MEDS: POTASSIUM BICARB 25 MEQ EFFERVESCENT TAB PO (09:36)
[2022-07-27] MEDS: MULTIVITAMIN/MINERALS 1 TABLET 1 TAB PO (09:36)
[2022-07-27] MEDS: FOLIC ACID 1 MG TABLET PO (09:37)
[2022-07-27] MEDS: GABAPENTIN 300 MG CAPSULE PO (09:37)
[2022-07-27] MEDS: predniSONE 20 MG TABLET 40 MG PO (09:37)
[2022-07-27] MEDS: SODIUM CHLORIDE 0.9 % (FLUSH) 10 ML SYRINGE 5 ML IVF (09:37)
[2022-07-27] MEDS: THIAMINE 250 MG in 0.9 % SODIUM CHLORIDE 100 ml 100 ML 102.5 MG IVPB ×2 (09:37→14:39)
[2022-07-27 11:00] VITALS: BP 105/72; PULSE 73; RESP 14; TEMP 36.2; O2SAT 100
--- NOTE | 2022-07-27 13:37 | P.DS_ITS ---
DS: Providers Provider Time Seen by Provider: 12:30 Date Seen: 07/27/22 Date of admission: 07/25/22 20:59 Primary care physician: Not a Local Provider Admitting Clinician: Gin Reynolds MD Consults: 07/25/22 21:22 Consult to Nutrition [CONS] Routine Comment: Reason for consult:: Nutritional Consult Comment: malnutrition related to crohn's disease 07/26/22 09:55 Consult to Nutrition [CONS] Routine Comment: Reason for consult:: Miscellaneous Comment: Crohn's and wt loss 07/26/22 15:03 Consult to Physical Therapy [CONS] Routine Comment: Reason(s) for PT Consult:: Evaluate and Treat Any Restrictions?:: No Restrictions Comment: L4 and L5 dermatomal numbness and pain. Attending Physician on discharge: Georgie Gaston MD Date of Discharge: 07/27/22 DS: Diagnosis Discharge Diagnosis (1) Peripheral neuropathy: Status: Acute Problem details: - Left lateral thigh numbness persistent since March 2022, with more recent burning-type pain - Suspect meralgia paresthetica, most likely has nerve impingement from significant weight loss and paucity of adipose tissue - lumbar MRI, unremarkable - trial of gabapentin 300mg BID - tolerating, and some improvement in symptoms - may need EMG outpatient if symptoms persist (2) Exacerbation of Crohn's disease: Status: Acute Problem details: - dx age 10. multiple drug trials of biologics; followed by Dr. Velasco at [facility]. hx of ileocecal resection current: Entyvio every 6 weeks, daily mercaptuprine, monthly B12 complicated by poor response; rectal abscess; malnutrition, medication noncomli ance - Got IVF, thiamine, folic acid, mag, potassium. solu-medrol. Now on PO prednisone. Already improvement some improvement. Continue oral steroid taper as outpatient. F/u with GI in 2-3 weeks. (3) Hypokalemia: Status: Resolved Problem details: - likely from chronic diarrhea - got oral and IV replacement - Continue po supplementation as outpatient while having ongoing diarrhea (4) Hyponatremia: Status: Resolved Problem details: - likely from chronic diarrhea (5) Hypocalcemia: Status: Acute Problem details: - likely from chronic diarrhea (6) Protein-calorie malnutrition, moderate: Status: Acute Problem details: best weight 128 (age 19); good weight is 105-109. now 91# - lowest it has been as an adult. (7) Do-rectal abscess: Status: Inactive Problem details: seton drain placed x 2, currently has drain in place per patient (8) Adjustment reaction with mixed emotional features: Status: Acute Problem details: Depression and anxiety associated with her chronic medical illness. 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 She will initiate mirtazapine 7.5 mg once daily for now and consider dose adjustments over time. F/u with therapist in the next two weeks. Discussed the risk of SI with use of antidepressants. Patient contracted for safety and to let someone know if these symptoms arise. DS: Summary Hospital Course Hospital Course: This is a 21-year-old female with a 11 year history of Crohn's disease who presented through the emergency department for worsening left lateral thigh pain. Additionally she was having a Crohn's flare. In March she was admitted to a hospital for a Crohn's flare and was there for many days with electrolyte abnormalities and dehydration as a result of the Crohn's flare. She was discharged on a long taper of prednisone which she finished in May. Just after finishing the prednisone she felt depressed and stop taking all of her medications. Her Crohn's then flared up again with more than 10 watery stools every day. In March she had spontaneously developed left lateral thigh numbness that had no pain associated with it. When her Crohn's flared up recently she developed pain in that area in addition to persistent numbness. She saw a therapist recently to establish to treat anxiety and depression which has really worsened lately. When she came to the ER she was found to have a weight of 91 lb, but notes that her normal weight is around 105-109 lb. She was started on steroids, mirtazapine, and gabapentin as well as given IV fluids and replacement for various electrolytes here. She has improved and notes that there are now some chunks in her stools in the pain in her left lateral thigh has gotten much better. Numbness is persistent. She was quite tearful today about her medical and recent mental health history. Her friend, Brunilda, was in the room with her. She did note that she felt ready to go home, but was fearful that she might get worse again when she got home. We discussed a plan of care which included follow-up for Crohn's, left thigh complaints, and mental health. We also discussed things that should bring her back sooner for re-evaluation such as worsening pain, extending numbness, worsening Crohn's symptoms, or fever or chills. She demonstrated understanding and is discharged home in stable condition today. Today I spent 45 minutes rounding on and discharging the patient. Greater than 50% included discussing care with the the patient and her friend. Time Spent with Patient Time attestation: Total time spent providing and/or coordinating discharge services: Exam Narrative: Exam Narrative: General: Tearful at times, had resolved about [address] into my interview. Awake, alert, oriented x3. Moderate pallor. No jaundice. Oropharynx: Clear. Mucous membranes moist. Cardiovascular: Regular rate and rhythm. No murmurs, gallops, or rubs. Respiratory: Clear to auscultation bilaterally. No wheezes or crackles. Abdomen: Bowel sounds present. Soft, nondistended, nontender. Extremities: No pedal edema. Neuro: I watched her walk from the bathroom to her bed just after I walked in to see her. Gait is within normal limits. Strength is 5/5 and symmetric in both lower extremities. DTRs intact and symmetric. Light touch sensation is diminished in the left lateral thigh in a well demarcated distribution of the lateral femoral nerve. Pressure sensation is intact. Coordination is intact in upper and lower extremities. Const: Vital Signs, click to edit/add: Vital Signs - 24 hr 07/26/22 15:00 07/26/22 15:00 07/26/22 19:50 Temperature 96.9 F L 97.8 F Pulse Rate [Pulse Oximeter] 73 73 77 Respiratory Rate 16 16 18 Blood Pressure [Ri t Arm] 112/71 112/71 Pulse Oximetry 99 98 Oxygen Delivery Me thod Room Air Room Air 07/26/22 23:00 07/27/22 03:20 07/27/22 07:00 Temperature 97.4 F L Pulse Rate [Pulse Oximeter] 62 64 Respiratory Rate 16 16 16 Blood Pressure [Ri t Arm] 110/80 Pulse Oximetry 99 100 Oxygen Delivery Me thod Room Air Room Air 07/27/22 07:00 07/27/22 11:00 Temperature 97.7 F 97.2 F L Pulse Rate [Pulse Oximeter] 64 73 Respiratory Rate 16 14 Blood Pressure [Ri ght Arm] 104/63 105/72 Pulse Oximetry 100 100 Oxygen Delivery Me thod Room Air Room Air Documenting provider has reviewed patient's vital signs: yes DS: Data Data Completed and Pending Completed studies during hospitalization: Ordering Physician: Zee Aguilar M.D. Date of Service: 07/25/22 Procedure(s): XR hip LT min 2V Accession Number(s): [id number] cc: Zee Aguilar M.D.; Provider,Not a Local ~ For Patients: As a result of the Cures Act, medical imaging exams and procedure reports are released immediately into your electronic medical record. You may view this report before your referring provider. If you have questions, please contact your health care provider. Indication: HIP GROIN PAIN LT SIDE Technique: Pelvis and left hip 3 views Comparison: None Findings: Bones: Alignment is normal. No fractures or bone lesions. Joint spaces: Joint spaces are preserved. No degenerative changes. Soft tissues: Unremarkable. Impression: No findings to explain pain. Dictated by Amilcar La MD @ 07/25/2022 7:48:20 PM (Electronically Signed) Ordering Physician: Zee Aguilar M.D. Date of Service: 07/25/22 Procedure(s): XR knee LT 2V Accession Number(s): [id number] cc: Zee Aguilar M.D.; Provider,Not a Local ~ For Patients: As a result of the Cures Act, medical imaging exams and procedure reports are released immediately into your electronic medical record. You may view this report before your referring provider. If you have questions, please contact your health care provider. Indication: Left lateral leg pain, dorsiflexion weakness Technique: Two views Comparison: None Findings/Impression: Bones: Alignment is normal. No fractures or bone lesions. Joint spaces: Unremarkable. Soft tissues: Unremarkable. Dictated by Alden Solis MD @ 07/25/2022 7:47:08 PM (Electronically Signed) Ordering Physician: Zee Aguilar M.D. Date of Service: 07/25/22 Procedure(s): XR lumbar spine 2-3V Accession Number(s): [id number] cc: Zee Aguilar M.D.; Provider,Not a Local ~ For Patients: As a result of the 21st Century Cures Act, medical imaging exams and procedure reports are released immediately into your electronic medical record. You may view this report before your referring provider. If you have questions, please contact your health care provider. INDICATION: Left lateral leg pain. TECHNIQUE: Lumbar spine 2 view. COMPARISON: None. FINDINGS: Bones: Alignment is normal. No fractures or significant bone lesions. Joints: Disc spaces and facets are unremarkable. Soft tissues: Unremarkable. Dictated by Shravan Garcia MD @ 07/25/2022 7:44:30 PM (Electronically Signed) Ordering Physician: Zee Aguilar M.D. Date of Service: 07/25/22 Procedure(s): XR chest 2V Accession Number(s): [id number] cc: Zee Aguilar M.D.; Provider,Not a Local ~ For Patients: As a result of the Cures , medical imaging exams and procedure reports are released immediately into your electronic medical record. You may view this report before your referring provider. If you have questions, please contact your health care provider. Indication: Leukocytosis. Technique: Chest 2 views Comparison: None Findings/Impression: Cardiovascular and mediastinum: Heart size and vasculature are normal in caliber and appearance. Mediastinum is within normal limits. Lungs and pleural spaces: Lungs are clear. No sign of infiltrate or mass. No sign of pleural effusion. No pneumothorax. Bones and soft tissues: No significant findings. Dictated by Alden Solis MD @ 07/25/2022 7:46:08 PM (Electronically Signed) Ordering Physician: Gin Reynolds M.D. Date of Service: 07/26/22 Procedure(s): MR lumbar spine wo con Accession Number(s): [id number] cc: Gin Reynolds M.D.; Provider,Not a Local ~ For Patients: As a result of the Cures Act, medical imaging exams and procedure reports are released immediately into your electronic medical record. You may view this report before your referring provider. If you have questions, please contact your health care provider. Indication: neuropathy, left lateral leg Technique: Noncontrast sagittal and axial T1, T2, and sagittal STIR sequences are provided. Comparison: Lumbar radiographs 07/25/2022 Findings: Normal lumbar spine alignment. Vertebral heights are maintained. No fractures. No prevertebral or paraspinal edema. No aggressive osseous lesions. The conus medullaris is normal in signal and location. T12-L1: Normal disc and facet joints. No significant spinal canal stenosis or neural foramen narrowing. L1-2: Normal disc and facet joints. No significant spinal canal stenosis or neural foramen narrowing. L2-3: Normal disc and facet joints. No significant spinal canal stenosis or neural foramen narrowing. L3-4: Normal disc and facet joints. No significant spinal canal stenosis or neural foramen narrowing. L4-5: Normal disc and facet joints. No significant spinal canal stenosis or neural foramen narrowing. L5-S1: Mild annular bulge. Normal facet joints. No significant spinal canal stenosis or neural foramen narrowing. Impression: 1. Normal alignment. No acute osseous abnormality. 2. At L5-S1, there is a mild annular bulge. No significant spinal canal stenosis or neural foramen narrowing. 3. Otherwise unremarkable MRI lumbar spine. Dictated by Amilcar Mccarthy MD @ 07/26/2022 1:52:40 PM (Electronically Signed) Labs on day of discharge: Labs from last 24 hours 07/27/22 06:08 WBC 20.17 H RBC 3.56 L Hgb 9.7 L Hct 30.4 L MCV 85 MCH 27 MCHC 32 Plt Count 455 H Sodium 136 Potassium 4.3 Chloride 109 Carbon Dioxide 26 BUN 5 Creatinine 0.5 Estimated Creat Clear 128.72 Estimated GFR 137 Glucose 102 Calcium 8.2 L Phosphorus 3.5 Magnesium 2.1 Iron 40 TIBC 98 L % Saturation 41 C-Reactive Protein 4.8 H Preliminary micro results at discharge 07/25/22 23:15 Blood Culture - Preliminary Blood 07/25/22 23:10 Blood Culture - Preliminary Blood NO GROWTH AFTER 24 HOURS 07/25/22 Unknown Urine Culture - Preliminary Urine,Clean Catch No growth. Discharge Plan Discharge Disposition: Home, Self-Care Date of Admission: 07/25/22 20:59 Attending Provider on Discharge: Georgie Gaston Primary Care Provider: Provider,Not a Local Condition: Improved Anticipated Discharge Date/Time: 07/27/22 13:38 Discharge Medications: New calcium carbonate-vitamin D3 [Calcium 500 + D] 500 mg-10 mcg (400 unit) tablet 1 tab PO BID Qty: 60 0RF gabapentin 300 mg Capsule 300 mg PO BID Qty: 60 0RF mirtazapine 15 mg Tablet 7.5 mg PO HS Qty: 30 0RF multivitamin with folic acid [Thera] 400 mcg Tablet 1 tab PO DAILY Qty: 30 0RF Effer-K 25 mEq Tablet, Effervescent 25 meq PO DAILY Qty: 30 0RF oxycodone 5 mg Tablet 2.5 - 5 mg PO Q4H PRN (Reason: Pain) Qty: 10 0RF prednisone 20 mg Tablet 40 mg PO DAILYWM Qty: 35 0RF Rx Instructions: Take 40 mg daily x 1 week, then 30 mg daily x 1 week, then 20 mg daily x 1 w [place], then 10 mg daily x 1 week, then off. Continued mercaptopurine 50 mg tablet 50 mg PO DAILY cyanocobalamin (vitamin B-12) 1,000 mcg/mL solution 1,000 mcg subcut .QMONTH Discontinued ergocalciferol (vitamin D2) 1,250 mcg (50,000 unit) capsule 50,000 unit PO QWEEK Patient Comments: TAKE 1 CAPSULE BY MOUTH EVERY WEEK FOR 8 WEEKS Discharge Orders: Discharge Order (Routine); Ordered 07/27/22 Ordered By: Georgie Gaston Patient Education: Prednisone (By mouth), Multivitamins with Minerals (By mouth), Potassium Supplement (By mouth), Gabapentin (By mouth), Oxycodone, Rapid Release (By mouth), Mirtazapine (By mouth), Calcium/Vitamin D Supplement (By mouth), Crohn Disease (DC), Hypokalemia (DC) Additional Instructions: 1. Establish with a PCP to see in 5-7 days. 2. F/u with neurologist for numbness and pain in Left lateral thigh. 3. F/u with your GI doctor in 2-3 weeks. 4. F/u with therapist as previously planned, within the next 2 weeks. Activity Level: No Restrictions Discharge Diet: Regular Follow Up Appointments: Remedios Youssef MD [Staff Physician] - 07/31/22 9:45 am ([facility]) Provider,Not a Local [Primary Care Provider] - Forms: [facility] Info Instructions
--- NOTE | 2022-07-27 16:42 | PC.NURSE ---
Discharge: Pt A&O, very pleasant, cooperative. Pain managed w/oxy. VSS on RA. Afebrile. Denies SOB, CP, and N/V. Up independent and tolerating well. Pt tolerating regular diet. Discharged at 1555. IV removed intact. Patient signed discharge instructions and belonging sheet.
[2022-07-30 17:44] LABS: Vitamin B1, Whole Blood 148 nmol/L (70-180)
== END 2022-07-27 15:55 | disposition home or self-care (01) | DRG 245 ==
LOC: ED 19:28 → MEDSURG 20:03
PROVIDERS: Family Medicine; Internal Medicine; Admitting Provider Family Medicine; Emergency Provider Family Medicine; Visit Provider Family Medicine
DX: K50.914 Crohn's disease, unspecified, with abscess (principal); K61.1 Rectal abscess; E87.1 Hypo-osmolality and hyponatremia; E86.0 Dehydration; E44.0 Moderate protein-calorie malnutrition; Z68.1 Body mass index [BMI] 19.9 or less, adult; G57.12 Meralgia paresthetica, left lower limb; G62.9 Polyneuropathy, unspecified; E87.6 Hypokalemia; Z90.49 Acquired absence of other specified parts of digestive tract; F43.23 Adjustment disorder with mixed anxiety and depressed mood; E83.51 Hypocalcemia
CPT/HCPCS: 36415; 71046; 72100; 72148; 73502; 73560; 80048; 80053; 80306; 81001; 82040; 82330; 82607; 83540; 83550; 83605; 83690; 83735; 84100; 84145; 84425; 84439; 84443; 84703; 85025; 85027; 85651; 86140; 87040; 87086; 97161; 99285; A9153; A9270; C9113; J1885; J2405; J2930; J3411; J3475; J3480; J7030; J7512

== ENCOUNTER 2022-07-28 18:13 | Outpatient (CLI) | payer BC, SELFPAY | END 2022-07-28 18:14 | disposition home or self-care (01) | LOC: AMB 08-15 11:30 | PROVIDERS: Visit Provider Family Medicine | DX: K56.609 Unspecified intestinal obstruction, unspecified as to partial versus complete obstruction (principal) | CPT/HCPCS: A0425; A0427; A0428 ==

== ENCOUNTER 2023-02-20 11:03 | Emergency (ER) | payer BC, SELFPAY ==
[2023-02-20 11:08] VITALS: BP 100/77; PULSE 102; RESP 16; TEMP 36.9; O2SAT 99; BMI 21.4
--- NOTE | 2023-02-20 11:16 | ED_ITS ---
HPI - General Adult General Date Seen: 02/20/23 Chief complaint: Extremity Pain/Injury, Upper Stated complaint: L wrist injury Time Seen by Provider: 02/20/23 11:11 History of Present Illness HPI narrative: This is a 22-year-old female with a past medical history notable for Crohn's disease, previous peripheral neuropathy, hypocalcemia, electrolyte disturbances who presents to the ER today with left wrist and forearm pain. 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 She often will carry heavy trays. However she has not had any previous injury to her wrist or any other long-term pain in her wrist. She was working yesterday. She does recall any unusual activity. No injury or fall. She went to sleep normal last night. When she woke up this morning she is having pain in her left wrist that stretches up her left forearm toward the elbow. It hurts a lot to move. She does know what happened. Her wrist is not swollen or red. No fever or chills. Not knowing what was wrong with her wrist, she came to the ER. Related Data Home Medications Medication Instructions Recorded Confirmed cyanocobalamin (vitamin B-12) 1,000 mcg subcut .QMONTH 12/30/21 02/20/23 1,000 mcg/mL injection solution mercaptopurine 50 mg tablet 50 mg PO DAILY 12/30/21 02/20/23 hydroxyzine HCl 25 mg tablet 12.5 - 25 mg PO Q6H PRN anxiety 02/20/23 02/20/23 Previous Rx's Medication Instructions Recorded calcium carbonate 500 mg-vitamin 1 tab PO BID #60 tabs 07/27/22 D3 10 mcg (400 unit) tablet (Calcium 500 + D) mirtazapine 15 mg tablet 7.5 mg (1/2 x 15 mg) PO HS #30 tabs 07/27/22 multivitamin with folic acid 400 1 tab PO DAILY #30 tabs 07/27/22 mcg tablet (Thera) Allergies Allergy/AdvReac Type Severity Reaction Status Date / Time No Known Drug Allergies Allergy Verified 02/20/23 11:17 [facility] Medical History Crohn's disease ?K50.90 - Crohn's disease, unspecified, without complications (ICD-10) Protein-calorie malnutrition, moderate ?E44.0 - Moderate protein-calorie malnutrition (ICD-10) Surgical History Do-rectal abscess ?K61.1 - Rectal abscess (ICD-10) H/O ileostomy ?Z98.890 - Other specified postprocedural states (ICD-10) Family History Other Do-rectal abscess Social History Narrative: lives in , single. Never . no children. vapes nicotine/THC. smokes THC prn nausea. no regular alcohol. Smoking Status: Current every day smoker Do you use any of these nicotine containing products: Vaping Products Second hand tobacco smoke exposure: No How often do you have a drink containing alcohol: never How many standard drinks containing alcohol do you have on a typical day: 1 or 2 How often do you have six or more drinks on one occasion: Never AUDIT-C Alcohol total score: 0 Non-prescribed substance use: denies use Caffeine: No service: No Exam Narrative: Exam Narrative: Constitutional: Appears well-developed and well-nourished. Alert. Conversant. Non toxic. HENT: Head: Atraumatic. Nose: Nose normal. Mouth/Throat: Oral mucosa is clear and moist. no trismus. Pharynx normal. Tonsils symmetric. No tonsillar enlargement, erythema, or exudate. Eyes: Conjunctivae normal. EOM normal. Pupils equal, round, and reactive to light. No scleral icterus. Neck: Normal range of motion. Neck supple. No tracheal deviation present. Cardiovascular: Normal rate, regular rhythm. Symmetric radial artery pulses . Normal distal cap refill in the thumb in each finger of the left hand. Pulmonary/Chest: Effort normal. No stridor. No respiratory distress. Musculoskeletal: RUE: Normal range of motion. No tenderness. No deformity LUE: Clavicle, trapezius ridge, shoulder, biceps, triceps, humeral shaft, elbow, medial and lateral epicondyles are normal. No tenderness. Normal range of motion. Proximal 3 force of the forearm are normal. No tenderness. Normal range of motion. Normal pronation and supination but moving the wrist to supination causes pain over the ulnar styloid. She has tenderness without any obvious swelling, bruising, or redness on the ulnar aspect of the wrist especially around the styloid and a little bit on the dorsal aspect of the wrist. No tenderness on the radial side, in the snuffbox, or at the base of the thumb. Range of motion the wrist is limited by pain. No tenderness of the thenar eminence, hypothenar eminence, body of the hand, thumb, or fingers. Intact radial, median, ulnar nerve sensory and motor function. No deformity RLE: Normal range of motion. No edema. No tenderness. No deformity LLE: Normal range of motion. No edema. No tenderness. No deformity Lymph: No ascending lymphangitis Neurological: Alert and oriented to person, place, and time. Normal strength. CN II-VII intact. No sensory deficit. GCS eye subscore is 4. GCS verbal subscore is 5. GCS motor subscore is 6. Normal coordination Skin: Skin is warm and dry. No rash noted. No pallor. Normal capillary refill. Psychiatric: Normal mood. Normal affect. Const: Vital Signs, click to edit/add: Vital Signs - 24 hr 02/20/23 11:08 02/20/23 13:16 Temperature 98.4 F Pulse Rate [Pulse Oximeter] 102 H 87 Respiratory Rate 16 16 Blood Pressure [Ri ght Upper Arm] 100/77 Pulse Oximetry 99 96 Oxygen Delivery Me thod Room Air Room Air Course Vital Signs Vital signs: Initial Vital Signs Temperature 98.4 F 02/20/23 11:08 Temperature Source Temporal Artery Scan 02/20/23 11:08 Pulse Rate 102 H 02/20/23 11:08 Respiratory Rate 16 02/20/23 11:08 Blood Pressure 100/77 02/20/23 11:08 Blood Pressure Mean 84 02/20/23 11:08 Blood Pressure Position Sitting 02/20/23 11:08 Pulse Oximetry 99 02/20/23 11:08 Oxygen Delivery Method Room Air 02/20/23 11:08 Vital Signs Temperature 98.4 F 02/20/23 11:08 Pulse Rate 102 H 02/20/23 11:08 Respiratory Rate 16 02/20/23 11:08 Blood Pressure 100/77 02/20/23 11:08 Pulse Oximetry 99 02/20/23 11:08 Oxygen Delivery Method Room Air 02/20/23 11:08 Temperature 98.4 F 02/20/23 11:08 Pulse Rate 87 02/20/23 13:16 Respiratory Rate 16 02/20/23 13:16 Blood Pressure 100/77 02/20/23 11:08 Pulse Oximetry 96 02/20/23 13:16 Oxygen Delivery Method Room Air 02/20/23 13:16 Medications Administered Medications: Discontinued Medications Generic Name Dose Route Start Last Admin Trade Name Nando PRN Reason Stop Dose Admin Ibuprofen 600 mg 02/20/23 12:00 02/20/23 11:53 Ibuprofen 200 Mg Tablet PO 02/20/23 12:01 600 mg ONCE ONE Administration Medical Decision Making MDM Narrative Medical decision making narrative: Very pleasant 22-year-old female with history of Crohn's disease presents to the ER today with left wrist pain involving the ulnar aspect of her left wrist that began overnight last night and this morning. 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 X-rays are obtained are fortunately negative for any evidence for acute fracture, dislocation, or perilunate dislocation. No evidence for stress fracture. Differential for her wrist pain would include DVT but there is no other swelling of the arm so I do not think DVT is present. No evidence for acute arterial ischemia. Consider possible infection since she does have Crohn's and is on into the 0. However no warmth, redness, fever, chills, or other infection symptoms. At this point with no swelling or any appreciable effusion I do not think that arthrocentesis is indicated, patient agrees. We suspect that this may be a tendonitis or overuse injury because she does a lot of carrying of heavy trays at work with her wrist extended forcefully holding a tray. Will place her into a wrist place. Will do a short course of NSAIDs. Will recommend close outpatient follow-up with orthopedic clinic for re- evaluation. She may need wrist MRI and/or steroid injection if not improving with conservative therapy. Precautions for return to the ER with increasing pain, worsening swelling, any redness or fever, or any other concerns. Patient agrees and understands. Imaging Data xr wrist: Attestation: I have reviewed the pertinent imaging results. Radiologist's impression: Impression: No sign of acute injury in the left wrist. Discharge Plan Discharge Clinical Impression: Acute wrist pain Patient Disposition: Home, Self-Care Condition: Stable Instructions: Wrist Injury (ED) Additional Instructions: Please come back to the ER right away if you have worsening pain, increasing swelling, redness or bruising of your wrist, high fever, or any concerns. Call the [place] [facility] at [phone] to schedule a follow-up appointment within 2-4 days. See with the orthopedic clinic if your not improved. Prescriptions: No Action mercaptopurine 50 mg tablet 50 mg PO DAILY cyanocobalamin (vitamin B-12) 1,000 mcg/mL solution 1,000 mcg subcut .QMONTH calcium carbonate-vitamin D3 [Calcium 500 + D] 500 mg-10 mcg (400 unit) tablet 1 tab PO BID Qty: 60 0RF mirtazapine 15 mg Tablet 7.5 mg PO HS Qty: 30 0RF multivitamin with folic acid [Thera] 400 mcg Tablet 1 tab PO DAILY Qty: 30 0RF hydroxyzine HCl 25 mg tablet 12.5 - 25 mg PO Q6H PRN (Reason: anxiety) Follow Up/Referrals: Provider,Not a Local [Primary Care Provider] - Stand Alone Forms: [employer] Info Instructions
--- NOTE | 2023-02-20 11:46 | CRLHL7_ITS ---
For Patients: As a result of the Century Cures Act, medical imaging exams and procedure reports are released immediately into your electronic medical record. You may view this report before your referring provider. If you have questions, please contact your health care provider. Indication: Injury and pain Technique: Left wrist 3 view Comparison: None Findings: Bones: Alignment is normal. No fractures or bone lesions. Joint spaces: Unremarkable. Soft tissues: Unremarkable. Impression: No sign of acute injury in the left wrist. Dictated by Jameel High MD @ 02/20/2023 12:22:17 PM (Electronically Signed)
[2023-02-20] MEDS: IBUPROFEN 200 MG TABLET 600 MG PO (11:53)
[2023-02-20 13:16] VITALS: PULSE 87; RESP 16; O2SAT 96
== END 2023-02-20 13:17 | disposition home or self-care (01) ==
PROVIDERS: Emergency Provider Emergency Medicine
DX: M25.532 Pain in left wrist (principal); X50.3XXA Overexertion from repetitive movements, initial encounter
CPT/HCPCS: 29125; 73110; 99283; A9270

== ENCOUNTER 2024-04-02 05:58 | Emergency (ER) | payer BC, SELFPAY ==
--- OUTSIDE RECORDS SUMMARY | 2024-04-02 06:00 | XMS_ITS | Continuity of Care Document ---
Author Name [facility] Address Unknown Organization Unknown Address Unknown Procedures FILTER APPLIED:Only known Procedures with Onset Date within the last 5 years Procedure Date Procedure Provider Additional Inform ation Status X-RAY EXAM OF WRIST (53489) Completed EMERGENCY DEPT VISIT LOW MDM (28128) Completed APPLY FOREARM SPLINT (70816) Completed Encounters FILTER APPLIED:Only known Encounters with Admission Date within the last 5 years Encounter Location Admission Discharge Billing Code [facility]
--- OUTSIDE RECORDS SUMMARY | 2024-04-02 06:00 | XMS_ITS | Clinical Summary ---
Author Organization [facility] Address [address] [place] [address]. [place] [address] Care Team Providers Care Sheet Metal Technician Name Role Phone No Ref-Primary, Physician Primary Care Provider Allergies No known active allergies Medications mercaptopurine (PURINETHOL) 50 MG tablet Take 50 mg by mouth daily Active calcium carbonate-vitamin D (OSCAL) 500-5 MG-MCG tablet Take 1 tablet by mouth 2 times daily Active sodium chloride 0.9 % SOLN 250 mL with vedolizumab 60 MG/ML SOLR 300 mg infusionn Inject 300 mg into the vein once 300mg IV every 6 weeks Due 07/30/22 [facility] Active gabapentin (NEURONTIN) 300 MG capsule Take 300 mg by mouth 2 times daily Active mirtazapine (REMERON) 15 MG tablet Take 7.5 mg by mouth At Bedtime Active multivitamin w/minerals (MULTI-VITAMIN) tablet Take 1 tablet by mouth daily Active ergocalciferol (ERGOCALCIFEROL) 1.25 MG (70243 UT) capsule Take 50,000 Units by mouth once a week Doesn't have a specific day Active oxyCODONE (ROXICODONE) 5 MG tablet Take 5 mg by mouth every 6 hours as needed for severe pain Active predniSONE (DELTASONE) 10 MG tabletIndications:Cr ohn's disease with complication, unspecified gastrointestinal tract location (H) Including prednisone already given during this admission, begin/continue prednisone taper per GI as follows: Take 40 mg x 7 days, Take 35 mg x 7 days, Take 30 mg x 7 days, Take 25 mg x 7 days, Take 20 mg x 7 days, Take 15 mg x 7 days, Take 10 mg x 7 days, Take 5 mg x 7 days, then stop. 126 tablet 08/05/19 Active HYDROmorphone (DILAUDID) 2 MG tabletIndications:Cr ohn's disease of small intestine with complication (H) Take 1 tablet (2 mg) by mouth every 6 hours as needed for moderate pain or severe pain 15 tablet 08/23/19 23 Active Active Problems Problem Noted Date Diagnosed Date Small bowel obstruction 08/05/2022 Crohn's disease of small intestine with complica tion 08/05/2022 SBO (small bowel obstruction) 07/28/2022 Major depressive disorder, r ecurrent episode, in partial remission 07/28/2022 Crohn's disease 07/28/2022 Generalized anxiety disorder 07/28/2022 Lumbar radiculopathy 07/28/2022 Overview (07/28/2022): L5-S1 mild annular buldge MRI 07/26/22 Protein-calorie malnutrition 07/28/2022 Anal fistula 03/30/2022 Hypokalemia 03/30/2022 History of Crohn's disease 03/30/2022 Nausea vomiting and diarrhea 03/30/2022 Immunizations Name Administration Dates Next Due Influenza,INJ,MDCK,PF,Quad >6mo(Flucelvax) 01/21 Family History Medical History Relation Comments No Known Problems Father No Known Problems Mother Relation Status Comments Father Mother Social History Tobacco Use Types Packs/Day Years Used Date Smoking Tobacco: Never Smokeless Tobacco: Never Tobacco Cessation:Counseling Given: Not Answered Alcohol Use Standard Drinks/Week Comments Never 0 (1 standard drink = 0.6 oz pur e alcohol) Adolescent Education Answer Date Record ed Getting School Help Needed Not on file 12/31 Comments No Sex and Gender Information Value Date Recorded Sex Assigned at Male 08/21/2022 3:08 PM CDT Legal Sex Female 4:18 AM [employer]ILER[employer] Gender Identity Male 08/21/2022 3:08 PM CDT Sexual Orientation Not on file Last Filed Vital Signs Vital Sign Reading Time Taken Comments Blood Pressure 100/59 08/22/2022 4:10 PM CDT Pulse 79 08/22/2022 4:10 PM CDT Temperature 36.7 C (98.1 F) 08/22/2022 4:10 PM CDT Respiratory Rate 16 08/22/2022 4:10 PM CDT Oxygen Saturation 99% 08/22/2022 4:10 PM CDT Inhaled Oxygen Concentration - - Weight 42.2 kg (93 lb) 08/21/2022 5:43 AM CDT Height 157.5 cm (5' 2) 08/21/2022 5:43 AM CDT Body Mass Index 17.01 08/21/2022 5:43 AM CDT Plan of Treatment Health Maintenance Due Date Last Done Comments ANNUAL REVIEW OF HM ORDERS 2000 DEPRESSION ACTION PLAN 2000 PHQ-9 2000 YEARLY PREVENTIVE VISIT 10/02/2003 COVID-19 Vaccine (#1) 2005 HPV IMMUNIZATION (1 - 3-dose series) 10/02/2015 MENINGITIS B IMMUNIZATION (1 of 2 - Standard) 2016 Pneumococcal Vaccine: Pediatrics (0 to 5 Years) and At-Risk Patients (6 to 49 Years) (2 of 2 - PCV) 06/28/2021 06/28/2020, 01/01/2002, 04/07/2001, Additional history exists DTAP/TDAP/TD IMMUNIZATION (7 - Td or Tdap) 10/28/2022 10/28/2012, 06/21/2005, 01/01/2002, Additional history exists INFLUENZA VACCINE (#1) 2023 , 01/18/2020, 01/25/2019 CHLAMYDIA SCREENING 09/24/2024 09/25/2023 ADVANCE CARE PLANNING 03/29/2027 03/29/2022 RSV VACCINE (1 - 1-dose 75+ series) 10/02/2075 MENINGITIS IMMUNIZATION Aged Out 10/28/2012 No l onger eligible based on patient's age to complete this topic HEPATITIS B IMMUNIZATION Completed 020, 01/26/2020, 09/04/2001, Additional history exists HEPATITIS C SCREENING Completed 09/25/2023 HIV SCREENING Completed 09/25/2023 RSV MONOCLONAL ANTIBODY Aged Out No l onger eligible based on patient's age to complete this topic Procedures Procedure Name Priority Date/Time Associated Diagnosis Comments HIV ANTIGEN ANTIBODY COMBO Routine 09/25/2023 12:04 PM CDT Encounter for screening for infections with a predominantly sexual mode of transmission HEPATITIS C SCREEN REFLEX TO HCV RNA QUANT AND GENOTYPE Routine 09/25/2023 12:04 PM CDT Encounter for screening for infections with a predominantly sexual mode of transmission CHLAMYDIA TRACHOMATIS/NEISSERI A GONORRHOEAE BY PCR Routine 09/25/2023 11:01 AM CDT Encounter for screening for infections with a predominantly sexual mode of transmission from Last 3 Months or Most Recently Relevant to Health Maintenance Results * HIV Antigen Antibody Combo [place] (09/25/2023 12:04 PM CDT) HIV Antigen Antibody Combo Nonreactive Nonreactive 09/25/2023 5:12 PM CDT [facility] Comment:Negative HIV-1 p24 a ntigen and HIV-1/2 antibody screening test results usually indicate the absence of HIV-1 and HIV-2 infection. However, such negative results do not rule-out acute HIV infection. If acute HIV-1 or HIV-2 infection is suspected, detection of HIV-1 or HIV-2 RNA is recommended. Blood BLOOD SPECIMEN / Unknown Client Draw / Unknown 09/25/2023 12:04 PM CDT 09/25/2023 3:50 PM CDT us Stacy Horn MD LAB - BLOOD ORDERABLES Final R esult [facility] [place] [facility] [address] [facility], [address] [place] [address], [facility] * Hepatitis C Screen Reflex to HCV RNA Quant and Genotype (09/25/2023 12:04 PM CDT) Hepatitis C Antibody Nonreactive Nonreactive 09/25/2023 8:50 PM CDT [facility] Comment:A nonreactive screen ing test result does not exclude the possibility of exposure to or infection with HCV. Nonreactive screening test results in individuals with prior exposure to HCV may be due to antibody levels below the limit of detection of this assay or lack of reactivity to the HCV antigens used in this assay. Patients with recent HCV infections (<3 months from time of exposure) may have false- negative HCV antibody results due to the time needed for seroconversion (average of 8 to 9 weeks). Blood BLOOD SPECIMEN / Unknown Client Draw / Unknown 09/25/2023 12:04 PM CDT 09/25/2023 3:50 PM CDT us Stacy Horn MD LAB - BLOOD ORDERABLES Final R esult [facility] [place] [facility] [address] [place] [address], [address] [phone] * Chlamydia trachomatis/Neisseria gonorrhoeae by PCR (09/25/2023 11:01 AM CDT) Pathologist [facility] Chlamydia Trachomatis Negative Negative 09/26/2023 2:16 PM CDT [facility] Comment: Negative for C. trachomatis rRNA by machine lay out worker mediated amplification. A negative result by machine lay out worker mediated amplification does not preclude the presence of infection because results are dependent on proper and adequate collection, absence of inhibitors and sufficient rRNA to be detected. Neisseria gonorrhoeae Negative Negative 09/26/2023 2:16 PM CDT [facility] Comment:Negative for N. gono rrhoeae rRNA by machine lay out worker mediated amplification. A negative result by machine lay out worker mediated amplification does not preclude the presence of C. trachomatis infection because results are dependent on proper and adequate collection, absence of inhibitors and sufficient rRNA to be detected. Swab CERVIX UTERI STRUCTURE / Unknown Non-blood Collection / Unknown 09/25/2023 11:01 AM CDT 09/25/2023 3:51 PM CDT us Stacy Horn MD LAB - MICRO GENERAL ORDERABLES Final Result [facility] Inf. Diseases Diag. Lab [address] [facility] [place] [address], [facility] from Last 3 Months or Most Recently Relevant to Health Maintenance Insurance [facility] Advance Directives For more information, please contact: [phone] Documents on File Type Date Recorded Patient Stereotyper Helper Expl anation Advance Directives and Living Will 03/29/2022 Health Care Directiv e 03/29/2022 * Full Code (Latest Code Status on File) Date Activated Date Inactivated Comments 08/05/2022 6:37 PM 08/22/2022 8:04 PM All basic and advanced life-sustaining interventions are performed as appropriate Question Answer Comments Code status determined by: Discussion with patie nt/ legal decision maker * Full Code Date Activated Date Inactivated Comments 08/04/2022 1:39 PM 08/05/2022 1:17 PM Question Answer Comments Code status determined by: Discussion with patie nt/ legal decision maker * Full Code Date Activated Date Inactivated Comments 07/28/2022 8:24 PM 08/04/2022 1:39 PM All basic an d advanced life-sustaining interventions are performed as appropriate Question Answer Comments Code status determined by: Discussion with patie nt/ legal decision maker * Full Code Date Activated Date Inactivated Comments 04/02/2022 10:29 AM 07/28/2022 7:07 PM Question Answer Comments Code status determined by: Discussion with patie nt/ legal decision maker * Full Code Date Activated Date Inactivated Comments 03/28/2022 6:37 PM 04/02/2022 10:29 AM All basic a nd advanced life-sustaining interventions are performed as appropriate Question Answer Comments Code status determined by: Discussion with patie nt/ legal decision maker Healthcare Agents on File Name Relationship Healthcare Agent [facility] genesis Communication Gabrielle Edgabinoom Mother First Alternate Health Care Agent Dion Welsh Sister Health Care Agent Baltazar Briseno Father Second Alternate Health Ca re Agent Care Teams Sheet Metal Technician Relationship Specialty Start Date End Date No Ref-Primary, Physician PCP - General 07/29/22
--- OUTSIDE RECORDS SUMMARY | 2024-04-02 06:00 | XMS_ITS | Clinical Summary ---
Author Organization [facility] Address [place], [place] [address] Care Team Providers Care District Captain Name Role Phone Анна Nowak DO Primary Care Provider [phone] Allergies Active Allergy Reactions Criticality Noted Date Comments Blood-Group Specific Substance Other - Describe In Comment Field 04/05/2022 Patient has a Suggestive Warm Auto antibody. Blood products may be delayed. Draw patient 24 hours prior to transfusion. For Snaptalent testing, draw one red top and two purple top tubes for all Type and Screen orders. Medications mercaptopurine (PURINETHOL) 50 mg tablet 8 Active iron bisgly,ps-FA-B-C#12 -succ 65 mg-65 mg -1,000 mcg (24) tab Take by mouth 3 times daily. 0 8 Active Calcium Cb 2-Mag Cb 12-Vit D3 500-250-200 mg-mg-unit tab Take by mouth 2 times daily. 0 8 Active multivitamin chew Take by mouth once daily. 0 8 Active ergocalciferol (VITAMIN D2; DRISDOL) 50,000 unit capsule take 1 capsule by oral route every week for 8 weeks 2 Active omeprazole (PRILOSEC) 40 mg Delayed-Release capsule Take 40 mg by mouth once daily before a meal. 2 Active ondansetron (ZOFRAN ODT) 4 mg disintegrating tablet 3 Active mirtazapine (REMERON) 15 mg tablet Take 7.5 mg by mouth at bedtime. Active lidocaine 5 % topical patch 3 Active gabapentin (NEURONTIN) 300 mg capsule Take 300 mg by mouth two times daily. 3 Active hydrOXYzine HCL (ATARAX) 25 mg tabletIndications:A nxiety,Insomnia, idiopathic Take 0.5-1 tablet for anxiety as needed every 6 hours or before sleep 40 Tablet 3 Active valACYclovir (Valtrex) 500 mg tabletIndications:H erpes simplex Take 4 tabs by mouth at onset of lesion, then 12 hours later, 4 more. And may take 1 tab daily for supression. 8 Tablet 4 Active Active Problems Problem Noted Date Diagnosed Date Tobacco abuse 02/14/2022 Crohn's disease with complication 02/14/2022 Myopia of both eyes 02/02/2018 Resolved Problems Problem Noted Date Diagnosed Date Resolved Date Diarrhea 12/09/2011 02/14/2022 Immunizations Name Administration Dates Next Due DTaP 06/21/2005, 2,04/07/2001,02/12,2000 HIB HbOC (HibTITER) 04/07/2001,02/12/2001,2000 HIB PRP-T (ActHIB,Hiberix) 01/01/2002 HepA-HepB (Twinrix) 02/23/2020,01/26/2020 Hepatitis B (Peds) 09/04/2001,02/12/2001, 001 Inactivated Polio Vaccine 01/01/2002,,02/12/2001,12/03 Influenza, IIV4 01/18/2020,01/25/2019 Influenza,CCIIV4 PRESERV FREE 01/21/2022 MMR 06/21/2005,01/01/2002 Meningococcal Vaccine (Menactra) 10/28/2012 Pneumococcal Poly,23-Valent (Pneumovax) 06/28/2020 Pneumococcal conj 7-Valent (Prevnar 7) 1 ,04/07/2001,02/12/2001,12/03 Tdap 10/28/2012 Varicella Vaccine 10/28/2012,08/27/2002 Social History Tobacco Use Types Packs/Day Years Used Date Smoking Tobacco: Former Cigarettes Q uit: 03/18/2022 Smokeless Tobacco: Current Tobacco Cessation:Ready to Q uit: Not Asked; Counseling Given: No Comments:mom smokes outside Alcohol Use Standard Drinks/Week Comments No 0 (1 standard drink = 0.6 oz pur e alcohol) PHQ-2 Answer Date Recorded PHQ-2 TOTAL SCORE 2 08/27/2022 Social Connections Answer Date Recorded Frequency of Communication with Friends and Fami ly Not on file 02/12/2022 Comments No Sex and Gender Information Value Date Recorded Sex Assigned at Not on file Legal Sex Female 8:38 AM CAT SCANNER OPERATOR Gender Identity Not on file Sexual Orientation Not on file Obstetrics History Last Filed Vital Signs Vital Sign Reading Time Taken Comments Blood Pressure 89/57 09/25/2022 9:00 AM CDT Pulse 97 09/25/2022 9:00 AM CDT Temperature 36.4 C (97.6 F) 02/20/2022 8:43 AM CAT SCANNER OPERATOR Respiratory Rate 14 06/17/2022 8:47 AM CDT Oxygen Saturation 99% 09/25/2022 9:00 AM CDT Inhaled Oxygen Concentration - - Weight 45 kg (99 lb 3.2 oz) 09/25/2022 9:00 AM C DT Height 160 cm (5' 2.99) 08/27/2022 9:12 AM CDT Body Mass Index 17.58 08/27/2022 9:12 AM CDT Plan of Treatment Health Maintenance Due Date Last Done Comments COVID-19 vaccine series (#1) 2005 HPV series for age 9-26 (1 - Risk 3-dose series) 10/02/2011 HIV for age 15-65 10/02/2015 Chlamydia for age 16-24 2016 Hepatitis C screening for age 18-79 2018 Pap test for age 21-65 2021 Tetanus booster 10/28/2022 10/28/2012 BMI (ht and wt on same day) for age 18+ 08/28/2023 08/27/2022, 06/17/2022, 03/18/2022 Depression screening for age 12+ 08/30/2023 08/29/2022, 08/27/2022, 07/25/2022 Influenza for age 9-49 11/16/2023 , 01/18/2020, 01/25/2019 Tdap Completed 10/28/2012 Pneumococcal series for age 6-49 Aged Out 06/28/2020, 01/01/2002, 04/07/2001, Additional history exists No longer eligible based on patient's age to complete this topic Insurance [id number] [facility] [place] [id number] [facility] Care Teams District Captain Relationship Specialty Start Date End Date Анна Nowak DO [address] [place] [address] PCP - General Family Practice 08/26/22
--- OUTSIDE RECORDS SUMMARY | 2024-04-02 06:01 | XMS_ITS | Referral Summary ---
Author Organization [facility] Address [address] [place] [address]. [place] [address] Care Team Providers Care Rn Bone Marrow Transplant Name Role Phone No Ref-Primary, Physician Primary [...] mouth daily Active ergocalciferol (ERGOCALCIFEROL) 1.25 MG (25025 UT) capsule Take 50,000 Units by mouth [...] pain or severe pain 15 tablet 08/23/19 Active Active Problems Problem Noted Date Diagnosed [...] Administration Dates Next Due Influenza,INJ,MDCK,PF,Quad >6mo(Flucelvax) 01/21 Social History Tobacco Use Types Packs/Day Years [...] PM CDT Legal Sex Female 4:18 AM REFORMATORY ATTENDANT Gender Identity Male 08/21/2022 3:08 PM CDT [...] 08/21/2022 5:43 AM CDT Plan of Treatment Not on file Procedures Procedure Name Priority Date/Time Associated Diagnosis [...] Maintenance Results * HIV Antigen Antibody Combo [place] (09/25/2023 12:04 PM CDT) [facility] HIV Antigen Antibody Combo Nonreactive Nonreactive 09/25/2023 5:12 PM CDT [facility] Comment:Negative HIV-1 p24 a ntigen and [...] 12:04 PM CDT 09/25/2023 3:50 PM CDT Stacy Horn MD LAB - BLOOD ORDERABLES Final R esult LABORATORY [facility] [place] [facility] [address], [address] [id number] * Hepatitis C Screen Reflex to HCV RNA Quant and Genotype (09/25/2023 12:04 PM CDT) Pathologist [facility] Hepatitis C Antibody Nonreactive Nonreactive 09/25/2023 8:50 [...] 12:04 PM CDT 09/25/2023 3:50 PM CDT Stacy Horn MD LAB - BLOOD ORDERABLES Final R esult LABORATORY [facility] [place] [facility] [address], [address] [phone] * Chlamydia trachomatis/Neisseria gonorrhoeae by PCR (09/25/2023 11:01 AM CDT) Pathologist [facility] Chlamydia Trachomatis Negative Negative 09/26/2023 2:16 PM CDT [facility] Comment: Negative for C. trachomatis rRNA by flexographic printing press operator mediated amplification. A negative result by flexographic printing press operator mediated amplification does not preclude the presence of infection because results are dependent on proper and adequate collection, absence of inhibitors and sufficient rRNA to be detected. Neisseria gonorrhoeae Negative Negative 09/26/2023 2:16 PM CDT [facility] Comment:Negative for N. gono rrhoeae rRNA by flexographic printing press operator mediated amplification. A negative result by flexographic printing press operator mediated amplification does not preclude the presence of C. trachomatis infection because results are dependent on proper and adequate collection, absence of inhibitors and sufficient rRNA to be detected. Swab CERVIX UTERI STRUCTURE / Unknown Non-blood Collection / Unknown 09/25/2023 11:01 AM CDT 09/25/2023 3:51 PM CDT us Stacy Horn MD LAB - MICRO GENERAL ORDERABLES Final Result [facility] Inf. Diseases Diag. Lab [address] [facility], [address] [place] [phone] from Last 3 Months or Most Recently Relevant to Health Maintenance Insurance [facility] Advance Directives For more information, please contact: [phone] Documents on File Type Date Recorded Patient Personnel Administrator Expl anation Advance Directives and Living Will [...] Agents on File Name Relationship Healthcare Agent [facility] Communication Gabrielle Edblom Mother First Alternate Health Care Agent Dion Blaise Sister Health Care Agent Baltazar Briseno Father Second Alternate Health Ca re Agent Care Teams Rn Bone Marrow Transplant Relationship Specialty Start Date End Date No Ref-Primary, Physician PCP - General 07/29/22
--- OUTSIDE RECORDS SUMMARY | 2024-04-02 06:01 | XMS_ITS | Encounter Summary ---
Author Organization [facility] Address [address] [place] [address]. [place] [address] Care Team Providers Care Projector Operator Name Role Phone No Ref-Primary, Physician Primary Care Provider Encounter Details Date Type Department Care Team (Late st Contact Info) Description 07/28/2022 [facility] Services - General Medicine & Pediatrics [address] [place] [id number] Monty Garibay APRN EVAPORATOR OPERATOR [address] [place] [address] Social History Tobacco Use Types Packs/Day Years Used Date Smoking Tobacco: Never Smokeless Tobacco: Never Alcohol Use Standard Drinks/Week Comments Never 0 (1 standard drink = 0.6 oz pur e alcohol) Comments No Sex and Gender Information Value Date Recorded Sex Assigned at Male 08/21/2022 3:08 PM CDT Legal Sex Female 4:18 AM SUPERVISOR 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 On logics (Entyvio in 6-merecaptopurine), recent steroids for back pain resents to outside hospital ([facility]) for evaluation of sudden onset of abdominal pain and distention for [id number] hours. Noted to be mildly hypotensive with a systolic blood pressure of 90/50 (per report noted to be nearher baseline) and tachycardic with a heart rate in the 100s to the 110s. Afebrile. Labs: Leukocytosis with a white cell count of 21,000, lactic acid of 2.6. CMP and lipase within normal limits. Imaging: Small bowel obstruction with a transition point at the ileocecectomy site. Treatment: 1 L normal saline, ertapenem, NG tube placed. Being transferred to [facility] for definitive care. Known to [facility]. Monty Garibay APRN EVAPORATOR OPERATOR documented in this encounter Plan of Treatment Not on file documented as of this encounter Visit Diagnoses Not on filedocumented in this encounter Additional Health Concerns Infection Onset Date Last Indicated Resolved Time Rule Out C-difficile 08/03/2022 08/04/2022 023 11:39 AM CDT documented as of this encounter Care Teams Projector Operator Relationship Specialty Start Date End Date No Ref-Primary, Physician PCP - General 07/29/22 documented as of this encounter
[2024-04-02 06:03] VITALS: BP 102/63; PULSE 98; RESP 16; TEMP 36.6; O2SAT 100; BMI 21.6
[2024-04-02] MEDS: GI COCKTAIL (VISC LIDO/ANTACID) 30 ML PO (06:40)
--- NOTE | 2024-04-02 06:40 | ED.GENADULT ---
HPI - General Adult General Date Seen: 04/02/24 <Amilcar Doll MD - Last Filed: 04/04/24 23:11> Chief complaint: Chest Pain <Amilcar Doll MD - Last Filed: 04/04/24 23:11> Stated complaint: chest pain 12 hrs plus <Amilcar Doll MD - Last Filed: 04/04/24 23:11> Time Seen by Provider: 04/02/24 06:17 <Amilcar Doll MD - Last Filed: 04/04/24 23:11> Source: patient <Amilcar Doll MD - Last Filed: 04/04/24 23:11> Mode of arrival: ambulatory <Amilcar Doll MD - Last Filed: 04/04/24 23:11> Limitations: no limitations <Amilcar Doll MD - Last Filed: 04/04/24 23:11> History of Present Illness HPI narrative: Patient is a 23-year-old female who has had some epigastric and chest pain for about the past 12 hours. She did not eat anything unusual yesterday. She denies history of acid reflux. She does have Crohn's disease and received an infusion yesterday along with a B12 shot. She had eggs and toast for breakfast, a sandwich for lunch and a wrap for supper. She was able to work last evening. She is not a smoker. No fevers or chills. She has had some nausea but no vomiting. No diarrhea. The pain is worse when she lies flat and better if she sits up. She tried some cough syrup which did not help. She has not tried any type of antacid. <Amilcar Doll MD - Last Filed: 04/04/24 23:11> Related Data Home medications: Home Medications ?Medication ?Instructions ?Recorded ?Confirmed cyanocobalamin (vitamin B-12) 1,000 mcg subcut .QMONTH 12/30/21 12/31/23 1,000 mcg/mL injection solution mercaptopurine 50 mg tablet 50 mg PO DAILY 12/30/21 12/31/23 hydroxyzine HCl 25 mg tablet 12.5 - 25 mg PO Q6H PRN anxiety 02/20/23 12/31/23 vedolizumab 108 mg/0.68 mL 108 mg subcut MONTHLY 12/31/23 12/31/23 subcutaneous pen injector (Entyvio Pen) Previous Rx's ?Medication ?Instructions ?Recorded calcium 500 mg (as 1 tab PO BID #60 tabs 07/27/22 carbonate)-vitamin D3 10 mcg (400 unit) tablet (Calcium 500 + D) mirtazapine 15 mg tablet 7.5 mg (1/2 x 15 mg) PO HS #30 tabs 07/27/22 multivitamin with folic acid 400 1 tab PO DAILY #30 tabs 07/27/22 mcg tablet (Thera) benzonatate 100 mg capsule 100 mg PO TID PRN cough #20 caps 12/31/23 <Amilcar Doll MD - Last Filed: 04/04/24 23:11> Allergies/adverse reactions: Allergies Allergy/AdvReac Type Severity Reaction Status Date / Time No Known Drug Allergies Allergy Verified 04/02/24 06:06 <Amilcar Doll MD - Last Filed: 04/04/24 23:11> Review of Systems Narrative: Review of systems is as outlined above otherwise noted to be negative. <Amilcar Doll MD - Last Filed: 04/04/24 23:11> [facility] Medical History: Medical History Crohn's disease ?K50.90 - Crohn's disease, unspecified, without complications (ICD-10) Protein-calorie malnutrition, moderate ?E44.0 - Moderate protein-calorie malnutrition (ICD-10) <Amilcar Doll MD - Last Filed: 04/04/24 23:11> Surgical History: Surgical History Do-rectal abscess ?K61.1 - Rectal abscess (ICD-10) H/O ileostomy ?Z98.890 - Other specified postprocedural states (ICD-10) <Amilcar Doll MD - Last Filed: 04/04/24 23:11> Family History: Family History Other Do-rectal abscess <Amilcar Doll MD - Last Filed: 04/04/24 23:11> Social History: Social History Narrative: lives in , single. Never . no children. vapes nicotine/THC. smokes THC prn nausea. no regular alcohol. Smoking Status: Current every day smoker Do you use any of these nicotine containing products: Vaping Products Second hand tobacco smoke exposure: No How often do you have a drink containing alcohol: never How many standard drinks containing alcohol do you have on a typical day: 1 or 2 How often do you have six or more drinks on one occasion: Never AUDIT-C Alcohol total score: 0 Non-prescribed substance use: denies use Caffeine: No service: No <Amilcar Doll MD - Last Filed: 04/04/24 23:11> Exam Narrative: Exam Narrative: Vitals noted. HEENT: Conjunctiva clear. Tympanic membranes are pearly white bilaterally. Posterior pharynx is clear without erythema or exudate. Neck is supple without adenopathy, thyromegaly, carotid bruit. Lungs: Clear to auscultation in all bardales. No wheezes, rales, rhonchi. Heart: Regular rate and rhythm without murmur. Abdomen: Soft with mild epigastric tenderness. No guarding, rigidity, rebound. Bowel sounds are normal. No palpable masses. Extremities: No cyanosis or edema. Good distal pulses. Skin: No abnormalities noted of the exposed skin. Neurologic: Awake, alert, fully oriented. Neurologic exam is nonfocal. <Amilcar Doll MD - Last Filed: 04/04/24 23:11> Const: Vital Signs, click to edit/add: Vital Signs - 24 hr 04/02/24 06:03 04/02/24 07:20 Temperature 97.9 F Pulse Rate [Right Pulse Oximeter] 98 70 Respiratory Rate 16 16 Blood Pressure [Ri ght Upper Arm] 102/63 94/70 Pulse Oximetry 100 99 Oxygen Delivery Me thod Room Air Room Air <Amilcar Doll MD - Last Filed: 04/04/24 23:11> Vital Signs, click to edit/add: Vital Signs - 24 hr 04/02/24 06:03 04/02/24 07:20 Temperature 97.9 F Pulse Rate [Right Pulse Oximeter] 98 70 Respiratory Rate 16 16 Blood Pressure [Ri ght Upper Arm] 102/63 94/70 Pulse Oximetry 100 99 Oxygen Delivery Me thod Room Air Room Air <Hang Mena MD - Last Filed: 04/02/24 08:38> Course Course ED Course: Patient is seen and examined. GI cocktail is provided. Labs are ordered. <Amilcar Doll MD - Last Filed: 04/04/24 23:11> Reevaluation(s) Reevaluation #1: The GI cocktail did not provide any relief. CBC shows a hemoglobin of 10.4 with an MCV of 82. She has previously required blood transfusion and iron infusion. She does not recall what her last hemoglobin was. Basic metabolic panel is normal. LFTs show some minor abnormalities. AST is 38, ALT is 50, alk-phos is 161. Lipase is mildly elevated at 485. CT of the abdomen and pelvis is ordered. I did give her one Percocet to help with her pain. She denies any significant alcohol intake. Her care is turned over to Dr. Mena at change of shift. <Amilcar Doll MD - Last Filed: 04/04/24 23:11> Vital Signs Vital signs: Initial Vital Signs Temperature 97.9 F 04/02/24 06:03 Temperature Source Temporal Artery Scan 04/02/24 06:03 Pulse Rate 98 04/02/24 06:03 Pulse Rhythm Regular 04/02/24 06:03 Pulse Strength 3+ Normal 04/02/24 06:03 Respiratory Rate 16 04/02/24 06:03 Blood Pressure 102/63 04/02/24 06:03 Blood Pressure Mean 76 04/02/24 06:03 Blood Pressure Position Sitting 04/02/24 06:03 Pulse Oximetry 100 04/02/24 06:03 Oxygen Delivery Method Room Air 04/02/24 06:03 Vital Signs Temperature 97.9 F 04/02/24 06:03 Pulse Rate 98 04/02/24 06:03 Respiratory Rate 16 04/02/24 06:03 Blood Pressure 102/63 04/02/24 06:03 Pulse Oximetry 100 04/02/24 06:03 Oxygen Delivery Method Room Air 04/02/24 06:03 Temperature 97.9 F 04/02/24 06:03 Pulse Rate 70 04/02/24 07:20 Respiratory Rate 16 04/02/24 07:20 Blood Pressure 94/70 04/02/24 07:20 Pulse Oximetry 99 04/02/24 07:20 Oxygen Delivery Method Room Air 04/02/24 07:20 <Amilcar Doll MD - Last Filed: 04/04/24 23:11> Initial Vital Signs Temperature 97.9 F 04/02/24 06:03 Temperature Source Temporal Artery Scan 04/02/24 06:03 Pulse Rate 98 04/02/24 06:03 Pulse Rhythm Regular 04/02/24 06:03 Pulse Strength 3+ Normal 04/02/24 06:03 Respiratory Rate 16 04/02/24 06:03 Blood Pressure 102/63 04/02/24 06:03 Blood Pressure Mean 76 04/02/24 06:03 Blood Pressure Position Sitting 04/02/24 06:03 Pulse Oximetry 100 04/02/24 06:03 Oxygen Delivery Method Room Air 04/02/24 06:03 Vital Signs Temperature 97.9 F 04/02/24 06:03 Pulse Rate 98 04/02/24 06:03 Respiratory Rate 16 04/02/24 06:03 Blood Pressure 102/63 04/02/24 06:03 Pulse Oximetry 100 04/02/24 06:03 Oxygen Delivery Method Room Air 04/02/24 06:03 Temperature 97.9 F 04/02/24 06:03 Pulse Rate 70 04/02/24 07:20 Respiratory Rate 16 04/02/24 07:20 Blood Pressure 94/70 04/02/24 07:20 Pulse Oximetry 99 04/02/24 07:20 Oxygen Delivery Method Room Air 04/02/24 07:20 <Hang Mena MD - Last Filed: 04/02/24 08:38> Medications Administered Medications: Discontinued Medications Generic Name Dose Route Start Last Admin Trade Name Freq PRN Reason Stop Dose Admin Lidocaine/Aluminum/Magnesium/Simeth 30 ml 04/02/24 06:27 04/02/24 06:40 Gi Cocktail (Visc Lido/Antacid) 30 Ml PO 04/02/24 06:28 30 ml ONCE ONE Administration Oxycodone/Acetaminophen 1 tab 04/02/24 07:26 04/02/24 07:36 Oxycodone/Apap 5-325 Tablet PO 04/02/24 07:27 1 tab ONCE ONE Administration <Amilcar Doll MD - Last Filed: 04/04/24 23:11> Discontinued Medications Generic Name Dose Route Start Last Admin Trade Name Nando PRN Reason Stop Dose Admin Lidocaine/Aluminum/Magnesium/Simeth 30 ml 04/02/24 06:27 04/02/24 06:40 Gi Cocktail (Visc Lido/Antacid) 30 Ml PO 04/02/24 06:28 30 ml ONCE ONE Administration Oxycodone/Acetaminophen 1 tab 04/02/24 07:26 04/02/24 07:36 Oxycodone/Apap 5-325 Tablet PO 04/02/24 07:27 1 tab ONCE ONE Administration <Hang Mena MD - Last Filed: 04/02/24 08:38> Medical Decision Making MDM Narrative Medical decision making narrative: Assumed care from my colleague. Workup is unremarkable with exception of chronic anemia. She does have some dilated bowel and I did re-examine her and find her belly to be soft. She has many abdominal surgeries in the past and this likely represents a postoperative change. At this time I did visit with her and looks as though her symptoms most likely are due to viral syndrome. Reassurance is offered symptomatic care primary care follow-up. <Hang Mena MD - Last Filed: 04/02/24 08:38> Lab Data Labs: Lab Results 04/02/24 04/02/24 Range/Units 06:35 Unknown WBC 9.91 (4.50-11.00) K/uL RBC 4.00 (4.00-5.20) m/uL Hgb 10.4 L (12.0-16.0) gm/dL Hct 32.6 L (33.0-51.0) % MCV 82 (80-100) fL MCH 26 (26-34) pg MCHC 32 (32-36) gm/dL RDW Coeff of Moises 13.0 (11.5-15.5) % Plt Count 354 (140-440) K/uL Neut % (Auto) 70.1 (42.0-72.0) % Lymph % (Auto) 17.3 L (20-44) % Emery % (Auto) 10.5 (0.0-11.0) % Eos % (Auto) 1.8 (0.0-7.0) % Baso % (Auto) 0.1 (0.0-3.0) % Neut # (Auto) 6.95 (1.7-7.0) K/uL Lymph # (Auto) 1.70 (0.90-2.90) K/uL Emery # (Auto) 1.00 H (0.00-0.90) K/UL Eos # (Auto) 0.18 (0.00-0.50) K/uL Baso # (Auto) 0.01 (0.00-0.30) K/uL Abs Immat Gran (auto) 0.02 (0.00-0.30) K/uL Imm/Tot Granulo (auto) 0.2 % Sodium 138 (135-149) mmol/L Potassium 3.6 (3.6-5.1) mmol/L Chloride 106 (96-114) mmol/L Carbon Dioxide 22 (20-32) mmol/L Anion Gap 10 (7-15) mEq/L BUN 8 (5-24) mg/dL Creatinine 0.5 (0.5-1.5) mg/dL Estimated Creat Clear 138.40 Estimated GFR 135 ml/min Glucose 90 (60-115) mg/dL Calcium 9.3 (8.4-10.6) mg/dL Total Bilirubin 0.7 (0.1-1.5) mg/dL Direct Bilirubin 0.3 (0.0-0.5) mg/dL AST 38 H (12-35) U/L ALT 50 H (4-35) U/L Alkaline Phosphatase 161 H (40-150) U/L Total Protein 8.0 (6.0-8.3) g/dL Albumin 4.2 (3.3-5.0) g/dL Lipase 485 H (23-300) U/L Urine HCG, Qual Negative (Negative) <mAilcar Doll MD - Last Filed: 04/04/24 23:11> Lab Results 04/02/24 04/02/24 Range/Units 06:35 Unknown WBC 9.91 (4.50-11.00) K/uL RBC 4.00 (4.00-5.20) m/uL Hgb 10.4 L (12.0-16.0) gm/dL Hct 32.6 L (33.0-51.0) % MCV 82 (80-100) fL MCH 26 (26-34) pg MCHC 32 (32-36) gm/dL RDW Coeff of Moises 13.0 (11.5-15.5) % Plt Count 354 (140-440) K/uL Neut % (Auto) 70.1 (42.0-72.0) % Lymph % (Auto) 17.3 L (20-44) % Emery % (Auto) 10.5 (0.0-11.0) % Eos % (Auto) 1.8 (0.0-7.0) % Baso % (Auto) 0.1 (0.0-3.0) % Neut # (Auto) 6.95 (1.7-7.0) K/uL Lymph # (Auto) 1.70 (0.90-2.90) K/uL Emery # (Auto) 1.00 H (0.00-0.90) K/UL Eos # (Auto) 0.18 (0.00-0.50) K/uL Baso # (Auto) 0.01 (0.00-0.30) K/uL Abs Immat Gran (auto) 0.02 (0.00-0.30) K/uL Imm/Tot Granulo (auto) 0.2 % Sodium 138 (135-149) mmol/L Potassium 3.6 (3.6-5.1) mmol/L Chloride 106 (96-114) mmol/L Carbon Dioxide 22 (20-32) mmol/L Anion Gap 10 (7-15) mEq/L BUN 8 (5-24) mg/dL Creatinine 0.5 (0.5-1.5) mg/dL Estimated Creat Clear 138.40 Estimated GFR 135 ml/min Glucose 90 (60-115) mg/dL Calcium 9.3 (8.4-10.6) mg/dL Total Bilirubin 0.7 (0.1-1.5) mg/dL Direct Bilirubin 0.3 (0.0-0.5) mg/dL AST 38 H (12-35) U/L ALT 50 H (4-35) U/L Alkaline Phosphatase 161 H (40-150) U/L Total Protein 8.0 (6.0-8.3) g/dL Albumin 4.2 (3.3-5.0) g/dL Lipase 485 H (23-300) U/L Urine HCG, Qual Negative (Negative) <Hang Mena MD - Last Filed: 04/02/24 08:38> Discharge Plan Discharge Clinical Impression: Acute viral syndrome <Amilcar Doll MD - Last Filed: 04/04/24 23:11> Patient Disposition: Home, Self-Care <Amilcar Doll MD - Last Filed: 04/04/24 23:11> Condition: Stable <Amilcar Doll MD - Last Filed: 04/04/24 23:11> Instructions: Viral Syndrome (ED) <Amilcar Doll MD - Last Filed: 04/04/24 23:11> Additional Instructions: Monitor symptoms Rest Fluids Follow-up with primary care as discussed. <Amilcar Doll MD - Last Filed: 04/04/24 23:11> Activity Level: No Restrictions <Amilcar Doll MD - Last Filed: 04/04/24 23:11> No Restrictions <Hang Mena MD - Last Filed: 04/02/24 08:38> Discharge Diet: Regular <Amilcar Doll MD - Last Filed: 04/04/24 23:11> Regular <Hang Mena MD - Last Filed: 04/02/24 08:38> Prescriptions: No Action Entyvio Pen 108 mg/0.68 mL pen injector 108 mg subcut MONTHLY benzonatate 100 mg capsule 100 mg PO TID PRN (Reason: cough) Qty: 20 0RF mercaptopurine 50 mg tablet 50 mg PO DAILY cyanocobalamin (vitamin B-12) 1,000 mcg/mL solution 1,000 mcg subcut .QMONTH calcium carbonate-vitamin D3 [Calcium 500 + D] 500 mg-10 mcg (400 unit) tablet 1 tab PO BID Qty: 60 0RF mirtazapine 15 mg Tablet 7.5 mg PO HS Qty: 30 0RF multivitamin with folic acid [Thera] 400 mcg Tablet 1 tab PO DAILY Qty: 30 0RF hydroxyzine HCl 25 mg tablet 12.5 - 25 mg PO Q6H PRN (Reason: anxiety) <Amilcar Doll MD - Last Filed: 04/04/24 23:11> Follow Up/Referrals: Provider,Not a Local [Non-Staff] - <Amilcar oDll MD - Last Filed: 04/04/24 23:11> Stand Alone Forms: MyHealth Info Instructions <Amilcar Doll MD - Last Filed: 04/04/24 23:11>
--- OUTSIDE RECORDS SUMMARY | 2024-04-02 06:47 | XMS_ITS | Clinical Summary ---
Author Organization [place] Address [address] [place] [address]. [place] [address] Care Team Providers Care Synthetic Chemist Name Role Phone No Ref-Primary, Physician Primary [...] mouth daily Active ergocalciferol (ERGOCALCIFEROL) 1.25 MG (17115 UT) capsule Take 50,000 Units by mouth [...] PM CDT Legal Sex Female 4:18 AM CENA Gender Identity Male 08/21/2022 3:08 PM CDT [...] Maintenance Results * HIV Antigen Antibody Combo [place] (09/25/2023 12:04 PM CDT) HIV Antigen Antibody [...] BLOOD ORDERABLES Final R esult [facility] [place] [facility] [address] [facility], [address] [place] [address], [facility] * Hepatitis C Screen Reflex to [...] BLOOD ORDERABLES Final R esult [facility] [place] [facility] [address] [place] [address], [address] [id number] * Chlamydia trachomatis/Neisseria gonorrhoeae by PCR (09/25/2023 11:01 AM CDT) Pathologist [facility] [place] Chlamydia Trachomatis Negative Negative 09/26/2023 2:16 PM CDT [facility] Comment: Negative for C. trachomatis rRNA by car washer mediated amplification. A negative result by car washer mediated amplification does not preclude the presence of infection because results are dependent on proper and adequate collection, absence of inhibitors and sufficient rRNA to be detected. Neisseria gonorrhoeae Negative Negative 09/26/2023 2:16 PM CDT [facility] Comment:Negative for N. gono rrhoeae rRNA by car washer mediated amplification. A negative result by car washer mediated amplification does not preclude the presence of C. trachomatis infection because results are dependent on proper and adequate collection, absence of inhibitors and sufficient rRNA to be detected. Swab CERVIX UTERI STRUCTURE / Unknown Non-blood Collection / Unknown 09/25/2023 11:01 AM CDT 09/25/2023 3:51 PM CDT us Stacy Horn MD LAB - MICRO GENERAL ORDERABLES Final Result [facility] Inf. Diseases Diag. Lab [address] 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
--- OUTSIDE RECORDS SUMMARY | 2024-04-02 06:47 | XMS_ITS | Encounter Summary ---
Author Organization [place] Address [address] [place] [address]. [place] [address] Care Team Providers Care Maintenance Carpenter Name Role Phone No Ref-Primary, Physician Primary Care Provider Encounter Details Date Type Department Care Team (Late st Contact Info) Description 07/28/2022 [facility] Services - General Medicine & Pediatrics [address] [place] [id number] Monty Garibay APRN ROD MILL TENDER [address] [place] [address] Social History Tobacco Use Types Packs/Day Years Used Date Smoking Tobacco: Never Smokeless Tobacco: Never Alcohol Use Standard Drinks/Week Comments Never 0 (1 standard drink = 0.6 oz pur e alcohol) Comments No Sex and Gender Information Value Date Recorded Sex Assigned at Male 08/21/2022 3:08 PM CDT 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 On logics (Entyvio in 6-merecaptopurine), recent steroids for back pain resents to outside hospital ([place]) for evaluation of sudden onset of abdominal pain and distention for hours. Noted to be mildly hypotensive with [...] ertapenem, NG tube placed. Being transferred to [facility] for definitive care. Known to [facility]. Monty Garibay APRN ROD MILL TENDER documented in this encounter Plan of Treatment Not on file documented as of this encounter Visit Diagnoses Not on filedocumented in this encounter Additional Health Concerns Infection Onset Date Last Indicated Resolved Time Rule Out C-difficile 08/03/2022 08/04/2022 023 11:39 AM CDT documented as of this encounter Care Teams Maintenance Carpenter Relationship Specialty Start Date End Date No Ref-Primary, Physician PCP - General 07/29/22 documented as of this encounter
--- OUTSIDE RECORDS SUMMARY | 2024-04-02 06:47 | XMS_ITS | Referral Summary ---
Author Organization [place] Address [address] [place] [address]. 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 Gender Identity Male 08/21/2022 3:08 PM CDT [...] Maintenance Results * HIV Antigen Antibody Combo [place] (09/25/2023 12:04 PM CDT) [facility] HIV Antigen Antibody Combo Nonreactive Nonreactive 09/25/2023 [...] - BLOOD ORDERABLES Final R esult [facility] [place] [facility] [address] [facility], [address] [id number] * Hepatitis C Screen Reflex to HCV RNA Quant and Genotype (09/25/2023 12:04 PM CDT) Pathologist [facility] Hepatitis C Antibody Nonreactive Nonreactive 09/25/2023 8:50 [...] - BLOOD ORDERABLES Final R esult [facility] [place] [facility] [address] [facility], [address] [id number] * Chlamydia trachomatis/Neisseria gonorrhoeae by PCR (09/25/2023 11:01 AM CDT) Pathologist [facility] Chlamydia Trachomatis Negative Negative 09/26/2023 2:16 PM CDT [facility] Comment: Negative for C. trachomatis rRNA by pilling machine operator mediated amplification. A negative result by pilling machine operator mediated amplification does not preclude the presence of infection because results are dependent on proper and adequate collection, absence of inhibitors and sufficient rRNA to be detected. Neisseria gonorrhoeae Negative Negative 09/26/2023 2:16 PM CDT [facility] Comment:Negative for N. gono rrhoeae rRNA by pilling machine operator mediated amplification. A negative result by pilling machine operator mediated amplification does not preclude the presence of C. trachomatis infection because results are dependent on proper and adequate collection, absence of inhibitors and sufficient rRNA to be detected. Swab CERVIX UTERI STRUCTURE / Unknown Non-blood Collection / Unknown 09/25/2023 11:01 AM CDT 09/25/2023 3:51 PM CDT us Stacy Horn MD LAB - MICRO GENERAL ORDERABLES Final Result [facility] Inf. Diseases Diag. 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
--- OUTSIDE RECORDS SUMMARY | 2024-04-02 06:47 | XMS_ITS | Clinical Summary ---
Author Organization [facility] Address [place], [place] [address] Care Team Providers Care Telephone Order Dispatcher Name Role Phone Анна Nowak DO Primary Care Provider [phone] Allergies Active Allergy Reactions Criticality Noted Date Comments Blood-Group Specific Substance Other - Describe In Comment Field 04/05/2022 Patient has a Suggestive Warm Auto antibody. Blood products may be delayed. Draw patient 24 hours prior to transfusion. 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 Gender Identity Not on file Sexual Orientation Not on file Obstetrics History Last Filed Vital Signs Vital Sign Reading Time Taken Comments Blood Pressure 89/57 09/25/2022 9:00 AM CDT Pulse 97 09/25/2022 9:00 AM CDT Temperature 36.4 C (97.6 F) 02/20/2022 8:43 AM CABLE INSTALLER REPAIRER Respiratory Rate 14 06/17/2022 8:47 AM CDT [...] this topic Insurance [id number] [place] [id number] [facility] Care Teams Telephone Order Dispatcher Relationship Specialty Start Date End Date Анна Nowak DO [address] [place] [address] PCP - General Family Practice 08/26/22
--- OUTSIDE RECORDS SUMMARY | 2024-04-02 06:47 | XMS_ITS | Continuity of Care Document ---
Author Name [facility] User [email or web address] Address Unknown Organization Unknown Address Unknown Procedures FILTER APPLIED:Only known Procedures with Onset Date within the last 5 years Procedure Date Procedure Provider Additional Inform ation Status X-RAY EXAM OF WRIST (18778) Completed EMERGENCY DEPT VISIT LOW MDM (43500) Completed APPLY FOREARM SPLINT (26003) Completed Encounters FILTER APPLIED:Only known Encounters with Admission Date within the last 5 years Encounter Location Admission Discharge Billing Code Coding Compliance Specialist Hardeep sanchez Outpatient [facility] [place]
[2024-04-02 07:07] LABS: Basophils Absolute Auto 0.01 K/uL (0.00-0.30); Basophils Percent Auto 0.1 % (0.0-3.0); Eosinophils Absolute Auto 0.18 K/uL (0.00-0.50); Eosinophils Percent Auto 1.8 % (0.0-7.0); Hematocrit 32.6 % (33.0-51.0); Hemoglobin* 10.4 gm/dL (12.0-16.0); Immature Granulocytes Abs Auto 0.02 K/uL (0.00-0.30); Immature Granulocytes Pct Auto 0.2 %; Lymphocytes Percent Auto 17.3 % (20-44); Mean Corpuscular HGB Conc 32 gm/dL (32-36); Mean Corpuscular Hemoglobin 26 pg (26-34); Mean Corpuscular Volume 82 fL (80-100); Monocytes Percent Auto 10.5 % (0.0-11.0); Neutrophils Absolute Auto 6.95 K/uL (1.7-7.0); Neutrophils Percent Auto 70.1 % (42.0-72.0); Platelet Count* 354 K/uL (140-440); White Blood Count* 9.91 K/uL (4.50-11.00)
[2024-04-02 07:09] LABS: Albumin* 4.2 g/dL (3.3-5.0); Chloride* 106 mmol/L (96-114); Potassium* 3.6 mmol/L (3.6-5.1); Sodium* 138 mmol/L (135-149)
[2024-04-02 07:11] LABS: Anion Gap 10 mEq/L (7-15); Carbon Dioxide* 22 mmol/L (20-32); Creatinine* 0.5 mg/dL (0.5-1.5); Estimated Glomerular Filt Rate 135 ml/min
[2024-04-02 07:12] LABS: Alanine Aminotransferase* 50 U/L (4-35); Alkaline Phosphatase* 161 U/L (40-150); Aspartate Amino Transferase* 38 U/L (12-35); Bilirubin Direct* 0.3 mg/dL (0.0-0.5); Bilirubin Total* 0.7 mg/dL (0.1-1.5); Blood Urea Nitrogen* 8 mg/dL (5-24); Calcium* 9.3 mg/dL (8.4-10.6); Glucose* 90 mg/dL (60-115); Lipase* 485 U/L (23-300)
[2024-04-02 07:13] LABS: Slide Review Reflex No
[2024-04-02 07:20] VITALS: BP 94/70; PULSE 70; RESP 16; O2SAT 99
--- NOTE | 2024-04-02 07:22 | CRLHL7_ITS ---
For Patients: As a result of the Century Cures Act, medical imaging exams and procedure reports are released immediately into your electronic medical record. You may view this report before your referring provider. If you have questions, please contact your health care provider. INDICATION: Epigastric pain. Elevated lipase. History of small-bowel obstruction July 28, 2022 COMPARISON: July 29, 2019 TECHNIQUE: CT examination of the abdomen and pelvis was performed without intravenous contrast. Thin section axial images were obtained from the lung bases through the pubic symphysis. Oral contrast was not administered. Please note that all CT scans at this facility use dose modulation, iterative reconstruction, and/or weight-based dosing when appropriate to reduce radiation dose to as low as reasonably achievable. FINDINGS: LUNG BASES: The lung bases as visualized appear normal.The heart size is normal at the lung bases. LIVER/BILIARY SYSTEM:The liver is normal in size and configuration given the lack of intravenous contrast. There is no visible focal mass and there is no intra- or extra hepatic biliary ductal dilatation.The gall bladder appears normal. ADRENALS: Normal non-contrast appearance KIDNEYS, URETERS and BLADDER:The kidneys appear normal given lack of intravenous contrast. No visible mass, calculus or hydronephrosis. The ureters and bladder as visualized appear normal. SPLEEN:Normal non-contrast appearance. PANCREAS: The pancreas is difficult to evaluate due to paucity of peritoneal fat planes and lack of contrast. There are faint peripancreatic inflammatory changes noted consistent with pancreatitis. No findings of necrosis or collection within the limitations of a noncontrast study RETROPERITONEUM and MESENTERY: There is no mass, adenopathy or aortic aneurysm. GASTROINTESTINAL SYSTEM: Postoperative changes involving the small bowel. There is dilated small bowel near an anastomotic site. This appears to be significantly distended measuring up to about 8.3 centimeters. There is no significant upstream dilation in this area and this might be a chronic finding the could represent an early or incomplete obstruction. This dilation in this area was not present July 28, 2022. PELVIS: No mass, adenopathy or free fluid. OSSEOUS STRUCTURES and ABDOMINAL WALL: There is an age-appropriate appearance of the osseous structures.No significant abdominal wall defect. OTHER: No free fluid or free air. IMPRESSION: 1. The pancreas is difficult to evaluate due to paucity of peritoneal fat planes and lack of contrast. Faint peripancreatic inflammatory changes noted consistent with pancreatitis. No evidence of necrosis or collection within the limitations of noncontrast study. 2. Postoperative changes involving the small bowel. Significantly dilated segment of small bowel near the anastomotic site in the low central abdomen. There is significant dilation of the small bowel at this site measuring up to 8.3 centimeters. No upstream dilation. The dilation in this area is new. This could be a chronic finding though the possibility of an early or incomplete obstruction should be considered clinically. From an imaging perspective, could be further studied by repeat CT with oral contrast Please note that all CT scans at this facility use dose modulation, iterative reconstruction, and/or weight-based dosing when appropriate to reduce radiation dose to as low as reasonably achievable. Dictated by Lowell Marques MD @ 04/02/2024 8:10:14 AM (Electronically Signed)
[2024-04-02] MEDS: OxyCODONE/APAP 5-325 TABLET 1 TAB PO (07:36)
[2024-04-02 07:49] LABS: Ur HCG Qualitative* Negative (Negative)
== END 2024-04-02 08:53 | disposition home or self-care (01) ==
PROVIDERS: Emergency Provider Family Medicine; PCP Family Medicine
DX: B34.9 Viral infection, unspecified (principal)
CPT/HCPCS: 36415; 74176; 80048; 80076; 81025; 83690; 85025; 99282; 99283; 99284; A9270

== ENCOUNTER 2024-06-28 14:23 | Outpatient (CLI) | payer BC, SELFPAY | END 2024-06-28 14:24 | disposition home or self-care (01) | LOC: AMB 06-29 10:49 | PROVIDERS: PCP Family Medicine; Visit Provider Student in an Organized Health Care Education/Training Program | DX: R06.09 Other forms of dyspnea (principal); R07.9 Chest pain, unspecified | CPT/HCPCS: A0425; A0429 ==